=== PATIENT | female | born 2005 | race Caucasian/White ===

== ENCOUNTER 2025-06-06 02:26 | Inpatient (IN) | payer OTHER, SELFPAY ==
[2025-06-06] VITALS (25 sets, daily range): BP systolic 93–159; BP diastolic 64–100; PULSE 96–156; RESP 12–22; TEMP 36.4–37.4; O2SAT 97–100; BMI 22.0
--- NOTE | ~2025-06-06 | CT_ITS ---
EXAMINATION: CT abdomen pelvis w con DATE: 06/06/2025 03:25 INDICATION: Right abdominal pain TECHNIQUE: Computed tomography (CT) of the abdomen and pelvis was performed with 100 cc intravenous contrast. The dose-length product was 217.07 mGy-cm. Automated exposure control and iterative reconstruction technique were employed. COMPARISON: None. FINDINGS: Lung bases unremarkable. Heart size normal. No significant pleural or pericardial effusion. There is thickening of the appendix measuring 1 cm. There are small ileocecal lymph nodes, likely reactive. Small amount of free fluid is present. Appendix demonstrates thickening and mural enhancement, consistent with acute appendicitis. There are multiple enlarged lymph nodes in the right upper abdomen mesentery. There is thickening of the cecum. There is dilated distal small bowel extending to the ileocecal junction, consistent with at least partial obstruction. IUD present. Small amount of free fluid in the pelvis. The liver, spleen, pancreas, adrenal glands and right kidney are unremarkable. Severely atrophic left kidney. Gallbladder is present. No acute osseous abnormality. IMPRESSION: 1. Acute appendicitis. 2: Thickening of the cecum, likely reactive which possibly contributes to partial small bowel obstruction at the ileocecal valve. The small bowel proximal to this is thickened and dilated. No evidence for bowel perforation. No abscess identified. 3: Severe atrophic left kidney. Reviewed, dictated and finalized at location O. IMPRESSION: 1. Acute appendicitis. 2: Thickening of the cecum, likely reactive which possibly contributes to parti al small bowel obstruction at the ileocecal valve. The small bowel proximal to this is thickened and dilated. No evidence for bowel perforation. No abscess id entified. 3: Severe atrophic left kidney.
[2025-06-06 02:44] LABS: BEDSIDEPREGUCG Negative (Negative)
--- NOTE | 2025-06-06 02:44 | ED_ITS ---
HPI - Abdominal Pain General Chief Complaint: Abdominal Pain Stated Complaint: abd pain / n/ v/ d Time Seen by Provider: 06/06/25 02:31 History of Present Illness HPI narrative: 19-year-old otherwise healthy female presenting with intermittent right lower quadrant and right upper quadrant pain for a week. Reports nausea vomiting and diarrhea that started yesterday night but symptoms going on for a week for pain. Intermittent in nature. Tried Pepcid home with some intermittent relief. Is scheduled for an outpatient ultrasound of her gallbladder on Tuesday but pain worsening so she came to the ER. No abdominal surgical history. Has an IUD for control. Endorses feeling of fever. No chills, dysuria, vaginal discharge. No recent international travel or new dietary changes or anyone else with similar symptoms at home. No trauma. Related Data Home Medications ?Medication ?Instructions ?Recorded ?Confirmed ?Last Taken ?Type famotidine 20 mg tablet 20 mg PO Q12H PRN indigestio n 06/06/25 06/06/25 Unknown History Allergies Allergy/AdvReac Type Severity Reaction Status Date / Time cefdinir (From [employer] Allergy Intermediate Hives Verified 06/06/25 05:47 Review of Systems 2 Review of Systems: As reviewed above in HPI Exam 2 Narrative: GENERAL: [Well-appearing, well-nourished, and in no acute distress.] HEAD: [Normocephalic, atraumatic.] EYES: [PERRLA and EOMI.] ENT: Nares clear, no rhinorrhea or epistaxis. Mucous membranes moist. NECK: Supple. CHEST: [Clear to auscultation. No respiratory distress.] HEART: Tachycardic rate, regular rhythm. No murmur heard. [Normal peripheral pulses.] ABDOMEN: [Soft, nondistended], tender to palpation the right lower quadrant, minimal tenderness in the epigastrium/right upper quadrant, [No rigidity or guarding] EXTREMITIES: Normal range of motion. [No edema.] SKIN: Warm, dry, no rash. NEURO: [No focal deficits]. Alert and oriented [x3.] PSYCH: [Normal mood and affect.] Course Vital Signs Vital signs: Vital Signs Temperature 36.5 C 06/06/25 02:37 Pulse Rate 156 H 06/06/25 02:37 Respiratory Rate 18 06/06/25 02:37 Blood Pressure 159/100 H 10/23/25 02:37 Pulse Oximetry 100 06/06/25 02:37 Oxygen Delivery Room Air 06/06/25 02:37 Temperature 36.5 C 06/06/25 02:37 Pulse Rate 102 H 06/06/25 04:46 Respiratory Rate 14 06/06/25 04:46 Blood Pressure 124/81 06/06/25 04:45 Pulse Oximetry 98 06/06/25 04:46 Oxygen Delivery Room Air 06/06/25 02:37 MDM - Abdominal Pain MDM Narrative Medical decision making narrative: 19-year-old otherwise healthy female presenting with intermittent right lower quadrant and right upper quadrant pain for a week. Reports nausea vomiting and diarrhea that started yesterday night but symptoms going on for a week for pain. Intermittent in nature. Tried Pepcid home with some intermittent relief. Is scheduled for an outpatient ultrasound of her gallbladder on Tuesday but pain worsening so she came to the ER. No abdominal surgical history. Has an IUD for control. Endorses feeling of fever. No chills, dysuria, vaginal discharge. No recent international travel or new dietary changes or anyone else with similar symptoms at home. No trauma. Patient is very tachycardic and afebrile. Does have reproducible pain in the right lower quadrant. States she has some anxiety about being in the emergency department for the 1st time as well. Overall well-appearing not any acute distress. Given the volume loss with vomiting and diarrhea as well as pain likely driving her tachycardia but will after rule out infectious pathology as well with suspicion for possible appendicitis, cholecystitis, pancreatitis. Less likely urinary tract infection, facilities flight check pilot is, pyelonephritis, OB in nature. Broad workup underway. test ordered. She was treated with LR, Zofran, Pepcid, Toradol. CT scan with contrast obtained. Patient placed on staff trainer and re-evaluated frequently. CT scan independently reviewed and does show right lower quadrant inflammation consistent with appendicitis. Radiology confirms appendicitis as well as a local ileus versus small-bowel obstruction localized around the area. Patient's tachycardia resolved with pain control and fluids. Started on Zosyn given her allergies cefdinir. Spoke to Dr. Canseco from General surgery regarding plan of care. Will switch her to opiate level of pain control and admitted to the hospital for further management. Informed the patient of the findings and plan of care and patient was admitted to surgery at this time. Medical Records Attestation: I reviewed the patient's medical records. Lab Data Attestation: I reviewed the patient's lab results. 06/06/25 02:41 06/06/25 02:41 Labs: Lab Results 06/06/25 06/06/25 06/06/25 Range/Units 02:41 02:42 03:53 WBC 13.5 H (4.5-10.0) K/mm3 RBC 5.39 (4.2-5.4) M/mm3 Hgb 11.8 L (12.0-15.0) g/dL Hct 39.2 (37.0-47.0) % MCV 72.7 L (80-100) fl MCH 21.9 L (26-34) pg MCHC 30.1 L (32-36) g/dl RDW 15.7 H (11.5-14.5) % Plt Count 502 H (150-375) k/mm3 MPV 8.6 (7.4-10.4) fl Immature Gran % (Auto) 0.4 (0-0.5) % Neut % (Auto) 79.6 H (45.5-73.1) % Lymph % (Auto) 14.1 L (18.3-44.2) % [place] % (Auto) 5.3 (2.6-8.5) % Eos % (Auto) 0.4 (0-4.4) % Baso % (Auto) 0.2 (0.2-1.2) % Lymph # (Auto) 1.90 (0.9-3.2) K/mm3 [place] # (Auto) 0.7 H (0.1-0.6) K/mm3 Eos # (Auto) 0.1 (0-0.3) K/mm3 Baso # (Auto) 0.0 (0.0-0.1) K/mm3 Abs Immat Gran (auto) 0.06 H (0.00-0.031) K/mm3 Absolute Neuts (auto) 10.7 H (1.3-6.7) K/mm3 Absolute Nucleated RBC 0.000 (0.0-0.012) K/mm3 Nucleated RBC % 0.0 (0.0-0.2) % Sodium 137 (137-145) mmol/L Potassium 3.7 (3.4-5.0) mmol/L Chloride 102 (98-107) mmol/L Carbon Dioxide 24 (22-30) mmol/L Anion Gap 11 (4-12) mmol/L BUN 12 (7-17) mg/dL Creatinine 0.91 (0.7-1.0) mg/dL Estim Creat Clear Calc 65 ml/min Estimated GFR > 60 (59 - ) Glucose 118 H (65-110) mg/dL Lactic Acid 0.9 (0.7-2.0) mmol/L Calcium 9.6 (8.4-10.2) mg/dL Total Bilirubin 0.6 (0.2-1.3) mg/dL AST 19 (14-36) U/L ALT 11 (6-35) U/L Alkaline Phosphatase 84 (38-126) U/L Total Protein 8.5 H (6.3-8.2) g/dL Albumin 4.3 (3.5-5.1) g/dL Lipase 48 (23-300) U/L Urine Color Yellow (Yellow) Urine Appearance Turbid H (Clear) Urine pH 6.5 (5.0-9.0) Ur Specific [place] 1.026 (1.001-1.035) Urine Protein 1+ H (Negative) mg/dL Urine Glucose (UA) Negative (Negative) mg/dL Urine Ketones 2+ H (Negative) mg/dL Ur Blood (Man) Trace (Negative) Urine Nitrate Negative (Negative) Urine Bilirubin Negative (Negative) Urine Urobilinogen 1.0 (<2.0) mg/dL Add Ur Microanalysis Reviewed Leukocyte Esterase Rfl 1+ H (Negative) APARNA/UL Urine RBC 6-10 H (0-2) /hpf Urine WBC 21-50 H (0-3) /hpf Ur Squamous Epith Cells Many H (Few) /hpf Urine Bacteria 4+ H /hpf Urine Casts 3-5 POC Urine HCG, Qual Negative (Negative) Imaging Data Attestation: I personally reviewed and interpreted this imaging study as follows: My impression: Appendicitis Discharge Plan Discharge Clinical Impression: Acute appendicitis Patient Disposition: Still a Patient Condition: Stable Time of Disposition: 05:48
[2025-06-06] MEDS: LACTATED RINGERS 1,000 ML 999 ML IV CONT (02:47)
[2025-06-06] MEDS: FAMOTIDINE 20 MG/2 ML VIAL IV PUSH (02:47)
[2025-06-06] MEDS: ONDANSETRON INJ 4 MG/2 ML VIAL IV PUSH (02:47)
[2025-06-06] MEDS: KETOROLAC 15 MG/ML VIAL (*BKC) IV PUSH ×3 (02:48→22:57)
[2025-06-06 02:51] LABS: Hematocrit 39.2 % (37.0-47.0); Hemoglobin 11.8 g/dL (12.0-15.0); Immature Granulocyte Percent A 0.4 % (0-0.5); Lymphocytes Absolute Auto 1.90 K/mm3 (0.9-3.2); Mean Corpuscular HGB Conc 30.1 g/dl (32-36); Mean Corpuscular Hemoglobin 21.9 pg (26-34); Mean Corpuscular Volume 72.7 fl (80-100); Nucleated Red Blood Cells Absolute Auto 0.000 K/mm3 (0.0-0.012); Nucleated Red Blood Cells Perc 0.0 % (0.0-0.2); Platelet Count Result 502 k/mm3 (150-375); Red Blood Count 5.39 M/mm3 (4.2-5.4); White Blood Count 13.5 K/mm3 (4.5-10.0)
[2025-06-06 02:59] LABS: Add Urine Microscopic? YES; Appearance Urine Turbid (Clear); Glucose Urine UA Negative (Negative); Leukocyte Esterase Ur 1+ LEU/UL (Negative); Need Manual Microscopic Reviewed; Nitrate Urine Negative (Negative); Specific Grav Ur 1.026 (1.001-1.035)
[2025-06-06 03:03] LABS: Alanine Aminotransferase 11 U/L (6-35); Albumin Level 4.3 g/dL (3.5-5.1); Alkaline Phosphatase 84 U/L (38-126); Anion Gap 11 mmol/L (4-12); Aspartate Amino Transferase 19 U/L (14-36); Bilirubin,Total 0.6 mg/dL (0.2-1.3); Blood Urea Nitrogen 12 mg/dL (7-17); Calcium 9.6 mg/dL (8.4-10.2); Carbon Dioxide 24 mmol/L (22-30); Chloride 102 mmol/L (98-107); Estimated CRCL calculation 65 ml/min; Estimated Glomerular Filt Rate > 60; Glucose 118 mg/dL (65-110); Lipase 48 U/L (23-300); Potassium 3.7 mmol/L (3.4-5.0); Sodium 137 mmol/L (137-145); Total Protein 8.5 g/dL (6.3-8.2)
--- OUTSIDE RECORDS SUMMARY | 2025-06-06 03:33 | XMS_ITS | Clinical Summary ---
Author Organization [address] Address [address] [place] [address] Care Team Providers Care Tobacco Acreage Measurer Name Role Phone Francy Juarez MD Primary Care Provider [phone] Allergies Active Allergy Reactions Criticality Noted Date Comments Cefdinir Hives High 04/06/2007 Hives 24 hours after completing course? Allergy Medications levonorgestreL (MIRENA) IUD 1 each by intrauterine route 02/28/20 25 041 Active famotidine (PEPCID) 20 mg tabletIndications :Heartburn Take 1 tablet (20 mg total) by mouth 2 (two) times a day 60 tablet 11 05/29/20 25 026 Active lidocaine (GLYDO) 2 % jelly in applicator Apply topically as needed 02/28/20 25 025 Discontinu ed(Patient Reported) ondansetron (ZOFRAN) 4 mg tablet Take 1 tablet (4 mg total) by mouth every 8 (eight) hours as needed for nausea or vomiting for up to 3 days 9 tablet 05/09/20 25 025 Discontinu ed(Alterna te therapy) ondansetron ODT (ZOFRAN-ODT) 4 mg disintegrating tabletIndications :Nausea vomiting and diarrhea Take 1 tablet (4 mg total) by mouth every 8 (eight) hours as needed for nausea or vomiting 10 tablet 05/09/20 25 025 Discontinu ed(Patient Reported) fluconazole (DIFLUCAN) 150 mg tablet Take 1 tablet (150 mg total) by mouth once for 1 dose 1 tablet 10/04/20 25 10/04/2 025 Active Problems Problem Noted Date Diagnosed Date IUD (intrauterine device) in place 03/20/2025 Acute otitis externa 06/27/2013 Overview (05/09/2025): OV-06/27/13; OV-03/21/14; Cerumen impaction 06/27/2013 Overview (05/09/2025): OV-06/27/13 - Right; Encounters Date Type Department Care Team Description 05/29/2025 3:00 PM CDT Office Visit [facility] at [address] [address] Francy Juarez MD Abdominal pain of multiple sites (Primary Dx); Indigestion 05/28/2025 3:45 PM CDT Office Visit [facility] at [address] [phone] Dee Arnett NP Chronic RLQ pain (Primary Dx) 05/20/2025 Telephone [facility] [address] [address] Yvette Khoury LPN 05/18/2025 8:10 PM CDT - 05/18/2025 11:59 PM CDT Hospital Encounter [address] [address] Discharge Disposition: Discharge to home or self care 05/18/2025 4:15 PM CDT Office Visit [facility] at [address] [address] Shama Hawk NP Vaginal discharge (Primary Dx) 05/09/2025 8:30 AM CDT Office Visit [facility] at [address] [address] Az Becerra NP Nausea vomiting and diarrhea (Primary Dx); Tachycardia from Last 3 Months Immunizations Immunization Administration Dates Next Due DTaP 02/16/2006,05/18/2005 DTaP / HiB / IPV 03/12/2005 DTaP / IPV 03/25/2010 HPV9 02/21/2019,03/15/2016 Hep A, Pediatric 03/15/2016,03/21/2014 Hep B Vaccine 05/18/2005,2004 Hep B, Adolescent or Pediatric 03/12/2005 Hib (PRP-T) 11/24/2005,05/18/2005,01/07/2005 IPV 05/18/2005 Influenza, Quadrivalent, Spl it, Preservative Free, Intramuscular 06/07/2018,06/27/2013 Influenza, Trivalent, IM (MDV) 05/03/2012,2009,06/28/2007 Influenza, Trivalent, Preser vative Free, Intramuscular 07/02/2011,06/19/2010,06/20/2009 MMR 11/24/2005 MMRV 03/25/2010 Meningococcal Conjugate (Menveo) 03/30/2022,08/0 08/2015 Pneumococcal, Unspecified 11/24/2005,11/2004,03/12/2005,01/07 Tdap 03/15/2016 Varicella 02/16/2006 Surgical History Surgery Date Site/Laterality Comments TONSILLECTOMY Family History Relation Name Status Comments Father Alive Mother Alive Social History Tobacco Use Types Packs/Day Years Used Date Smoking Tobacco: Never Smokeless Tobacco: Never Tobacco Cessation:Counseling Given: Not Answered Alcohol Use Standard Drinks/Week Comments Never 0 (1 standard drink = 0.6 oz pur e alcohol) PHQ-2 Answer Date Recorded PHQ-2 Total Score (If total score is 3 or more points, staff should administer the PHQ-9) 0 05/29/2025 AUDIT-C Answer Date Recorded Q1: How often do you have a drink containing alcohol? Never 05/29/2025 Q2: How many drinks containi ng alcohol do you have on a typical day when you are drinking? Patient does not drink Q3: How often do you have si x or more drinks on one occasion? Never 05/29/2025 Comments Unknown Sex and Gender Information Value Date Recorded Sex Assigned at Not on file Legal Sex Female 8:14 AM CDT Gender Identity Not on file Sexual Orientation Not on file Obstetrics History Last Filed Vital Signs Vital Sign Reading Time Taken Comments Blood Pressure 122/78 05/29/2025 3:12 PM CDT Pulse 92 05/29/2025 3:12 PM CDT Temperature 36.6 C (97.9 F) 05/29/2025 3:12 PM CDT Respiratory Rate 16 05/29/2025 3:12 PM CDT Oxygen Saturation 99% 05/29/2025 3:12 PM CDT Inhaled Oxygen Concentration - - Weight 51.9 kg (114 lb 6.4 oz) 05/29/2025 3:12 P M CDT Height 154.9 cm (5' 1) 05/29/2025 3:12 PM CDT Body Mass Index 21.62 05/29/2025 3:12 PM CDT Plan of Treatment Health Maintenance Due Date Last Done Comments Regular Well Visit/Exam 18-64 2022 Influenza Vaccine (#1) 2026 8, 06/27/2013, 05/03/2012, Additional history exists Postponed from 04/15/2025 (Patient declined, but will receive in the future) DTaP/Tdap/Td Vaccine (6 - Td or Tdap) 03/15/2026 03/15/2016, 03/25/2010, 02/16/2006, Additional history exists Depression Screening 05/29/2026 05/29/2025 Hepatitis C Screening 05/29/2026 Postpo patricio from 2004 (Patient declined, but will receive in the future) Hepatitis B Screening Completed 05/18/2005 , 03/12/2005, 2004 Pneumococcal vaccine <65 Aged Out 006, 05/18/2005, 03/12/2005, Additional history exists No longer eligible based on patient's age to complete this topic Varicella Vaccines Completed 03/25/2010, 02/16/2006 HPV Vaccines Completed 02/21/2019, 03/15/2016 Meningococcal Vaccine Completed 03/30/2022, 016 Meningococcal B Vaccine Discontinued Procedures Procedure Name Priority Date/Time Associated Diagnosis Comments VAGINITIS PANEL Routine 05/18/2025 4:29 PM CDT from Last 3 Months Results * Vaginitis panel Vaginal (05/18/2025 4:29 PM CDT) Bacterial Vaginosis Not Detected Not Detected Comment:A negative result do es not preclude a possible infection. Results should be considered in conjunction with clinical presentation to determine the disease status. Iram group Not Detected Not Detected [facility] Iram glabrata/ krusei Not Detected Not Detected [facility] Trichomonas DNA Not Detected Not Detected [facility] Vaginal 05/18/2025 4:29 PM CDT 05/18/2025 8:19 PM CDT Narrative [facility] - 05/18/2025 9:19 PM CDT The [employer] Xpert Xpress MVP test detects DNA targets from anaerobic bacteria associated with bacterial vaginosis, Iram species associated with vulvovaginal candidiasis, and Trichomonas vaginalis by nucleic acid amplification testing (NAAT). Results should be interpreted in conjunction with other clinical data. This test cannot be used to assess therapeutic success or failure because target nucleic acids may persist following antimicrobial therapy. This test has been cleared by the [place] Food and Drug Administration to aid in the diagnosis of vaginal infections in symptomatic women ages 14 and older. The performance characteristics of this test have been verified by the Laboratory. Shama Hawk NP LAB MICROBIOLOGY - GENERAL ORDERABLES Final Result [facility] [address] Department [place] [address] from Last 3 Months Insurance [facility] Care Teams Tobacco Acreage Measurer Relationship Specialty Start Date End Date Francy Juarez MD [address] [address] PCP - General Family Medicine 05/29/25
--- OUTSIDE RECORDS SUMMARY | 2025-06-06 03:33 | XMS_ITS | Clinical Summary ---
Author Organization [facility] Address [address] [place] [address] Care Team Providers Care Transition Coach Name Role Phone Patient, None Per Primary Care Provider Unavaila ble Source Comments This disclosure is being made pursuant to the [employer] program and maynot contain all information available regarding this patient.[facility] Allergies Active Allergy Reactions Criticality Noted Date Comments Cefdinir Hives High 04/06/2007 Hives 24 hours after completing course? Allergy Medications No known medications Immunizations Immunization Administration Dates Next Due Influenza, Inactivated, Triv alent, 3 years and older, single dose syringe 06/13/2014 Social History Tobacco Use Types Packs/Day Years Used Date Smoking Tobacco: Never Smokeless Tobacco: Never Alcohol Use Standard Drinks/Week Comments No 0 (1 standard drink = 0.6 oz pur e alcohol) Comments No Sex and Gender Information Value Date Recorded Sex Assigned at Not on file Legal Sex Female 7:57 PM PLATEMAKER Gender Identity Not on file Sexual Orientation Not on file Last Filed Vital Signs Vital Sign Reading Time Taken Comments Blood Pressure 110/70 04/29/2018 9:21 AM CDT Pulse 102 04/29/2018 9:21 AM CDT Temperature 36.2 C (97.2 F) 04/29/2018 9:21 AM CDT Respiratory Rate 18 06/13/2015 5:46 PM CDT Oxygen Saturation 99% 04/29/2018 9:21 AM CDT Inhaled Oxygen Concentration - - Weight 52.4 kg (115 lb 9.6 oz) 04/29/2018 9:21 A M CDT Height 153.7 cm (5' 0.5) 04/29/2018 9:21 AM CDT Body Mass Index 22.2 04/29/2018 9:21 AM CDT Plan of Treatment Health Maintenance Due Date Last Done Comments Lab-Cholesterol Screening 2004 Lab-Hepatitis C Screening 2004 HPV Vaccine (9-26yo & Shared Decision 27-45yo) (1 - 3-dose series) 11/11/2019 Chlamydia Screening 2020 Meningococcal B Vaccine (1 o f 2 - Standard) 2020 Annual Wellness Visit 2022 Hepatitis B Vaccine (1 of 3 - 19+ 3-dose series) 11/11/2023 Tetanus/Pertussis Vaccine Teen/Adult (1 - Tdap) 11/11/2023 COVID-19 Vaccine (3 - 2024-2 6 season) 2025 01/09/2021, 12/19/2020 Influenza Vaccine (#1) 2025 4, 06/28/2007 Zoster (Shingles) Vaccine 50 + (1 of 2) 2054 RSV Adult (1 - 1-dose 75+ series) 11/11/2079 HIB Vaccine Aged Out No longer eligi ble based on patient's age to complete this topic Hepatitis A Vaccine Aged Out No longe r eligible based on patient's age to complete this topic IPV Vaccine Aged Out No longer eligi ble based on patient's age to complete this topic Meningococcal Conjugate Vaccine Aged Out No longer eligible b ased on patient's age to complete this topic Pneumococcal Vaccines 0-49 yo Aged Out No longer eligible based on patient's age to complete this topic RSV < 20 Months Aged Out No longer el igible based on patient's age to complete this topic Insurance Care Teams Transition Coach Relationship Specialty Start Date End Date Patient, None Per PCP - General 06/13/15
--- OUTSIDE RECORDS SUMMARY | 2025-06-06 03:33 | XMS_ITS | Clinical Summary ---
Author Organization [facility] Address [address] [place] [address] Phone Care Team Providers Care Fell Cutter Name Role Phone Identified, No Provider Primary Care Provider Un available Allergies Active Allergy Reactions Criticality Noted Date Comments Cefdinir Hives High 04/06/2007 Hives 24 hours after completing course? Allergy Medications Hospital, Clinic, or Other Facility Administered Medication Ordered Dose Route Frequency Start Date End Date Status levonorgestreL (Mirena) 21 mcg/24 hr intrauterine device (IUD) 1 eachIndications:Encount er for IUD insertion 1 each IU Every 8 Years 02/27/2025 02/23/2041 A ctive lidocaine (Glydo) 2 % mucosal gel [id number]:Enco unter for IUD insertion TP NEEDED 02/27/2025 A ctive Active Problems Problem Noted Date Diagnosed Date IUD (intrauterine device) in place 03/20/2025 Encounters Date Type Department Care Team Description 03/20/2025 9:15 AM CDT Office Visit [facility] APPLICATION SUPPORT INTERN [facility] [address] [address] Judy Lowry, MANAN IUD check up (Primary Dx); IUD (intrauterine device) in place from Last 3 Months Social History Tobacco Use Types Packs/Day Years Used Date Smoking Tobacco: Never Smokeless Tobacco: Never Tobacco Cessation:Counseling Given: Not Answered Alcohol Use Standard Drinks/Week Comments Never 0 (1 standard drink = 0.6 oz pur e alcohol) Comments No Sex and Gender Information Value Date Recorded Sex Assigned at Not on file Legal Sex Female 5:17 PM CDT Gender Identity Not on file Sexual Orientation Not on file Last Filed Vital Signs Vital Sign Reading Time Taken Comments Blood Pressure 117/75 03/20/2025 9:08 AM CDT Pulse 99 03/20/2025 9:08 AM CDT Temperature - - Respiratory Rate 18 03/20/2025 9:08 AM CDT Oxygen Saturation 100% 03/20/2025 9:08 AM CDT Inhaled Oxygen Concentration - - Weight 52.6 kg (116 lb) 03/20/2025 9:08 AM CDT Height 152.4 cm (5') 03/20/2025 9:08 AM CDT Body Mass Index 22.65 03/20/2025 9:08 AM CDT Plan of Treatment Upcoming Encounters Date Type Department Care Team (Late st Contact Info) Description 03/20/2026 9:30 AM CDT Physical [facility] APPLICATION SUPPORT INTERN [facility] [address] [place] [address] Judy Lowry, CNM [address] [facility] [address] [address] [address] [place], [place] [id number] Health Maintenance Due Date Last Done Comments Chlamydia Screening 11/11/2019 Meningococcal B Vaccine (1 of 2 - Standard) 2020 COVID-19 Vaccine (3 - season) 2025 01/09/2021, 12/19/2020 Influenza Vaccine (#1) 2025 8, 06/13/2014, 06/27/2013, Additional history exists DTaP/Tdap/Td Vaccines (7 - Td or Tdap) 03/15/2026 03/15/2016, 03/25/2010, 02/16/2006, Additional history exists Depression Screening 03/20/2026 03/20/2025, 02/28/20 25 Hepatitis B Vaccines Completed 05/18/2005, 05/18/2005, 03/12/2005, Additional history exists HIB Vaccines Completed 11/24/2005, 11/13, 05/18/2005, Additional history exists Pneumococcal Vaccines Aged Out 11/24/2005 , 11/24/2005, 05/18/2005, Additional history exists No longer eligible based on patient's age to complete this topic IPV Vaccines Completed 03/25/2010, 11/2004, 05/18/2005, Additional history exists MMR Vaccines Completed 03/25/2010, 11/24/2005 Varicella Vaccines Completed 03/25/2010, 02/16/2006 Hepatitis A Vaccines Completed 03/15/2016, 03/21/20 14 HPV Vaccines Completed 02/21/2019, 03/15/2016 Meningococcal Vaccine (ACWY) Completed 03/30/2022, 03/15/2016 Rotavirus Vaccines Aged Out No longer eligible based on patient's age to complete this topic Insurance Care Teams Fell Cutter Relationship Specialty Start Date End Date Identified, No Provider PCP - General 01/29/25
--- OUTSIDE RECORDS SUMMARY | 2025-06-06 03:33 | XMS_ITS | Clinical Summary ---
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 Allergy Medications fluconazole (DIFLUCAN) 150 MG TabletIndicatio ns:Vaginal candidiasis Take 1 tab PO x1 dose and repeat dose in 72 hours. 2 Tablet 5 Active Additional Information Patient not taking.Reported on 05/12/2025 levonorgestrel (MIRENA) 20 MCG/DAY IUD 1 Each by Intrauterine route. 5 02/24/20 41 Active Active Problems Problem Noted Date Diagnosed Date Acute otitis externa 06/27/2013 Overview (03/21/2014): OV-06/27/13; OV-03/21/14; Cerumen impaction 06/27/2013 Overview (06/27/2013): OV-06/27/13 - Right; Resolved Problems Problem Noted Date Diagnosed Date Resolved Date Mild intermittent asthma 11/08/2011 Enlargement - tonsil/adenoid 11/18/2009 03/25/2010 Otitis media 08/10/2009 03/25/2010 Overview (08/10/2009): Ov-08/07/09; Chronic serous otitis media 07/09/2009 03/25/2010 Constipation 11/03/2008 03/25/2010 Overview (11/03/2008): Dr. Rooney 03/22 Asthma 06/12/2008 11/08/2011 Overview (11/03/2008): Dr. Montoya; asthma pulmicort, singulair; home neb Premature 2004 06/12/2008 Overview (04/12/2008): 26 5/7 Speech delay 03/25/2010 Overview (04/12/2008): EI Developmental delay 03/25/20 10 Motor skill disorder 010 Overview (04/12/2008): Motor Delay- EI Encounters Date Type Department Care Team Description 05/12/2025 12:05 PM CDT Urgent Care Visit [facility] [address] [place] [address] Gregory Lopez MD Vaginal discharge (Primary Dx) Discharge Disposition: Discharged to home or Selfcare 05/12/2025 Results Follow-Up [facility] Rafita Hernandez [address] [place] [address] Gregory Lopez MD VAGINITIS SCREEN, MOLECULAR 05/12/2025 Travel 03/28/2025 12:45 PM CDT Office Visit [facility] [address] [place] [address] Carmen Sharpe, FEMI, WIND TUNNEL TECHNICIAN Encounter for PPD skin test reading (Primary Dx) Discharge Disposition: Discharged to home or Selfcare 03/27/2025 9:00 AM CDT [facility] [address] [place] [address] Brittney Gan, REPRODUCTION PRODUCTION MANAGER, WIND TUNNEL TECHNICIAN Pre-school health examination (Primary Dx) Discharge Disposition: Discharged to home or Selfcare 03/26/2025 11:30 AM CDT [facility] [address] [place] [address] Geena Buitrago, REPRODUCTION PRODUCTION MANAGER, WIND TUNNEL TECHNICIAN Encounter for PPD test (Primary Dx) Discharge Disposition: Discharged to home or Selfcare 03/26/2025 Travel from Last 3 Months Immunizations Immunization Administration Dates Next Due DTAP VACCINE 02/16/2006,05/18/2005 DTAP/HIB/IPV COMBINED VACCINE 03/12/2005 HIB Vaccine (PRP-T) 11/24/2005,05/18/2005,2004 Hepatitis B Vaccine 05/18/2005,2004 Hepatitis B Vaccine, Pediatric/adolescent 03/12/2005 Human Papillomavirus (HPV) 9 -valent Vaccine 02/21/2019 Inactivated Polio Vaccine 05/18/2005 Influenza Vaccine greater than 3 yrs 06/28/2007 Influenza Vaccine, Quadrivalent, PF 06/07/2018 MMR Vaccine 11/24/2005 Meningococcal MCV4O 03/30/2022 Pneumococcal Vaccine Peds 11/24/2005,11/2004,03/12/2005,01/07 VFC DTAP IPV COMBINED 03/25/2010 VFC FLU 3+ YEARS IM 05/03/2012,07/30/2010 VFC FLU 3+ YRS PRES FREE 07/02/2011,06/19/2010,1 08/20/2008 VFC FLU 3+ YRS PRES FREE QUAD IM 06/27/2013 VFC Human Papillomavirus 9-v alent Vaccine 03/15/2016 VFC MENINGOCOCCAL MCV4O 03/15/2016 VFC MMR/VARICELLA 03/25/2010 VFC TDAP 7+ YRS IM 03/15/2016 VFC VAQTA (Hep A) 03/15/2016,03/21/2014 Varicella Vaccine Live 02/16/2006 Social History Tobacco Use Types Packs/Day Years Used Date Smoking Tobacco: Former Smokeless Tobacco: Never Tobacco Cessation:Counseling Given: Yes Comments:smoke outside the home Alcohol Use Standard Drinks/Week Comments Not Asked 0 (1 standard drink = 0.6 oz pur e alcohol) PHQ-2 Answer Date Recorded Total Score - Questions 1-9 0 11/14 Comments No Sex and Gender Information Value Date Recorded Sex Assigned at Not on file 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 Gender Identity Not on file Sexual Orientation Not on file Last Filed Vital Signs Vital Sign Reading Time Taken Comments Blood Pressure 136/97 05/12/2025 12:13 PM CDT Pulse 92 05/12/2025 12:13 PM CDT Temperature 36.6 C (97.8 F) 05/12/2025 12:13 PM CDT Respiratory Rate 16 05/12/2025 12:13 PM CDT Oxygen Saturation 100% 05/12/2025 12:13 PM CDT Inhaled Oxygen Concentration - - Weight 51.7 kg (114 lb) 05/12/2025 12:13 PM CDT Height 154.9 cm (5' 1) 03/27/2025 9:11 AM CDT Body Mass Index 21.54 03/27/2025 9:11 AM CDT Plan of Treatment Health Maintenance Due Date Last Done Comments Hepatitis C Virus (HCV) Screening 2004 Meningococcal B Immunization (1 of 2 - Standard) 2020 Influenza Immunization (#1) 04/15/202505/16, 06/27/2013, 05/03/2012, Additional history exists SARS-COV-2 Immunization (3 - season) 2025 01/09/2021, 12/19/2020 DTaP/Tdap/Td Immunization (7 - Td or Tdap) 03/15/2026 03/15/2016, 03/25/2010, 02/16/2006, Additional history exists Respiratory Syncytial Virus (RSV) Immunization (Adult) (1 - 1-dose 75+ series) 11/11/2079 Hepatitis B Immunization Completed 005, 05/18/2005, 03/12/2005, Additional history exists Pneumococcal Immunization Combined Aged Out 11/24/2005, 05/18/2005, 03/12/2005, Additional history exists No longer eligible based on patient's age to complete this topic Measles Mumps Rubella (MMR) Immunization Discontinued 03/25/2010, 11/24/2005 Polio (IPV) Immunization Discontinued 010, 05/18/2005, 05/18/2005, Additional history exists Varicella Immunization Discontinued 03/25/2010, 2005 Hepatitis A Immunization Discontinued 03/15/2016, 02/2014 Human Papillomavirus (HPV) Immunization Completed 02/21/2019, 03/15/2016 Meningococcal Immunization (ACWY) Completed 03/30/2022, 03/15/2016 Rotavirus Immunization Aged Out No lo nger eligible based on patient's age to complete this topic Procedures Procedure Name Priority Date/Time Associated Diagnosis Comments VAGINITIS SCREEN, MOLECULAR Today 05/12/2025 12:37 PM CDT Vaginal discharge POCT URINE HCG () Routine 05/12/2025 12:26 PM CDT Vaginal discharge POCT [facility] TB TEST Routine 03/28/2025 1:14 PM CDT Encounter for PPD skin test reading INFECTIOUS DISEASE PROCEDURE 03/26/2025 12:00 AM CDT INFECTIOUS DISEASE PROCEDURE 03/26/2025 12:00 AM CDT from Last 3 Months Results * VAGINITIS SCREEN, MOLECULAR (05/12/2025 12:37 PM CDT) TRICHOMONAS NOT DETECTED NOT DETECTED 05/12/2025 7:47 PM CDT [facility] BACTERIAL VAGINOSIS NOT DETECTED NOT DETECTED 05/12/2025 7:47 PM CDT [facility] IRAM NOT DETECTED NOT DETECTED 05/12/2025 7:47 PM CDT [facility] Comment: Iram group Not detected with the following possible Iram species: Iram albicans and/or Iram tropicalis and/or Iram parapsilosis and/or Iram dubliniensis IRAM GLABRATA NOT DETECTED NOT DETECTED 05/12/2025 7:47 PM CDT [facility] IRAM KRUSEI NOT DETECTED NOT DETECTED 05/12/2025 7:47 PM CDT [facility] Other VAGINAL STRUCTURE / Unknown Non-Phlebotomy Collection / Unknown 05/12/2025 12:37 PM CDT 05/12/2025 12:37 PM CDT us Gregory Lopez MD MICROBIOLOGY - GENERAL ORDERABL ES Final Result [facility] [address] [place] [address], * POCT URINE HCG () (05/12/2025 12:26 PM CDT) POC URINE Negative POC URINE CONTROL Operations Support Representative Pass Urine 05/12/2025 12:2 6 PM CDT Gregory Lopez MD POINT OF CARE TESTING (MANUAL) Final Result * POCT [facility] TB TEST (03/28/2025 1:14 PM CDT) TB SKIN TEST 0mm Comment:Negative 03/28/2025 1:14 PM CDT Geena Buitrago APRN, CNP POINT OF CARE TESTING (MANUAL) Final Result * INFECTIOUS DISEASE PROCEDURE (03/26/2025 12:00 AM CDT) 03/26/2025 Provider Scan GEN ORDERS Final Result SCAN * INFECTIOUS DISEASE PROCEDURE (03/26/2025 12:00 AM CDT) 03/26/2025 Provider Scan GEN ORDERS Final Result SCAN from Last 3 Months Insurance MEDICAID [place] [employer] Care Teams Diesel Mechanic Relationship Specialty Start Date End Date Provider, Unknown UNKNOWN PCP - General 10/05/24
--- NOTE | 2025-06-06 03:54 | PC.NURSE ---
1st set of blood cultures by bowen rn - right forearm with chg wipe and kurin device. 2nd set of blood cultures by sundeep jamil - left ac with chg and kurin device.
[2025-06-06] MEDS: PIPERACILLIN/TAZOBACTAM SOD 4.5 GM in SODIUM CHLORIDE 0.9% IV 100 ML 200 ML IVPB ×2 (03:55→12:16)
--- NOTE | 2025-06-06 05:33 | PC.NURSE ---
Pt unhooked from monitors to use restroom. Ambulatory with a steady gait.
--- NOTE | 2025-06-06 09:22 | P.HP_ITS ---
H&P: HPI History of Present Illness Date/Time: 06/06/25 09:22 <Chinmayyuri Dill, DO - Last Filed: 06/06/25 09:34> Chief Complaint: Abdominal pain, nausea, vomiting <Chinmayyuri Dill, DO - Last Filed: 06/06/25 09:34> Narrative: Patient is a 19 yo f with no reported PMH who presented to the ED complaining of RLQ abdominal pain for the past week. She reports a 2 weeks history of vague epigastric discomfort that she describes as a sharp pain that would last a few minutes. Her PCP started her on pepcid for this. She reports for approximately 1 week she began having 1 week of RLQ abdominal pain. She has never had anything like this. She reports associated nausea and vomiting. She continues to have normal BMs. On exam, her abdomen is TTP in RLQ. Her tachycardia is improving, now regular rate, HDS. She is afebrile. She had a CT scan that showed a dilated appendix with periappendiceal fat stranding, fluid in the pelvis, and some dilated loops of small bowel also in the pelvis consitent with acute appendicitis. The appendix does not appear to be perforated and there is no evidence of abscess on CT. She has a leukocytosis with a WBC of 13.5. She has never had intraabdominal surgery. <Chinmay Dill, DO - Last Filed: 06/06/25 09:34> Review of Systems Review of Systems: 12 point ROS negative except HPI <Chinmayyuri Dill DO - Last Filed: 06/06/25 09:34> [facility] Family History Family History: Family History (Updated 06/06/25 @ 05:57 by Edison Liz RN) Grandparent Cancer Hypertension <Chinmay Dill DO - Last Filed: 06/06/25 09:34> Social History Social History: Social History Smoking status: Never smoker Alcohol intake: never Substance use: never Lack of Transportation: No Lack of Food: Never True Current Housing: I Have Housing Concerned About Future Housing: No Difficulty Paying Gas/Electric Bills: No Difficulty Paying for Meds: No Currently Unemployed: No Education: High School Diploma/GED Difficulty w/ Childcare or Family Care: No Spiritual care concerns: No <Chinmay Dill, DO - Last Filed: 06/06/25 09:34> Meds Home Medications and Allergies Home medications: Home Medications ?Medication ?Instructions ?Recorded ?Confirmed ?Type famotidine 20 mg tablet 20 mg PO Q12H PRN indigestio n 06/06/25 06/06/25 History <Chinmay Dill, DO - Last Filed: 06/06/25 09:34> Allergies/Adverse reactions: Allergies Allergy/AdvReac Type Severity Reaction Status Date / Time cefdinir (From [employer]) Allergy Intermediate Hives Verified 06/06/25 05:51 <Chinmay Dill, DO - Last Filed: 06/06/25 09:34> Vital Signs Vital Signs - 24 hr 06/06/25 02:37 06/06/25 02:55 06/06/25 03:00 Temperature 97.7 F Pulse Rate 156 H 103 H Respiratory Rate 18 12 Blood Pressure 159/100 H 125/86 Pulse Oximetry 100 100 100 Oxygen Delivery Room Air 06/06/25 03:01 06/06/25 03:30 06/06/25 03:31 Temperature Pulse Rate 110 H 105 H 111 H Respiratory Rate 14 13 Blood Pressure 126/90 Pulse Oximetry 100 100 100 Oxygen Delivery 06/06/25 03:45 06/06/25 04:20 06/06/25 04:29 Temperature Pulse Rate 122 H 100 100 Respiratory Rate 20 16 18 Blood Pressure 126/89 Pulse Oximetry 99 98 97 Oxygen Delivery 06/06/25 04:30 06/06/25 04:31 06/06/25 04:45 Temperature Pulse Rate 103 H 101 H 96 Respiratory Rate 16 16 12 Blood Pressure 121/85 124/81 Pulse Oximetry 97 97 99 Oxygen Delivery 06/06/25 04:46 06/06/25 05:55 06/06/25 06:00 Temperature 97.9 F 97.5 F L Pulse Rate 102 H 98 110 H Respiratory Rate 14 16 16 Blood Pressure 102/76 122/84 Pulse Oximetry 98 98 97 Oxygen Delivery <Chinmay Dill, DO - Last Filed: 06/06/25 09:34> Exam Narrative: General: Awake, alert, NAD HEENT: NCAT, mucous membranes pink and moist Neck: No masses or swelling, no JVD Heart: intermittent tachycardia, otherwise HDS Lungs: Symmetric expansion, no IWOB, on RA Abdomen: Soft, TTP in RLQ, ND, nonperitoneal Extremities: Moves all, normal inspection Psych: Normal affect, normal mood, normal judgment <Chinmay Dill DO - Last Filed: 06/06/25 09:34> H&P: Results Labs Labs: Short CBC 06/06/25 Range/Units 02:41 WBC 13.5 H (4.5-10.0) K/mm3 Hgb 11.8 L (12.0-15.0) g/dL Hct 39.2 (37.0-47.0) % Plt Count 502 H (150-375) k/mm3 BMP 06/06/25 02:41 Sodium 137 Potassium 3.7 Chloride 102 Carbon Dioxide 24 BUN 12 Creatinine 0.91 Glucose 118 H Calcium 9.6 Liver Function 06/06/25 Range/Units 02:41 Total Bilirubin 0.6 (0.2-1.3) mg/dL AST 19 (14-36) U/L ALT 11 (6-35) U/L Alkaline Phosphatase 84 (38-126) U/L Albumin 4.3 (3.5-5.1) g/dL Urine 06/06/25 Range/Units 02:41 Urine Color Yellow (Yellow) Urine Appearance Turbid H (Clear) Urine pH 6.5 (5.0-9.0) Ur Specific [place] 1.026 (1.001-1.035) Urine Protein 1+ H (Negative) mg/dL Urine Glucose (UA) Negative (Negative) mg/dL <Chinmay Dill DO - Last Filed: 06/06/25 09:34> Assessment and Plan Assessment and plan (1) Acute appendicitis: Code(s): K35.80 - Unspecified acute appendicitis <Chinmay Dill DO - Last Filed: 06/06/25 09:34> Status: Acute <Chinmay Dill DO - Last Filed: 06/06/25 09:34> Assessment and Plan: See below <Isaiah Canseco MD - Last Filed: 06/06/25 11:11> Assessment and Plan: 19 yo F with acute appendicitis - CTAP showing acute appendicitis with a dilated appendix, periappendiceal fat stranding, small amount of fluid in the pelvis and dilated loops of small bowel within the pelvis, likely secondary to inflammation and reactive fluid in the pelvis. - I discussed the risks, benefits, and alternatives of proceeding with laparoscopic appendectomy. The patient expressed understanding and wishes to proceed with the procedure. All questions were answered. Plan - Observation - As needed pain and antinausea meds - NPO - IVF - IV abx - OR today for laparoscopic appendectomy - Likely discharge home postoperatively Dispo: lap appy today, likely DC postoperatively A&P discussed with Dr. Canseco <Chinmay Dill DO - Last Filed: 06/06/25 09:34> 19 yo F with acute appendicitis - CTAP showing acute appendicitis with a dilated appendix, periappendiceal fat stranding, small amount of fluid in the pelvis and dilated loops of small bowel within the pelvis, likely secondary to inflammation and reactive fluid in the pelvis. - I discussed the risks, benefits, and alternatives of proceeding with laparoscopic appendectomy. The patient expressed understanding and wishes to proceed with the procedure. All questions were answered. Plan - Observation - As needed pain and antinausea meds - NPO - IVF - IV abx - OR today for laparoscopic appendectomy - Likely discharge home postoperatively Dispo: lap appy today, likely DC postoperatively A&P discussed with Dr. Canseco Patient seen and evaluated with surgical supply assistant. Patient has leukocytosis and exam consistent with acute appendicitis. I personally reviewed the CT scan and confirmation with CT scan showing a dilated and inflamed appendix also confirmatory with a clinical diagnosis. Agree with proceeding with laparoscopic appendectomy possible conversion open later today. Continue IV antibiotics and NPO status for now. <Isaiah Canseco MD - Last Filed: 06/06/25 11:11>
--- NOTE | 2025-06-06 11:12 | WPDHPUPDATE1 ---
History and Physical Update Update Date/Time: 06/06/25 11:12 History and Physical has been reviewed, including an updated exam of the patient. There are NO changes in the patient's condition. Risks, benefits, and alternatives have been discussed and questions answered. Patient agrees to proceed with procedure.
--- NOTE | 2025-06-06 13:05 | PC.NURSE ---
Patient to surgery dept at 1305.
[2025-06-06] MEDS: LACTATED RINGERS 1,000 ML 30 ML IV CONT ×2 (13:10→15:08)
--- NOTE | 2025-06-06 13:23 | WPDANESEPPF ---
Anes - Initial Pre Proc Eval Procedure: Operation Date: 06/06/25 14:00 Proposed Procedures p Laparoscopic Appendectomy - Isaiah Canseco MD Date/Time: 06/06/25 13:23 Surgeon: Isaiah Canseco MD Pre Op Diagnosis: Acute appendicitis Patient Data Age: 19 Gender: F Height: 1.55 m Weight: 52.9 kg Last Vital Signs Temp 97.5 F L 06/06/25 06:00 Pulse 110 H 06/06/25 06:00 Resp 16 06/06/25 06:00 BP 122/84 06/06/25 06:00 Pulse Ox 97 06/06/25 06:00 O2 Del Method Room Air 06/06/25 08:21 Allergies Allergy/AdvReac Type Severity Reaction Status Date / Time cefdinir (From Omnicef) Allergy Intermediate Hives Verified 06/06/25 05:51 Home Medications ?Medication ?Instructions ?Recorded ?Confirmed ?Type famotidine 20 mg tablet 20 mg PO Q12H PRN indigestion 06/06/25 06/06/25 History Laboratory Tests 06/06/25 06/06/25 06/06/25 02:41 02:42 03:53 WBC 13.5 H K/mm3 (4.5-10.0) RBC 5.39 M/mm3 (4.2-5.4) Hgb 11.8 L g/dL (12.0-15.0) Hct 39.2 % (37.0-47.0) MCV 72.7 L fl (80-100) MCH 21.9 L pg (26-34) MCHC 30.1 L g/dl (32-36) RDW 15.7 H % (11.5-14.5) Plt Count 502 H k/mm3 (150-375) MPV 8.6 fl (7.4-10.4) Immature Gran % (Auto) 0.4 % (0-0.5) Neut % (Auto) 79.6 H % (45.5-73.1) Lymph % (Auto) 14.1 L % (18.3-44.2) [place] % (Auto) 5.3 % (2.6-8.5) Eos % (Auto) 0.4 % (0-4.4) Baso % (Auto) 0.2 % (0.2-1.2) Lymph # (Auto) 1.90 K/mm3 (0.9-3.2) [place] # (Auto) 0.7 H K/mm3 (0.1-0.6) Eos # (Auto) 0.1 K/mm3 (0-0.3) Baso # (Auto) 0.0 K/mm3 (0.0-0.1) Abs Immat Gran (auto) 0.06 H K/mm3 (0.00-0.031) Absolute Neuts (auto) 10.7 H K/mm3 (1.3-6.7) Absolute Nucleated RBC 0.000 K/mm3 (0.0-0.012) Nucleated RBC % 0.0 % (0.0-0.2) Sodium 137 mmol/L (137-145) Potassium 3.7 mmol/L (3.4-5.0) Chloride 102 mmol/L (98-107) Carbon Dioxide 24 mmol/L (22-30) Anion Gap 11 mmol/L (4-12) BUN 12 mg/dL (7-17) Creatinine 0.91 mg/dL (0.7-1.0) Estim Creat Clear Calc 65 ml/min Estimated GFR > 60 (59 - ) Glucose 118 H mg/dL (65-110) Lactic Acid 0.9 mmol/L (0.7-2.0) Calcium 9.6 mg/dL (8.4-10.2) Total Bilirubin 0.6 mg/dL (0.2-1.3) AST 19 U/L (14-36) ALT 11 U/L (6-35) Alkaline Phosphatase 84 U/L (38-126) Total Protein 8.5 H g/dL (6.3-8.2) Albumin 4.3 g/dL (3.5-5.1) Lipase 48 U/L (23-300) Urine Color Yellow (Yellow) Urine Appearance Turbid H (Clear) Urine pH 6.5 (5.0-9.0) Ur Specific [place] 1.026 (1.001-1.035) Urine Protein 1+ H mg/dL (Negative) Urine Glucose (UA) Negative mg/dL (Negative) Urine Ketones 2+ H mg/dL (Negative) Ur Blood (Man) Trace (Negative) Urine Nitrate Negative (Negative) Urine Bilirubin Negative (Negative) Urine Urobilinogen 1.0 mg/dL (<2.0) Add Ur Microanalysis Reviewed Leukocyte Esterase Rfl 1+ H APARNA/UL (Negative) Urine RBC 6-10 H /hpf (0-2) Urine WBC 21-50 H /hpf (0-3) Ur Squamous Epith Cells Many H /hpf (Few) Urine Bacteria 4+ H /hpf Urine Casts 3-5 POC Urine HCG, Qual Negative (Negative) Patient hx anesthesia problems: none Family hx anesthesia problems: none Results Review: All pre-operative results and documents have been reviewed as part of the pre-operative evaluation. [facility] Family History Family History Grandparent Cancer Hypertension Social History Social History Smoking status: Never smoker Alcohol intake: never Substance use: never Lack of Transportation: No Lack of Food: Never True Current Housing: I Have Housing Concerned About Future Housing: No Difficulty Paying Gas/Electric Bills: No Difficulty Paying for Meds: No Currently Unemployed: No Education: High School Diploma/GED Difficulty w/ Childcare or Family Care: No Spiritual care concerns: No Anes - Eval Final PreProcedure Day of Procedure 06/06/25 13:23 Patient weight: normal and thin Lungs: normal air movement Airway: Mallampati scale class II Neurological: alert and oriented Last oral intake: >/= 8 hours ASA classification: I Emergent: no Anesthetic plan: proceed Anesthesia type and monitoring: general ETT and standard monitoring Results Review: All pre-operative results and documents have been reviewed as part of the pre-operative evaluation. Healthy, acute appendicitis. Informed Consent: The patient's anesthetic plan and its attendant risks and benefits were discussed with the patient/family/POA. Questions were solicited and answers provided to the satisfaction of the patient/family/POA.
[2025-06-06] MEDS: LIDO 1%/EPINEPHRINE 1:100,000 50 ML VIAL (14:13)
--- NOTE | 2025-06-06 14:54 | S_PTH ---
PATIENT: Francy Clifford LOC: [id number] U#:[id number] AGE/SX: 19/F ROOM: 309 RE06/06/[address]: Isaiah Canseco MD : 2005 BED: 01 DIS: 06/07/2025 SPEC #: [id number] RECD: 06/07/25 08:01 STATUS: MARCO REQ #: [id number] SARA: 06/06/25 14:[address]: Isaiah Canseco DEPT: [facility] Surgical RECD BY: Evelyn Sevilla ENTERED: 06/07/25 08:01 SP TYPE: Surgical OTHR DR: Jer Parra MD Tissues: A - Appendix Procedures: Hematoxylin and Eosin Stain Gross and Microscopic Level 3
--- NOTE | 2025-06-06 15:17 | W.PM.PROC2 ---
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 Upon workup she had elevated white blood count of 13,000. CT scan abdomen pelvis showed a dilated and inflamed appendix up to 1.2cm in diameter with some ascites fluid in the pelvis but no evidence of perforation or periappendiceal abscess. There was thickening of the cecum to suggest active inflammation of the cecum as well. Findings The patient had a retrocecal acute appendicitis. The appendix was inflamed all the way to the base but the base was viable. There is no perforation. There was reactive induration and inflammation of the cecum around the base of the appendix. There was nonpurulent ascites fluid in the pelvis but no abscess. Description of Procedure After informed consent was obtained patient brought to the operating room she was placed supine position and general endotracheal anesthesia was administered. A Hyatt catheter was placed to decompress the bladder the abdomen was then prepped and draped usual sterile fashion. A time-out was then performed correctly identifying the patient as well as procedure to be performed. She was given Zosyn for perioperative IV antibiotics. I then proceeded to enter the abdomen in the left upper quadrant utilizing a 5mm Optiview port. Once inside the abdomen insufflated to adequate pneumoperitoneum of 15mmHg of CO2. I was then able to place a 5mm suprapubic trocar port as well as a 12mm periumbilical trocar port and a 5mm right lower quadrant trocar port all under direct visualization. There was reactive ascites fluid in the pelvis without any purulence. There is a mild phlegmon in the right lower quadrant with inflammation of the terminal ileum as well as the cecum but initially I could not see the appendix as it appeared to be retrocecal. The cecum was adherent to the right lateral abdominal sidewall by some thickened peritoneum. Working laparoscopic instruments I was able to try to rotate the cecum medially and divided lateral peritoneal attachment with energized hook. Once that peritoneal adhesion to the right lateral sidewall was divided I was able to fully rotate the cecum medially and identified the retrocecal appendix. The appendix appeared to be inflamed throughout its whole course all the way up to the base of the appendix at the cecum there is no obvious evidence of perforation or gangrene of the appendix grossly. I was then able to elevate the appendix and make a defect through the mesoappendix about a cm away from the base of the appendix. This is done with a laparoscopic dissected. I then used a vascular load to the 45mm Endo-NIMO stapler to divide the mesoappendix. I was then able to hold up the appendix to try to identify the base better. There was still a portion of the mesoappendix which was very indurated and within this portion was the appendiceal artery. I continued dissection of the mesentery up to the base. The appendiceal artery was cauterized and was partially thrombosed so did not bleed very much at all. Once I had the base of the appendix at the cecum identified I then proceeded to divide the appendix flush with the cecum with a blue load to the Endo-NIMO stapler. The appendix was free and then placed into an Endo-Catch bag and brought out through periumbilical trocar port site. It was sent to pathology for examination. I then examined the staple lines on the mesoappendix and the appendiceal stump. Both were hemostatic. Both staple lines appeared to be intact. I then irrigated out the right lower quadrant the abdomen and the cul-de-sac of the pelvis with sterile saline solution. The fluid was aspirated and there was no evidence of bleeding. I then proceeded to remove the trocar ports under direct visualization all the port sites appeared hemostatic. The abdomen was allowed to decompress. The 12mm periumbilical trocar port fascial defect was then closed utilizing 0 Vicryl suture at the fascial level. The skin edges in all the port sites were then approximated utilizing a running subcuticular 4-0 Monocryl suture. The incisions were then cleaned and then skin glue was applied. At the end the case the Hyatt catheter was removed. The patient tolerated the procedure well no complications. All sponges, needles, and instrument counts were correct at the end procedure. EBL was _20__cc. The patient was awakened and taken to recovery in stable and satisfactory condition. Implants None Estimated Blood Loss 20 Drains No Packing No Pathology Yes (Appendix to pathology) Complications No immediate complications Condition Stable Disposition PACU [facility] Billing Surgery - Charge Forward: Surgery Billing
[2025-06-06] MEDS: LACTATED RINGERS 1,000 ML 100 ML IV CONT (17:37)
[2025-06-06] MEDS: PIPERACILLIN/TAZOBACTAM SOD 3.375 GM in SODIUM CHLORIDE 0.9% IV 50 ML 100 ML IVPB (19:33)
[2025-06-06] MEDS: HYDROcodone/acetaminophen (*CRX) 5-325 MG TABLET 1 TAB PO (19:33)
[2025-06-06] MEDS: FAMOTIDINE 20 MG TABLET PO (22:57)
[2025-06-07 03:28] VITALS: BP 108/75; PULSE 75; RESP 18; TEMP 36.6; O2SAT 99
[2025-06-07] MEDS: PIPERACILLIN/TAZOBACTAM SOD 3.375 GM in SODIUM CHLORIDE 0.9% IV 50 ML 100 ML IVPB (03:48)
[2025-06-07] MEDS: HYDROcodone/acetaminophen (*CRX) 5-325 MG TABLET 1 TAB PO ×2 (03:57→08:38)
[2025-06-07] MEDS: LACTATED RINGERS 1,000 ML 100 ML IV CONT (03:59)
[2025-06-07 06:41] LABS: Hematocrit 26.6 % (37.0-47.0); Hemoglobin 7.9 g/dL (12.0-15.0); Immature Granulocyte Percent A 0.4 % (0-0.5); Lymphocytes Absolute Auto 1.33 K/mm3 (0.9-3.2); Mean Corpuscular HGB Conc 29.7 g/dl (32-36); Mean Corpuscular Hemoglobin 22.1 pg (26-34); Mean Corpuscular Volume 74.3 fl (80-100); Nucleated Red Blood Cells Absolute Auto 0.000 K/mm3 (0.0-0.012); Nucleated Red Blood Cells Perc 0.0 % (0.0-0.2); Platelet Count Result 336 k/mm3 (150-375); Red Blood Count 3.58 M/mm3 (4.2-5.4); White Blood Count 12.4 K/mm3 (4.5-10.0)
[2025-06-07 07:27] LABS: Anisocytosis 1+; Hypochromasia 2+; Schistocytes None Seen
--- NOTE | 2025-06-07 08:41 | PM.PNGS ---
Progress Note: A&P Assessment and Plan (1) Acute appendicitis: Code(s): K35.80 - Unspecified acute appendicitis <Chinmay Dill DO - Last Filed: 06/07/25 09:01> Status: Acute <Chinmay Dill DO - Last Filed: 06/07/25 09:01> Assessment and Plan: See below <Isaiah Canseco MD - Last Filed: 06/07/25 09:18> Assessment and Plan: 19 yo f with acute appendicitis - POD#1 s/p laparoscopic appendectomy Plan - As needed pain and antinausea meds - General diet - DC IVF - Doing well postoperatively - DC home today Plan d/w Dr. Canseco <Chinmay Dill DO - Last Filed: 06/07/25 09:01> 19 yo f with acute appendicitis - POD#1 s/p laparoscopic appendectomy Plan - As needed pain and antinausea meds - General diet - DC IVF - Doing well postoperatively - DC home today Plan d/w Dr. Canseco Patient seen this morning at bedside. She is doing well. Her right lower quadrant pain has resolved. To some minor soreness around the port sites. White blood cell count down to 12,000. She was on Zosyn overnight but is now off any IV antibiotics. She will need some oral [place] for pain medication overnight. Up walking around urinating fine. Tolerating solid diet. No fever incisions were healing well on examination. Okay to discharge home today. Follow up in the office in 2 weeks. <Isaiah Canseco MD - Last Filed: 06/07/25 09:18> Subjective Subjective Date/Time Seen: 06/07/25 08:41 <Chinmay Dill DO - Last Filed: 06/07/25 09:01> Interval history: NAEON. POD #1 s/p laparoscopic appendectomy. Tolerating diet without n/v. Ambulating. Urinating. VSS. Incisions CDI. Abdomen aTTP. Labs as expected postop. Feels ready to DC home. <Chinmay Dill DO - Last Filed: 06/07/25 09:01> Review of Systems Review of Systems: 12 point ROS negative except HPI <Chinmay Dill DO - Last Filed: 06/07/25 09:01> Exam Narrative: General: Awake, alert, NAD HEENT: NCAT, mucous membranes pink and moist Neck: No masses or swelling, no JVD Heart: intermittent tachycardia, otherwise HDS Lungs: Symmetric expansion, no IWOB, on RA Abdomen: Soft, aTTP, incisions CDI, ND, nonperitoneal Extremities: Moves all, normal inspection Psych: Normal affect, normal mood, normal judgment <Chinmay Dill DO - Last Filed: 06/07/25 09:01> Objective Data Vital Signs Vital Signs: Vital Signs - 24 hr 06/06/25 13:10 06/06/25 15:08 06/06/25 15:20 Temperature 99.3 F 98.2 F Pulse Rate 132 H 118 H 118 H Respiratory Rate 16 22 H 20 Blood Pressure 124/89 126/78 93/75 L Pulse Oximetry 100 100 100 Oxygen Delivery Room Air Simple Face Mask Room Air Oxygen Flow Rate 8 06/06/25 15:35 06/06/25 15:50 06/06/25 16:00 Temperature Pulse Rate 113 H 109 H 110 H Respiratory Rate 18 18 18 Blood Pressure 131/85 124/80 122/87 Pulse Oximetry 99 98 98 Oxygen Delivery Room Air Room Air Room Air Oxygen Flow Rate 06/06/25 16:15 06/06/25 16:30 06/06/25 19:33 Temperature 98.8 F 98.8 F 98.4 F Pulse Rate 122 H 119 H 111 H Respiratory Rate 16 16 18 Blood Pressure 127/64 117/81 119/89 Pulse Oximetry 98 98 98 Oxygen Delivery Oxygen Flow Rate 06/06/25 20:00 06/07/25 03:28 Temperature 97.9 F Pulse Rate 111 H 75 Respiratory Rate 18 18 Blood Pressure 108/75 Pulse Oximetry 98 99 Oxygen Delivery Room Air Oxygen Flow Rate <Chinmay Dill DO - Last Filed: 06/07/25 09:01> Intake/Output Intake/Output: Intake & Output 06/04/25 06/05/25 06/06/25 06/07/25 23:59 23:59 23:59 23:59 Intake Total 1376 1290 Balance 1376 1290 <Chinmay Dill DO - Last Filed: 06/07/25 09:01> Meds/Results Medications: Active Medications Generic Name Dose Route Start Last Admin Trade Name Freq PRN Reason Stop Dose Admin Acetaminophen 650 mg 06/06/25 03:57 Acetaminophen 325 Mg Tablet PO Q4H PRN Mild Pain (1-3) or Fever Hydrocodone Bitart/Acetaminophen 1 tab 06/06/25 03:57 06/07/25 08:38 Hydrocodone/Acetaminophen (*Crx) 5-325 Mg Tablet PO 1 tab Q4H PRN Administration Pain Rated 4-6 Famotidine 20 mg 06/06/25 16:03 06/06/25 22:57 Famotidine 20 Mg Tablet PO 20 mg Q12H PRN Administration Indigestion Lactated Ringer's 1,000 mls @ 100 mls/hr 06/06/25 12:55 06/07/25 03:59 Lr - Lactated Ringers Iv IV CONT 100 mls/hr .Q10H JAZMYN Administration Piperacillin Sod/Tazobactam 50 mls @ 100 mls/hr 06/06/25 20:00 06/07/25 04:18 Sod 3.375 gm/ Sodium Chloride IVPB Infused Q8H JAZMYN Infusion Ketorolac Tromethamine 15 mg 06/06/25 16:03 06/06/25 22:57 Ketorolac 15 Mg/Ml Vial (*Bkc) IV PUSH 15 mg Q6H PRN Administration Pain Rated 4-6 Ondansetron HCl 4 mg 06/06/25 03:57 Ondansetron Inj 4 Mg/2 Ml Vial IV PUSH Q4H PRN Nausea <Chinmay Dill DO - Last Filed: 06/07/25 09:01> Radiology Results: ITS Impressions Abdomen/Pelvis CT 06/06/25 07:35 IMPRESSION: 1. Acute appendicitis. 2: Thickening of the cecum, likely reactive which possibly contributes to partial small bowel obstruction at the ileocecal valve. The small bowel proximal to this is thickened and dilated. No evidence for bowel perforation. No abscess identified. 3: Severe atrophic left kidney. <Chinmay Dill DO - Last Filed: 06/07/25 09:01> Labs Labs: Laboratory Results - last 24 hr 06/07/25 06:00 WBC 12.4 H RBC 3.58 L Hgb 7.9 L D Hct 26.6 L MCV 74.3 L MCH 22.1 L MCHC 29.7 L RDW 15.8 H Plt Count 336 MPV 9.4 Immature Gran % (Auto) 0.4 Neut % (Auto) 82.1 H Lymph % (Auto) 10.7 L [place] % (Auto) 6.6 Eos % (Auto) 0.0 Baso % (Auto) 0.2 Lymph # (Auto) 1.33 [place] # (Auto) 0.8 H Eos # (Auto) 0.0 Baso # (Auto) 0.0 Abs Immat Gran (auto) 0.05 H Absolute Neuts (auto) 10.2 H Absolute Nucleated RBC 0.000 Band Neutrophils % Not Reportable Nucleated RBC % 0.0 Platelet Estimate Adequate Hypochromasia 2+ Anisocytosis 1+ Schistocytes None seen <Chinmay Dill, DO - Last Filed: 06/07/25 09:01>
--- NOTE | 2025-06-07 12:44 | P.DS_ITS ---
DS: Admitting Diagnosis Discharge Date 06/07/25 Admitting Diagnosis Acute appendicitis DS: Discharge Diagnosis Discharge Diagnosis Plan 19 yo F with acute appendicitis -s/p laparoscopic appendectomy 06/06 -Regular diet -As needed pain meds prescribed -No lifting more than 10 lbs for 2 weeks -Okay to shower, do not submerge incisions for at least 2 weeks DS: Summary Hospital Course Reason for hospitalization: Acute appendicitis Hospital Course: Patient was admitted on 06/06 for acute appendicitis. She underwent a laparoscopic appendectomy on 06/06. She did well postoperatively. She ambulated, tolerated a regular diet, and urinated. Pain well controlled on PO pain medications. The remainder of her hospitalization was unremarkable and she was discharged home in stable condition on 06/07. Status at Discharge Cognitive/behavioral status at discharge: Stable Exam Narrative: General: Awake, alert, NAD HEENT: NCAT, mucous membranes pink and moist Neck: No masses or swelling, no JVD Heart: intermittent tachycardia, otherwise HDS Lungs: Symmetric expansion, no IWOB, on RA Abdomen: Soft, aTTP, incisions CDI, ND, nonperitoneal Extremities: Moves all, normal inspection Psych: Normal affect, normal mood, normal judgment DS: Data Data Completed and Pending Pending studies at discharge: Pending at discharge 06/06/25 14:54 Surgical [PTH] Routine Labs on day of discharge: Labs from last 24 hours 06/07/25 06:00 WBC 12.4 H RBC 3.58 L Hgb 7.9 L D Hct 26.6 L MCV 74.3 L MCH 22.1 L MCHC 29.7 L RDW 15.8 H Plt Count 336 MPV 9.4 Immature Gran % (Auto) 0.4 Neut % (Auto) 82.1 H Lymph % (Auto) 10.7 L [place] % (Auto) 6.6 Eos % (Auto) 0.0 Baso % (Auto) 0.2 Lymph # (Auto) 1.33 [place] # (Auto) 0.8 H Eos # (Auto) 0.0 Baso # (Auto) 0.0 Abs Immat Gran (auto) 0.05 H Absolute Neuts (auto) 10.2 H Absolute Nucleated RBC 0.000 Band Neutrophils % Not Reportable Nucleated RBC % 0.0 Platelet Estimate Adequate Hypochromasia 2+ Anisocytosis 1+ Schistocytes None seen Procedures/Treatments: Laparoscopic Appendectomy 06/06 Discharge Plan Discharge Attending physician on discharge: Isaiah Canseco Consulting providers: Jer Parra; German Licea; Juan Sanchez Discharging Clinician: Isaiah Canseco Patient Disposition: Home Activity: other - see discharge instructions Diet: regular Wound Care Instructions: other - see discharge instructions Discharge Instructions: May discharge home when stable. Follow up with Dr. Canseco in the office in 2 weeks. Patient to call [phone] for an appointment. May shower in 24hours but do not soak incisions under water for 2 weeks. No lifting more than 10 to 15 lb for 2 weeks. May advance diet as tolerated. No driving for at least 3 days or until no longer taking any narcotic pain medication. Resume all home medications. Prescription for narcotic pain medicines will be sent to the patient's pharmacy if needed. May use Tylenol and/or ibuprofen in addition to or in place of narcotic pain medications for postoperative pain. Patient Instructions: Antibiotic Form Patient Language: Senegalese Stand Alone Forms: General Discharge Information Follow-up/Referrals: Isaiah Canseco MD [Physician, General Surgery] Referral Note: Follow-up with Dr. Canseco in the office in 2 weeks. Discharge Medications: New hydrocodone-acetaminophen 5-325 mg tablet 1 tablet PO Q4H PRN (Reason: pain) Qty: 12 0RF Continued famotidine 20 mg tablet 20 mg PO Q12H PRN (Reason: indigestion) Date of admission: 06/06/25 03:58 Primary Care Provider: Ann,Francy Admitting Provider: Isaiah Canseco Attending physician on admission: Isaiah Canseco Condition: Stable
== END 2025-06-07 11:00 | disposition home or self-care (01) | DRG 234 ==
LOC: ANHED 03:31 → ANH3MEDSUR 04:38
PROVIDERS: Admitting Provider Surgery; Emergency Provider Student in an Organized Health Care Education/Training Program; Visit Provider Surgery
PROC: 0DTJ4ZZ Resection of Appendix, Percutaneous Endoscopic Approach (ICD-10-PCS; CPT 44970; principal; 2025-06-06 14:00)
DX: K35.80 Unspecified acute appendicitis (principal)
CPT/HCPCS: 36415; 74177; 80053; 81001; 81025; 83605; 83690; 85025; 87040; 88304; 96361; 96374; 96375; 99285; A9270; J1100; J1885; J2003; J2004; J2250; J2405; J2543; J2704; J3010; J7120; Q9967

== ENCOUNTER 2025-06-12 13:06 | Inpatient (IN) | payer OTHER, SELFPAY ==
[2025-06-12] VITALS (10 sets, daily range): BP systolic 112–156; BP diastolic 78–98; PULSE 87–149; RESP 14–20; TEMP 36.4–36.6; O2SAT 99–100; BMI 21.9
--- NOTE | ~2025-06-12 | CT_ITS ---
EXAMINATION: CT abdomen pelvis w con DATE: 06/12/2025 15:15 INDICATION: Postoperative abdominal pain TECHNIQUE: Computed tomography (CT) of the abdomen and pelvis was performed with 100 mL Omnipaque-350 intravenous contrast. Automated exposure control and iterative reconstruction technique were employed. The dose-length product was 209.16 mGy-cm. COMPARISON: None FINDINGS: Lung bases are clear. Heart size is normal. No pericardial or pleural effusion. Small sliding-type hiatal hernia. Small region of focal hepatic steatosis at the ligamentum teres. Gallbladder, spleen, pancreas, bilateral adrenal glands and right kidney are normal. Severe left renal atrophy but with normal parenchymal enhancement. Postoperative change of prior appendectomy with suture line at the tip of the cecum. There is wall thickening at the cecum and at the ileocecal valve. There is wall thickening of the more proximal ileum which is dilated beginning at the ileocecal valve or the ileum measures up to 4.8 cm maximal diameter which could be due to bowel obstruction or small bowel ileus. Thoracic area with fluid in the proximal colon. Small amount ascites scattered throughout the abdomen and pelvis likely related to reported recent surgery. No abscess or free intraperitoneal gas. Bladder is normal. T-shaped IUD in expected position within the anteverted uterus. Bilateral adnexa are unremarkable. Several mildly enlarged lymph nodes along the ileocolic chain, the largest measuring up to 1.3 similar in maximal short axis diameter which are most likely reactive. Bones are unremarkable. IMPRESSION: 1. Persistent dilation of the ileum extending to the ileocecal valve where there is wall thickening both of the terminal ileum as well as of the ileocecal valve and cecum which likely represents residual inflammation and secondary ileus related to earlier acute appendicitis and subsequent appendectomy. 2. Small amount of likely reactive or residual postoperative ascites in the abdomen and pelvis without abscess or free intraperitoneal gas. 3. Severe left renal atrophy. Reviewed, dictated and finalized at location A. IMPRESSION: 1. Persistent dilation of the ileum extending to the ileocecal valve where ther e is wall thickening both of the terminal ileum as well as of the ileocecal tal ve and cecum which likely represents residual inflammation and secondary ileus related to earlier acute appendicitis and subsequent appendectomy. 2. Small amount of likely reactive or residual postoperative ascites in the abd omen and pelvis without abscess or free intraperitoneal gas. 3. Severe left renal atrophy.
--- NOTE | ~2025-06-12 | XR_ITS ---
PROCEDURE(S): Acute abdominal series INDICATION(S): Follow-up COMPARISON(S): June 12 TECHNIQUE: 3 radiographic images was/were obtained. FINDINGS: Bowel gas: There is one dilated loop of small bowel in the right mid to central abdomen. The maximum dimension is approximately 4 cm. There are scattered bowel gas elsewhere and nonlabored dilated loops. There are air-fluid levels. Soft tissues: NG tube now has its tip in the gastric antrum. There is an IUD. Bones: Normal scoliosis. Spina bifida occulta is suspected at S1. Lung bases are clear. IMPRESSION: 1 dilated loop of small bowel as described. Reviewed, dictated and finalized at location A.
--- NOTE | ~2025-06-12 | XR_ITS ---
XR abdomen gastric tube insert INDICATION: confirm NG placement REFERENCE: NONE FINDINGS: A supine view of the abdomen is submitted.Enteric tube terminates in the stomach. No free air is identified. Osseous structures are intact. IMPRESSION: Enteric tube is in appropriate position. Reviewed, dictated and finalized at location S.
[2025-06-12 14:01] LABS: Hematocrit 36.7 % (37.0-47.0); Hemoglobin 11.5 g/dL (12.0-15.0); Mean Corpuscular HGB Conc 31.3 g/dl (32-36); Mean Corpuscular Hemoglobin 22.7 pg (26-34); Mean Corpuscular Volume 72.5 fl (80-100); Platelet Count Result 497 k/mm3 (150-375); Red Blood Count 5.06 M/mm3 (4.2-5.4); White Blood Count 20.9 K/mm3 (4.5-10.0)
[2025-06-12] MEDS: SODIUM CHLORIDE 0.9% IV 1,000 ML 999 ML IV CONT (14:08)
[2025-06-12 14:18] LABS: Alanine Aminotransferase 15 U/L (6-35); Albumin Level 4.0 g/dL (3.5-5.1); Alkaline Phosphatase 76 U/L (38-126); Anion Gap 12 mmol/L (4-12); Aspartate Amino Transferase 19 U/L (14-36); Bilirubin,Total 0.5 mg/dL (0.2-1.3); Blood Urea Nitrogen 11 mg/dL (7-17); Calcium 9.0 mg/dL (8.4-10.2); Carbon Dioxide 20 mmol/L (22-30); Chloride 105 mmol/L (98-107); Estimated CRCL calculation 83 ml/min; Estimated Glomerular Filt Rate > 60; Glucose 127 mg/dL (65-110); Lipase 34 U/L (23-300); Potassium 3.8 mmol/L (3.4-5.0); Sodium 137 mmol/L (137-145); Total Protein 7.6 g/dL (6.3-8.2)
--- OUTSIDE RECORDS SUMMARY | 2025-06-12 14:26 | XMS_ITS | Clinical Summary ---
Author Organization [address] Address [facility] [place] [address] Care Team Providers Care Dental Equipment Repairer Name Role Phone Francy Juarez MD Primary Care Provider [phone] Allergies Active Allergy Reactions Criticality Noted Date [...] 02/28/20 25 025 Discontinu ed(Patient Reported) ondansetron ODT (ZOFRAN-ODT) 4 mg disintegrating tabletIndications :Nausea vomiting and diarrhea Take 1 tablet (4 mg total) by mouth every 8 (eight) hours as needed for nausea or vomiting 10 tablet 05/09/20 25 025 Discontinu ed(Patient Reported) fluconazole (DIFLUCAN) 150 mg tablet Take 1 tablet (150 mg total) by mouth once for 1 dose 1 tablet 05/18/20 25 025 Active Problems Problem Noted Date Diagnosed Date IUD (intrauterine device) in place 03/20/2025 Acute otitis externa 06/27/2013 Overview (05/09/2025): OV-06/27/13; OV-03/21/14; Cerumen impaction 06/27/2013 Overview (05/09/2025): OV-06/27/13 - Right; Encounters Date Type Department Care Team Description 05/29/2025 3:00 PM CDT Office Visit [facility] at [address] [phone] Francy Juarez MD Abdominal pain of multiple sites (Primary Dx); Indigestion 05/28/2025 3:45 PM CDT Office Visit [facility] at [address] [phone] Dee Arnett NP Chronic RLQ pain (Primary Dx) 05/20/2025 Telephone [facility] at [address] [phone] Yvette Khoury LPN 05/18/2025 8:10 PM CDT - 05/18/2025 11:59 PM CDT Hospital Encounter [place] [phone] Discharge Disposition: Discharge to home or self care 05/18/2025 4:15 PM CDT Office Visit [facility] at [address] [phone] Shama Hawk NP Vaginal discharge (Primary Dx) 05/09/2025 8:30 AM CDT Office Visit [facility] at [address] [phone] Az Becerra NP Nausea vomiting [...] MMR 11/24/2005 MMRV 03/25/2010 Meningococcal Conjugate (Menveo) 03/30/2022,0808/2015 Pneumococcal, Unspecified 11/24/2005,11/2004,03/12/2005,01/07 Tdap 03/15/2016 Varicella 02/16/2006 [...] CDT) Bacterial Vaginosis Not Detected Not Detected [facility] Comment:A negative result do es not preclude a possible infection. Results should be considered in conjunction with clinical presentation to determine the disease status. Iram group Not Detected Not Detected [facility] Iram glabrata/ krusei Not Detected Not Detected [facility] Trichomonas DNA Not Detected Not Detected [facility] Vaginal 05/18/2025 4:29 PM CDT 05/18/2025 8:19 PM CDT Narrative [facility] - 05/18/2025 9:19 PM CDT The CepSMATOOSid Xpert Xpress MVP test detects DNA targets [...] this test have been verified by the [facility]. Shama Hawk NP LAB MICROBIOLOGY - GENERAL ORDERABLES Final Result [facility] [id number] [address] Department [place] [address] from Last 3 Months Insurance [facility] Care Teams Dental Equipment Repairer Relationship Specialty Start Date End Date Francy Juarez MD [address] [address] PCP - General Family Medicine 05/29/25
--- OUTSIDE RECORDS SUMMARY | 2025-06-12 14:26 | XMS_ITS | Encounter Summary ---
Author Organization [facility] Address [address] [place] [address] Phone Care Team Providers Care Insurance Business Analyst Name Role Phone Provider, Unknown Primary Care Provider Unavaila ble Encounter Details Date Type Department Care Team (Late st Contact Info) Description 05/12/2025 Results Follow-Up [facility] - [address] [place] [address] Gregory Lopez MD [address] [place] [address] VAGINITIS SCREEN, MOLECULAR Social History Tobacco Use Types Packs/Day Years Used Date Smoking Tobacco: Former Smokeless Tobacco: Never Comments:smoke outside the h ome Alcohol Use Standard Drinks/Week Comments Not Asked 0 (1 standard drink = 0.6 oz pur e alcohol) PHQ-2 Answer Date Recorded Total Score - Questions 1-9 0 11/14 Comments No Sex and Gender Information Value Date Recorded Sex Assigned at Not on file 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
--- OUTSIDE RECORDS SUMMARY | 2025-06-12 14:26 | XMS_ITS | Clinical Summary ---
Author Organization [facility] Address [address] [place] [address] Phone Care Team Providers Care Valve Steamer Name Role Phone Identified, No Provider Primary [...] Description 03/20/2025 9:15 AM CDT Office Visit [facility] ENERGY DERIVATIVES TRADER [place] [employer] [facility] [address] [address] Jduy Lowry, MANAN IUD check up (Primary Dx); [...] Info) Description 03/20/2026 9:30 AM CDT Physical [facility] ENERGY DERIVATIVES TR[employer] [facility] [address] [place] [address] Judy Lowry, CNM [address] [place], [place] [id number] Health Maintenance Due Date Last Done Comments [...] to complete this topic Insurance Care Teams Valve Steamer Relationship Specialty Start Date End Date Identified, No Provider PCP - General 01/29/25
--- OUTSIDE RECORDS SUMMARY | 2025-06-12 14:26 | XMS_ITS | Clinical Summary ---
Author Organization [facility] Address [address] [place] [address] Phone Care Team Providers Care Tellers Supervisor Name Role Phone Provider, Unknown Primary Care [...] 05/12/2025 12:05 PM CDT Urgent Care [facility] Hernandez [address] [place] [place] [address] Gregory Lopez MD Vaginal discharge (Primary Dx) Discharge Disposition: Discharged to home or Selfcare 05/12/2025 Results Follow-Up [facility] Rafita Hernandez [address] [place] [address] Gregory Lopze MD VAGINITIS SCREEN, MOLECULAR 05/12/2025 Travel 03/28/2025 12:45 PM CDT Office Visit [facility] [address] [facility] [place] [address] Carmen Sharpe, FEMI, CLINIC DIRECTOR Encounter for PPD skin test reading (Primary Dx) Discharge Disposition: Discharged to home or Selfcare 03/27/2025 9:00 AM CDT [facility] [address] 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 Gender Identity Not on file Sexual Orientation [...] 05/12/2025 12:26 PM CDT Vaginal discharge POCT [facility] TB TEST Routine 03/28/2025 1:14 PM CDT Encounter for PPD skin test reading INFECTIOUS DISEASE PROCEDURE 03/26/2025 12:00 AM CDT INFECTIOUS DISEASE PROCEDURE 03/26/2025 12:00 AM CDT from Last 3 Months Results * VAGINITIS SCREEN, MOLECULAR (05/12/2025 12:37 PM CDT) TRICHOMONAS NOT DETECTED NOT DETECTED 05/12/2025 7:47 PM CDT [facility] BACTERIAL VAGINOSIS NOT DETECTED NOT DETECTED 05/12/2025 7:47 PM CDT [facility] IRAM NOT DETECTED NOT DETECTED 05/12/2025 7:47 PM CDT [facility] Comment: Iram group Not detected with the following possible Iram species: Iram albicans and/or Iram tropicalis and/or Iram parapsilosis and/or Iram dubliniensis IRAM GLABRATA NOT DETECTED NOT DETECTED 05/12/2025 7:47 PM CDT [facility] IRAM KRUSEI NOT DETECTED NOT DETECTED 05/12/2025 7:47 PM CDT [facility] Other VAGINAL STRUCTURE / Unknown Non-Phlebotomy Collection / Unknown 05/12/2025 12:37 PM CDT 05/12/2025 12:37 PM CDT us Gregory Lopez MD MICROBIOLOGY - GENERAL ORDERABL ES Final Result [facility] [address] [place] [address], * POCT URINE HCG () (05/12/2025 12:26 PM CDT) POC URINE Negative POC URINE CONTROL Call Center Agent Pass Urine 05/12/2025 12:2 6 PM CDT Gregory Lopez MD POINT OF CARE TESTING (MANUAL) Final Result * POCT [facility] TB TEST (03/28/2025 1:14 PM CDT) [...] SCAN from Last 3 Months Insurance [place]ICAID [place] Care Teams Tellers Supervisor Relationship Specialty Start Date End Date Provider, Unknown UNKNOWN PCP - General 10/05/24
[2025-06-12 14:36] LABS: BEDSIDEPREGUCG Negative (Negative)
[2025-06-12] MEDS: KETOROLAC 30 MG/ML VIAL (*BKC) IV PUSH (14:37)
[2025-06-12 14:43] LABS: Band Neutrophils Percent 2 % (0-6); Lymphocytes Absolute Manual 0.41 K/mm3 (1.1-4.5); Lymphocytes Percent Manual 2.0 % (18-44); Monocytes Absolute Manual 0.62 K/mm3 (0.1-0.90); Monocytes Percent Manual 3 % (3-9); Neutrophils Absolute Manual 19.85 K/mm3 (1.3-6.7); Neutrophils Percent Manual 93 % (46-73); Total Cells Counted 100
[2025-06-12 14:44] LABS: Microcytosis 1+ (NORMAL); Schistocytes None Seen
[2025-06-12 14:45] LABS: Anisocytosis 2+
[2025-06-12 14:48] LABS: Add Urine Microscopic? YES; Appearance Urine Cloudy (Clear); Glucose Urine UA Negative (Negative); Leukocyte Esterase Ur 1+ LEU/UL (Negative); Nitrate Urine Negative (Negative); Non Pathogenic Casts 0-2; Specific Grav Ur 1.022 (1.001-1.035)
--- NOTE | 2025-06-12 16:14 | P.HP_ITS ---
H&P: HPI History of Present Illness Date/Time: 06/12/25 16:14 Chief Complaint: Abdominal pain, nausea/vomiting Narrative: Patient is 19-year-old female with history of laparoscopic appendectomy on 06/06/2025 he returned to the ED today with complaints of abdominal pain and nausea/vomiting. Patient was discharged last Tuesday, postop day 1 after her surgery. She states that she took narcotic pain medication for 2 days after, but did not feel she needed it after this. She was doing well over the weekend and into this week aside from some diarrhea, but noted that she was started having mid abdominal pain that she describes as ?burning? last night. When she awoke this morning, she started having nausea and vomiting. She is not able to recall how many episodes. States that she tried to eat a few grapes and some crackers this morning and was unable to keep them down. She ultimately decided to present to the ED. Upon arrival, patient appears to be tachycardic, unchanged from her previous admission last week. Slightly hypertensive, but no other abnormalities. Afebrile. Labs were drawn and demonstrated a white blood cell count of 20.9. A CT was obtained and demonstrated persistent dilation of the ileum extending into the ileocecal valve. Wall thickening of both the terminal ileum and the ileocecal valve and cecum, likely representing residual inflammation and secondary ileus. Small amount of residual postoperative ascites in the abdomen and pelvis, likely reactive. No abscess or free air. Of note, severe atrophic left kidney noted. This was also present on CT scan from last week. Upon interview with patient, she endorses abdominal pain, but no more vomiting. States last bowel movement was this morning and was loose. Last ate a full meal last night. [facility] Family History Family History Grandparent Cancer Hypertension Social History Social History Smoking status: Never smoker Alcohol intake: never Substance use: never Lack of Transportation: No Lack of Food: Never True Current Housing: I Have Housing Concerned About Future Housing: No Difficulty Paying Gas/Electric Bills: No Difficulty Paying for Meds: No Currently Unemployed: No Education: High School Diploma/GED Difficulty w/ Childcare or Family Care: No Spiritual care concerns: No Meds Home Medications and Allergies Home Medications ?Medication ?Instructions ?Recorded ?Confirmed ?Type famotidine 20 mg tablet 20 mg PO Q12H PRN indigestio n 06/06/25 06/06/25 History hydrocodone 5 mg-acetaminophen 325 1 tablet PO Q4H PRN pain #12 tabs 06/07/25 Rx mg tablet Allergies Allergy/AdvReac Type Severity Reaction Status Date / Time cefdinir (From [employer]) Allergy Intermediate Hives Verified 06/12/25 13:09 Vital Signs Vital Signs - 24 hr 06/12/25 13:09 06/12/25 13:23 Temperature 97.7 F 97.6 F Pulse Rate 149 H 127 H Respiratory Rate 18 15 Blood Pressure 129/97 H 137/98 H Pulse Oximetry 100 99 Oxygen Delivery Room Air Exam Const: General: comfortable and no acute distress Eyes: General: appearance normal, both eyes and all related structures Resp: Effort & Inspection: normal respiratory effort Cardio: Rate: tachycardic GI: Inspection: non-distended GI Palp: Yes Soft to palpation, Yes Tenderness to palpation present (GI) (Periumbilical) and No Guarding due to palpation present (GI) Auscultation: normal bowel sounds Other: Incisions are clean and dry with no signs of infection. No drainage. No surrounding redness. Skin: General skin exam: normal color and no rashes or lesions noted Neuro: Speech: normal speech Extrem: General: normal to inspection Psych: Mental Status: mental status grossly normal H&P: Results Labs Labs: Short CBC 06/12/25 Range/Units 13:56 WBC 20.9 H (4.5-10.0) K/mm3 Hgb 11.5 L D (12.0-15.0) g/dL Hct 36.7 L (37.0-47.0) % Plt Count 497 H (150-375) k/mm3 BMP 06/12/25 13:56 Sodium 137 Potassium 3.8 Chloride 105 Carbon Dioxide 20 L BUN 11 Creatinine 0.70 Glucose 127 H Calcium 9.0 Liver Function 06/12/25 Range/Units 13:56 Total Bilirubin 0.5 (0.2-1.3) mg/dL AST 19 (14-36) U/L ALT 15 (6-35) U/L Alkaline Phosphatase 76 (38-126) U/L Albumin 4.0 (3.5-5.1) g/dL Urine 06/12/25 Range/Units 14:34 Urine Color Yellow (Yellow) Urine Appearance Cloudy H (Clear) Urine pH 6.5 (5.0-9.0) Ur Specific [place] 1.022 (1.001-1.035) Urine Protein 1+ H (Negative) mg/dL Urine Glucose (UA) Negative (Negative) mg/dL Assessment and Plan Assessment and plan (1) Ileus: Code(s): K56.7 - Ileus, unspecified Status: Acute Assessment and Plan: Patient presented to the ED today with complaints of mid-abdominal pain since last night and nausea and vomiting since this morning. She is 6 days s/p laparoscopic appendectomy. Tolerated the procedure well, although appendix was found to be moderately indurated and inflamed. No issues upon discharge from the hospital until pain started last night. Labs reveal WBC of 20,000. CT demonstrating dilation of the ileum with wall thickening of the terminal ileum, ileocecal valve, and cecum likely representing residual inflammation and secondary ileus. Physical exam revealed all incision sites to be clean and dry with no signs of infection. Tenderness to periumbilical region. * Will place NG tube and set to low intermittent suction. Patient should remain NPO. * Start IV Zosyn and continuous IV fluids. * SCDs for DVT ppx and Pepcid for GI ppx. (2) History of appendectomy: Code(s): Z90.49 - Acquired absence of other specified parts of digestive tract Status: Acute Assessment and Plan: See above. Plan Discussed patient's case and plan of care with Dr. Canseco.
--- OUTSIDE RECORDS SUMMARY | 2025-06-12 16:14 | XMS_ITS | Clinical Summary ---
Author Organization [facility] Address [address] [place] [address] Phone Care Team Providers Care Telecommunications Network Planner Name Role Phone Identified, No Provider Primary [...] Description 03/20/2025 9:15 AM CDT Office Visit [facility] MANAGER EXCHANGE [place] [facility] [address] [address] Judy Lowry, MANAN IUD check up (Primary [...] Info) Description 03/20/2026 9:30 AM CDT Physical [facility] MANAGER EXCH[employer] [place] [facility] [address] [place] [address] Judy Lowry, CNM [address] [place], [place] [id number] Health Maintenance Due Date Last Done Comments [...] to complete this topic Insurance Care Teams Telecommunications Network Planner Relationship Specialty Start Date End Date Identified, No Provider PCP - General 01/29/25
--- OUTSIDE RECORDS SUMMARY | 2025-06-12 16:14 | XMS_ITS | Clinical Summary ---
Author Organization [facility] Address [address] [place] [address] Phone Care Team Providers Care Window Trimmer Apprentice Name Role Phone Provider, Unknown Primary Care [...] 05/12/2025 12:05 PM CDT Urgent [facility] Rafita Hernandez [address] [place] [address] Gregory Lopez MD Vaginal discharge (Primary Dx) Discharge Disposition: Discharged to home or Selfcare 05/12/2025 Results Follow-Up [facility] Rafita Hernandez [address] [place] [address] Gregory Lopez MD VAGINITIS SCREEN, MOLECULAR 05/12/2025 Travel 03/28/2025 12:45 PM CDT Office Visit [facility] [address] [facility] [place] [address] Carmen Sharpe, FEMI, GUTTER MOUTH CUTTER Encounter for PPD skin test reading (Primary Dx) Discharge Disposition: Discharged to home or Selfcare 03/27/2025 9:00 AM CDT [facility] [address] [place] [address] Brittney Gan, SECURITY SYSTEM ENGINEER, GUTTER MOUTH CUTTER Pre-school health examination (Primary Dx) Discharge Disposition: Discharged to home or Selfcare 03/26/2025 11:30 AM CDT [facility] [address] [place] [address] Geena Buitrago, SECURITY SYSTEM ENGINEER, GUTTER MOUTH CUTTER Encounter for PPD test (Primary Dx) Discharge [...] on file 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 Gender Identity Not on file Sexual Orientation [...] 05/12/2025 12:26 PM CDT Vaginal discharge POCT [facility] TB TEST Routine 03/28/2025 1:14 PM CDT Encounter for PPD skin test reading INFECTIOUS DISEASE PROCEDURE 03/26/2025 12:00 AM CDT INFECTIOUS DISEASE PROCEDURE 03/26/2025 12:00 AM CDT from Last 3 Months Results * VAGINITIS SCREEN, MOLECULAR (05/12/2025 12:37 PM CDT) TRICHOMONAS NOT DETECTED NOT DETECTED 05/12/2025 7:47 PM CDT [facility] BACTERIAL VAGINOSIS NOT DETECTED NOT DETECTED 05/12/2025 7:47 PM CDT [facility] IRAM NOT DETECTED NOT DETECTED 05/12/2025 7:47 PM CDT [facility] Comment: Iram group Not detected with the following possible Iram species: Iram albicans and/or Iram tropicalis and/or Iram parapsilosis and/or Iram dubliniensis IRAM GLABRATA NOT DETECTED NOT DETECTED 05/12/2025 7:47 PM CDT [facility] IRAM KRUSEI NOT DETECTED NOT DETECTED 05/12/2025 7:47 PM CDT [facility] Other VAGINAL STRUCTURE / Unknown Non-Phlebotomy Collection / Unknown 05/12/2025 12:37 PM CDT 05/12/2025 12:37 PM CDT us Gregory Lopez MD MICROBIOLOGY - GENERAL ORDERABL ES Final Result [facility] [address] [place] [address], * POCT URINE HCG () (05/12/2025 12:26 PM CDT) POC URINE Negative POC URINE CONTROL Data Analysis Intern Pass Urine 05/12/2025 12:2 6 PM CDT Gregory Lopez MD POINT OF CARE TESTING (MANUAL) Final Result * POCT [facility] TB TEST (03/28/2025 1:14 PM CDT) [...] SCAN from Last 3 Months Insurance MEDICAID [place] Care Teams Window Trimmer Apprentice Relationship Specialty Start Date End Date Provider, Unknown UNKNOWN PCP - General 10/05/24
--- OUTSIDE RECORDS SUMMARY | 2025-06-12 16:14 | XMS_ITS | Encounter Summary ---
Author Organization [facility] Address [address] 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
--- OUTSIDE RECORDS SUMMARY | 2025-06-12 16:14 | XMS_ITS | Clinical Summary ---
Author Organization [address] Address [facility] [place] [address] Care Team Providers Care Debeaker Name Role Phone Francy Juarez MD Primary Care Provider [phone] Allergies Active Allergy Reactions Criticality Noted Date [...] Description 05/29/2025 3:00 PM CDT Office Visit [facility] at [address] [id number] Francy Juarez MD Abdominal pain of multiple sites (Primary Dx); Indigestion 05/28/2025 3:45 PM CDT Office Visit [facility] at [address] [address] Dee Arnett NP Chronic RLQ pain (Primary Dx) 05/20/2025 Telephone [facility] [address] [address] Yvette Khoury LPN 05/18/2025 8:10 PM CDT - 05/18/2025 11:59 PM CDT Hospital Encounter [place] [id number] Discharge Disposition: Discharge to home or self care 05/18/2025 4:15 PM CDT Office Visit [facility] at [address] [address] Shama Hawk NP Vaginal discharge (Primary Dx) 05/09/2025 8:30 AM CDT Office Visit [facility] at [address] [address] Az Becerra NP Nausea vomiting [...] clinical presentation to determine the disease status. Iarm group Not Detected Not Detected [facility] Iram glabrata/ krusei Not Detected Not Detected [facility] Trichomonas DNA Not Detected Not Detected [facility] Vaginal 05/18/2025 4:29 PM CDT 05/18/2025 8:19 PM CDT Narrative [facility] - 05/18/2025 9:19 PM CDT The CepKnokid Xpert Xpress MVP test detects DNA targets [...] this test have been verified by the [facility]. Shama Hawk NP LAB MICROBIOLOGY - GENERAL ORDERABLES Final Result [facility] [address] [place] [address] from Last 3 Months Insurance [facility] Care Teams Debeaker Relationship Specialty Start Date End Date Francy Juarez MD [address] [address] PCP - General Family Medicine 05/29/25
--- NOTE | 2025-06-12 16:26 | ED_ITS ---
HPI - Abdominal Pain General Chief Complaint: Abdominal Pain Stated Complaint: post op pain, appy last Time Seen by Provider: 06/12/25 13:33 Source: patient Mode of arrival: ambulatory Limitations: no limitations History of Present Illness HPI narrative: 19-year-old status post appendectomy a week ago presents to the ER with a complains of a diffuse abdominal pain associated with mild nausea and vomiting. She has keep any fluids down. Denies any fever. Had diarrhea. MD elicited complaint: abdominal pain Pertinent past history: other (Status post appendectomy) Onset (ago): day(s) (2) Pain Consistency: constant Location: diffuse Severity: moderate Quality: cramping and burning Migration to: no migration Related Data Home Medications ?Medication ?Instructions ?Recorded ?Confirmed ?Last Taken ?Type famotidine 20 mg tablet 20 mg PO Q12H PRN indigestio n 06/06/25 06/06/25 Unknown History Allergies Allergy/AdvReac Type Severity Reaction Status Date / Time cefdinir (From O[employer]) Allergy Intermediate Hives Verified 06/12/25 13:09 Review of Systems 2 Review of Systems: All systems reviewed & are unremarkable except as noted in HPI and below Constitutional: Constitutional: Reports no additional constitutional complaints Eyes: Eyes: Reports no additional eye complaints ENT: Reports system reviewed and no additional complaints, except as documented Cardiovascular: Cardiovascular: Reports no additional cardiovascular complaints Respiratory: Respiratory: Reports no additional respiratory complaints Gastrointestinal: Gastrointestinal: Reports as per HPI Musculoskeletal: Musculoskeletal: Reports no additional musculoskeletal complaints PMFSH Family History Family History Grandparent Cancer Hypertension Social History Social History Smoking status: Never smoker Alcohol intake: never Substance use: never Lack of Transportation: No Lack of Food: Never True Current Housing: I Have Housing Concerned About Future Housing: No Difficulty Paying Gas/Electric Bills: No Difficulty Paying for Meds: No Currently Unemployed: No Education: High School Diploma/GED Difficulty w/ Childcare or Family Care: No Spiritual care concerns: No Exam 2 Narrative: GENERAL: Well-appearing, well-nourished, and in no acute distress. HEAD: Normocephalic, atraumatic. EYES: PERRLA and EOMI. ENT: Nares clear, no rhinorrhea or epistaxis. Mucous membranes moist. NECK: Supple. CHEST: Clear to auscultation. No respiratory distress. HEART: Regular rate and rhythm. No murmur heard. Normal peripheral pulses. ABDOMEN: Soft, mild tenderness , nondistended, normal active bowel sounds. EXTREMITIES: Normal range of motion. No edema. SKIN: Warm, dry, no rash. NEURO: No focal deficits. Alert and oriented x3. PSYCH: Normal mood and affect. Course Course Emergency Course: Pain has much improved after IV pain medication informed her about the lab work, CT findings. Agreeable with admission. Vital Signs Vital signs: Vital Signs Temperature 36.5 C 06/12/25 13:09 Pulse Rate 149 H 06/12/25 13:09 Respiratory Rate 18 06/12/25 13:09 Blood Pressure 129/97 H 06/12/25 13:09 Pulse Oximetry 100 06/12/25 13:09 Temperature 36.4 C 06/12/25 13:23 Pulse Rate 127 H 06/12/25 13:23 Respiratory Rate 15 06/12/25 13:23 Blood Pressure 137/98 H 06/12/25 13:23 Pulse Oximetry 99 06/12/25 13:23 Oxygen Delivery Room Air 06/12/25 13:23 MDM - Abdominal Pain Differential Diagnosis Differential diagnosis: Likely abdominal pain and other (Postop pain, colitis , post op infection) Medical Records Attestation: I reviewed the patient's medical records. Lab Data Attestation: I reviewed the patient's lab results. 06/12/25 13:56 06/12/25 13:56 Labs: Lab Results 06/12/25 06/12/25 06/12/25 Range/Units 13:56 14:34 14:35 WBC 20.9 H (4.5-10.0) K/mm3 RBC 5.06 (4.2-5.4) M/mm3 Hgb 11.5 L D (12.0-15.0) g/dL Hct 36.7 L (37.0-47.0) % MCV 72.5 L (80-100) fl MCH 22.7 L (26-34) pg MCHC 31.3 L (32-36) g/dl RDW 16.6 H (11.5-14.5) % Plt Count 497 H (150-375) k/mm3 MPV 8.8 (7.4-10.4) fl Immature Gran % (Auto) Not Reportable Neut % (Auto) Not Reportable Lymph % (Auto) Not Reportable [place] % (Auto) Not Reportable Eos % (Auto) Not Reportable Baso % (Auto) Not Reportable Lymph # (Auto) Not Reportable [place] # (Auto) Not Reportable Eos # (Auto) Not Reportable Baso # (Auto) Not Reportable Abs Immat Gran (auto) Not Reportable Absolute Neuts (auto) Not Reportable Absolute Nucleated RBC Not Reportable Total Counted 100 Neutrophils % (Manual) 93 H (46-73) % Band Neutrophils % 2 (0-6) % Lymphocytes % (Manual) 2.0 L (18-44) % Monocytes % (Manual) 3 (3-9) % Nucleated RBC % Not Reportable Abs Neuts (Manual) 19.85 H (1.3-6.7) K/mm3 Abs Lymphs (Manual) 0.41 L (1.1-4.5) K/mm3 Abs Monocytes (Manual) 0.62 (0.1-0.90) K/mm3 Platelet Estimate Increased (Adequate) Anisocytosis 2+ Microcytosis 1+ (NORMAL) Schistocytes None seen Sodium 137 (137-145) mmol/L Potassium 3.8 (3.4-5.0) mmol/L Chloride 105 (98-107) mmol/L Carbon Dioxide 20 L (22-30) mmol/L Anion Gap 12 (4-12) mmol/L BUN 11 (7-17) mg/dL Creatinine 0.70 (0.7-1.0) mg/dL Estim Creat Clear Calc 83 ml/min Estimated GFR > 60 (59 - ) Glucose 127 H (65-110) mg/dL Lactic Acid 1.2 (0.7-2.0) mmol/L Calcium 9.0 (8.4-10.2) mg/dL Total Bilirubin 0.5 (0.2-1.3) mg/dL AST 19 (14-36) U/L ALT 15 (6-35) U/L Alkaline Phosphatase 76 (38-126) U/L Total Protein 7.6 (6.3-8.2) g/dL Albumin 4.0 (3.5-5.1) g/dL Lipase 34 (23-300) U/L Urine Color Yellow (Yellow) Urine Appearance Cloudy H (Clear) Urine pH 6.5 (5.0-9.0) Ur Specific [place] 1.022 (1.001-1.035) Urine Protein 1+ H (Negative) mg/dL Urine Glucose (UA) Negative (Negative) mg/dL Urine Ketones 4+ H (Negative) mg/dL Ur Blood (Man) Trace (Negative) Urine Nitrate Negative (Negative) Urine Bilirubin Negative (Negative) Urine Urobilinogen 1.0 (<2.0) mg/dL Leukocyte Esterase Rfl 1+ H (Negative) APARNA/UL Urine RBC 3-5 H (0-2) /hpf Urine WBC 6-10 H (0-3) /hpf Ur Squamous Epith Cells Many H (Few) /hpf Urine Bacteria 4+ H /hpf Urine Casts 0-2 POC Urine HCG, Qual Negative (Negative) Imaging Data Radiologist's impression: ITS Impressions Abdomen/Pelvis CT 06/12/25 15:26 IMPRESSION: 1. Persistent dilation of the ileum extending to the ileocecal valve where there is wall thickening both of the terminal ileum as well as of the ileocecal valve and cecum which likely represents residual inflammation and secondary ileus related to earlier acute appendicitis and subsequent appendectomy. 2. Small amount of likely reactive or residual postoperative ascites in the abdomen and pelvis without abscess or free intraperitoneal gas. 3. Severe left renal atrophy. Discharge Plan Discharge Clinical Impression: Abdominal pain Qualifiers: Abdominal location: multiple sites Qualified Code(s): R10.85 - Abdominal pain of multiple sites Patient Disposition: Still a Patient Condition: Stable Instructions: Antibiotic Form Patient Language: Mongolian Prescriptions: No Action famotidine 20 mg tablet 20 mg PO Q12H PRN (Reason: indigestion) hydrocodone-acetaminophen 5-325 mg tablet 1 tablet PO Q4H PRN (Reason: pain) Qty: 12 0RF Follow-up/Referrals: UNKNOWN,DOCTOR [Primary Care Provider] Time of Disposition: 16:29
[2025-06-12] MEDS: FAMOTIDINE 20 MG/2 ML VIAL IV PUSH (17:13)
[2025-06-12] MEDS: MAG HYDROX/AL HYDROX/SIMETH 30 ML UDC FEED TUBE ×2 (17:13→23:37)
[2025-06-12] MEDS: PIPERACILLIN/TAZOBACTAM SOD 3.375 GM in SODIUM CHLORIDE 0.9% IV 50 ML 100 ML IVPB ×2 (17:13→23:37)
[2025-06-12] MEDS: ONDANSETRON INJ 4 MG/2 ML VIAL IV PUSH (18:44)
[2025-06-12] MEDS: LACTATED RINGERS 1,000 ML 100 ML IV CONT (18:48)
--- NOTE | 2025-06-12 18:55 | ADMGEN ---
This patient, Francy Clifford, was admitted to [facility] Surg Room 301-01. Patient/family oriented to hospital policies and general routines including ID bracelet, bed and alarms, visiting hours, pain management, procedures, bathroom and other care routines, personal items, smoking policy, room service/diet, and visiting hours. Report from Saranya in the ED. Information on how to activate the Rapid Response Team has been discussed. Patient/Family are encouraged to report perceived risks to care and to ask questions if they do not understand what they are told or what they should do.
[2025-06-12] MEDS: MORPHINE SULFATE (*CRX) 4 MG/ML INJ 2 MG IV PUSH (23:44)
[2025-06-13] MEDS: PIPERACILLIN/TAZOBACTAM SOD 3.375 GM in SODIUM CHLORIDE 0.9% IV 50 ML 100 ML IVPB ×4 (05:48→23:46)
[2025-06-13] MEDS: LACTATED RINGERS 1,000 ML 100 ML IV CONT ×2 (05:48→18:30)
[2025-06-13 05:49] LABS: Hematocrit 28.1 % (37.0-47.0); Hemoglobin 8.6 g/dL (12.0-15.0); Immature Granulocyte Percent A 0.5 % (0-0.5); Lymphocytes Absolute Auto 1.33 K/mm3 (0.9-3.2); Mean Corpuscular HGB Conc 30.6 g/dl (32-36); Mean Corpuscular Hemoglobin 22.8 pg (26-34); Mean Corpuscular Volume 74.3 fl (80-100); Nucleated Red Blood Cells Absolute Auto 0.000 K/mm3 (0.0-0.012); Nucleated Red Blood Cells Perc 0.0 % (0.0-0.2); Platelet Count Result 392 k/mm3 (150-375); Red Blood Count 3.78 M/mm3 (4.2-5.4); White Blood Count 11.3 K/mm3 (4.5-10.0)
[2025-06-13 06:00] VITALS: BP 118/72; PULSE 110; RESP 16; TEMP 36.8; O2SAT 100
[2025-06-13 06:20] LABS: Giant Platelets Present; Hypochromasia 1+; Microcytosis 1+ (NORMAL); Ovalocytes 1+
[2025-06-13 06:21] LABS: Schistocytes None Seen
[2025-06-13 06:24] LABS: Blood Urea Nitrogen 12 mg/dL (7-17); Calcium 8.4 mg/dL (8.4-10.2); Carbon Dioxide 21 mmol/L (22-30); Chloride 109 mmol/L (98-107); Estimated CRCL calculation 77 ml/min; Estimated Glomerular Filt Rate > 60; Glucose 72 mg/dL (65-110); Potassium 3.5 mmol/L (3.4-5.0)
[2025-06-13 06:43] LABS: Anion Gap 7 mmol/L (4-12); Sodium 137 mmol/L (137-145)
[2025-06-13] MEDS: PANTOPRAZOLE SODIUM IV 40 MG VIAL IV PUSH (08:21)
[2025-06-13] MEDS: ENOXAPARIN 40 MG/0.4 ML SYRINGE SUB-Q (08:21)
[2025-06-13] MEDS: MAG HYDROX/AL HYDROX/SIMETH 30 ML UDC FEED TUBE ×2 (08:21→23:45)
--- NOTE | 2025-06-13 09:09 | P.PN_ITS ---
Progress Note: A&P Assessment and Plan (1) History of appendectomy: Code(s): Z90.49 - Acquired absence of other specified parts of digestive tract Status: Acute Assessment and Plan: Patient is 1 week status post laparoscopic appendectomy. Her incisions appear to be healing well. CT scan from the ER yesterday showed no evidence of residual abdominal or pelvic abscess. Some normal postsurgical changes were noted and some residual thickening of the cecum is also noted without further appearance of generalized colitis. The patient actually did well at home for a few days after his appendectomy and then over the past 48hours started having worsening abdominal pain and nausea and emesis and abdominal distension. Difficult to really tell whether her symptoms are a recurrent ileus from her initial appendectomy or a new problem such as gastroenteritis or other source such as UTI. Her urinalysis shows 4+ bacteria but many squamous cell so is not a great specimen. She is on Zosyn and if does have UTI it should cover it. (2) Ileus: Code(s): K56.7 - Ileus, unspecified Status: Acute Assessment and Plan: Small-bowel ileus is clinically improving. NG tube in place decompressing the GI tract. Output is decreasing and she is passing small amount of liquid bowel movement today. We will get a stool sample for C diff if she has more diarrhea. Continue NG tube to suction this morning. This afternoon we may clamp the NG tube and see how she does and hopefully if she can progress remove the NG tube tomorrow and start her on diet. Will start her on some Reglan and continue Protonix for GI prophylaxis. Encouraged her to get up and walk in the hallways with the NG tube clamp to walk in the hallways. Up out of bed and sit in chair as much as possible as well. (3) Abdominal pain: Qualifiers: Abdominal location: multiple sites Qualified Code(s): R10.85 - Abdominal pain of multiple sites Code(s): R10.9 - Unspecified abdominal pain Status: Acute Assessment and Plan: Improved nasogastric tube decompression and supportive care. No acute surgical abdomen. Subjective Date/time seen: 06/13/25 09:09 Interval history: Patient feels better today. No nausea today. Biggest complaint is sore throat from the NG tube. No flatus but passed small with bowel movement today. Nonbloody. NG output is not particularly bilious. White blood count is decreased to 11,000. Electrolytes are good. No fever tachycardia. Exam GI: Other: Abdomen is soft and minimally distended. Minimal diffuse tenderness. Laparoscopic appendectomy incisions are all healing well without the redness or drainage. Objective Data Vital Signs Vital Signs: Vital Signs - 24 hr 06/12/25 13:09 06/12/25 13:23 06/12/25 14:15 Temperature 36.5 C 36.4 C Pulse Rate 149 H 127 H 112 H Respiratory Rate 18 15 14 Blood Pressure 129/97 H 137/98 H 112/79 Pulse Oximetry 100 99 100 Oxygen Delivery Room Air 06/12/25 15:21 06/12/25 15:30 06/12/25 16:15 Temperature Pulse Rate 110 H 100 102 H Respiratory Rate 17 20 14 Blood Pressure 130/78 124/81 Pulse Oximetry 100 100 100 Oxygen Delivery 06/12/25 17:30 06/12/25 18:11 06/12/25 20:00 Temperature Pulse Rate 103 H 87 98 Respiratory Rate 18 19 16 Blood Pressure 113/85 156/97 H Pulse Oximetry 100 100 99 Oxygen Delivery Room Air 06/12/25 22:00 06/13/25 06:00 Temperature 36.6 C 36.8 C Pulse Rate 98 110 H Respiratory Rate 16 16 Blood Pressure 129/80 118/72 Pulse Oximetry 99 100 Oxygen Delivery Intake/Output Intake/Output: Intake & Output 06/10/25 06/11/25 06/12/25 06/13/25 23:59 23:59 23:59 23:59 Intake Total 1050 1050 Balance 1050 1050 Meds/Results Medications: Active Medications Generic Name Dose Route Start Last Admin Trade Name Freq PRN Reason Stop Dose Admin Al Hydrox/Mg Hydrox/Simethicone 30 ml 06/12/25 16:30 06/13/25 08:21 Mag Hydrox/Al Hydrox/Simeth 30 Ml Udc FEED TUBE 30 ml Q8H JAZMYN Administration Enoxaparin Sodium 40 mg 06/13/25 09:00 06/13/25 08:21 Enoxaparin 40 Mg/0.4 Ml Syringe SUB-Q 40 mg DAILY JAZMYN Administration Lactated Ringer's 1,000 mls @ 100 mls/hr 06/12/25 16:30 06/13/25 05:48 Lr - Lactated Ringers Iv IV CONT 100 mls/hr .Q10H JAZMYN Administration Piperacillin Sod/Tazobactam 50 mls @ 100 mls/hr 06/12/25 17:00 06/13/25 05:48 Sod 3.375 gm/ Sodium Chloride IVPB 100 mls/hr Q6HR JAZMYN Administration Morphine Sulfate 2 mg 06/12/25 16:27 06/12/25 23:44 Morphine Sulfate (*Crx) 4 Mg/Ml Inj IV PUSH 2 mg Q4H PRN Administration Pain Rated 7-10 Ondansetron HCl 4 mg 06/12/25 16:27 06/12/25 18:44 Ondansetron Inj 4 Mg/2 Ml Vial IV PUSH 4 mg Q6H PRN Administration Nausea And Vomiting Pantoprazole Sodium 40 mg 06/13/25 09:00 06/13/25 08:21 Pantoprazole Sodium Iv 40 Mg Vial IV PUSH 40 mg QAM JAZMYN Administration Radiology Results: ITS Impressions Abdomen/Pelvis CT 06/12/25 15:26 IMPRESSION: 1. Persistent dilation of the ileum extending to the ileocecal valve where there is wall thickening both of the terminal ileum as well as of the ileocecal valve and cecum which likely represents residual inflammation and secondary ileus related to earlier acute appendicitis and subsequent appendectomy. 2. Small amount of likely reactive or residual postoperative ascites in the abdomen and pelvis without abscess or free intraperitoneal gas. 3. Severe left renal atrophy. Abdomen X-Ray 06/12/25 19:17 IMPRESSION: Enteric tube is in appropriate position. Labs Labs: Laboratory Results - last 24 hr 06/12/25 06/12/25 06/12/25 13:56 14:34 14:35 WBC 20.9 H RBC 5.06 Hgb 11.5 L D Hct 36.7 L MCV 72.5 L MCH 22.7 L MCHC 31.3 L RDW 16.6 H Plt Count 497 H MPV 8.8 Immature Gran % (Auto) Not Reportable Neut % (Auto) Not Reportable Lymph % (Auto) Not Reportable [place] % (Auto) Not Reportable Eos % (Auto) Not Reportable Baso % (Auto) Not Reportable Lymph # (Auto) Not Reportable [place] # (Auto) Not Reportable Eos # (Auto) Not Reportable Baso # (Auto) Not Reportable Abs Immat Gran (auto) Not Reportable Absolute Neuts (auto) Not Reportable Absolute Nucleated RBC Not Reportable Total Counted 100 Neutrophils % (Manual) 93 H Band Neutrophils % 2 Lymphocytes % (Manual) 2.0 L Monocytes % (Manual) 3 Nucleated RBC % Not Reportable Abs Neuts (Manual) 19.85 H Abs Lymphs (Manual) 0.41 L Abs Monocytes (Manual) 0.62 Platelet Estimate Increased Large Platelets Giant Platelets Hypochromasia Anisocytosis 2+ Microcytosis 1+ Ovalocytes Schistocytes None seen Sodium 137 Potassium 3.8 Chloride 105 Carbon Dioxide 20 L Anion Gap 12 BUN 11 Creatinine 0.70 Estim Creat Clear Calc 83 Estimated GFR > 60 Glucose 127 H Lactic Acid 1.2 Calcium 9.0 Total Bilirubin 0.5 AST 19 ALT 15 Alkaline Phosphatase 76 Total Protein 7.6 Albumin 4.0 Lipase 34 Urine Color Yellow Urine Appearance Cloudy H Urine pH 6.5 Ur Specific [place] 1.022 Urine Protein 1+ H Urine Glucose (UA) Negative Urine Ketones 4+ H Ur Blood (Man) Trace Urine Nitrate Negative Urine Bilirubin Negative Urine Urobilinogen 1.0 Leukocyte Esterase Rfl 1+ H Urine RBC 3-5 H Urine WBC 6-10 H Ur Squamous Epith Cells Many H Urine Bacteria 4+ H Urine Casts 0-2 POC Urine HCG, Qual Negative 06/13/25 05:09 WBC 11.3 H RBC 3.78 L Hgb 8.6 L Hct 28.1 L MCV 74.3 L MCH 22.8 L MCHC 30.6 L RDW 16.7 H Plt Count 392 H MPV 9.4 Immature Gran % (Auto) 0.5 Neut % (Auto) 78.1 H Lymph % (Auto) 11.8 L [place] % (Auto) 9.0 H Eos % (Auto) 0.2 Baso % (Auto) 0.4 Lymph # (Auto) 1.33 [place] # (Auto) 1.0 H Eos # (Auto) 0.0 Baso # (Auto) 0.0 Abs Immat Gran (auto) 0.06 H Absolute Neuts (auto) 8.8 H Absolute Nucleated RBC 0.000 Total Counted Neutrophils % (Manual) Band Neutrophils % Not Reportable Lymphocytes % (Manual) Monocytes % (Manual) Nucleated RBC % 0.0 Abs Neuts (Manual) Abs Lymphs (Manual) Abs Monocytes (Manual) Platelet Estimate Increased Large Platelets Present Giant Platelets Present Hypochromasia 1+ Anisocytosis Microcytosis 1+ Ovalocytes 1+ Schistocytes None seen Sodium 137 Potassium 3.5 Chloride 109 H Carbon Dioxide 21 L Anion Gap 7 BUN 12 Creatinine 0.76 Estim Creat Clear Calc 77 Estimated GFR > 60 Glucose 72 Lactic Acid Calcium 8.4 Total Bilirubin AST ALT Alkaline Phosphatase Total Protein Albumin Lipase Urine Color Urine Appearance Urine pH Ur Specific [place] Urine Protein Urine Glucose (UA) Urine Ketones Ur Blood (Man) Urine Nitrate Urine Bilirubin Urine Urobilinogen Leukocyte Esterase Rfl Urine RBC Urine WBC Ur Squamous Epith Cells Urine Bacteria Urine Casts POC Urine HCG, Qual
--- NOTE | 2025-06-13 09:31 | ECG_ITS ---
Test Date: 2025-06-13 10:03:21 Measurements Intervals [place] Rate: 106 P: 48 [place]: 145 QRS: 41 QRSD: 85 T: -16 QT: 313 QTc: 416 Interpretive Statements SINUS TACHYCARDIA CONSIDER INFERIOR INFARCT, AGE INDETERMINATE MODERATE T-WAVE ABNORMALITY, CONSIDER ANTERIOR ISCHEMIA ABNORMAL ECG No previous ECG available for comparison Electronically Signed On 06-13-2025 10:20:35 CDT by Kyle Thomas D.O.
[2025-06-13] MEDS: FLUCONAZOLE 200 MG/NACL 100 ML 200 MG/100 ML BAG 100 MG IVPB (10:43)
[2025-06-13] MEDS: METOCLOPRAMIDE HCL INJ 10 MG/2 ML VIAL IV PUSH ×3 (11:45→23:46)
[2025-06-13 14:00] VITALS: BP 126/82; PULSE 100; RESP 16; TEMP 36.7; O2SAT 100
[2025-06-13 19:28] VITALS: BP 120/72; PULSE 110; RESP 18; TEMP 37.7; O2SAT 99
[2025-06-13 20:00] VITALS: PULSE 110; RESP 18; O2SAT 99
[2025-06-14] VITALS: TEMP 37.4
[2025-06-14] MEDS: MORPHINE SULFATE (*CRX) 4 MG/ML INJ 2 MG IV PUSH (00:04)
[2025-06-14 03:57] VITALS: BP 112/68; PULSE 92; RESP 18; TEMP 36.4; O2SAT 98
[2025-06-14] MEDS: LACTATED RINGERS 1,000 ML 100 ML IV CONT (05:17)
[2025-06-14] MEDS: PIPERACILLIN/TAZOBACTAM SOD 3.375 GM in SODIUM CHLORIDE 0.9% IV 50 ML 100 ML IVPB ×2 (05:18→12:02)
[2025-06-14] MEDS: METOCLOPRAMIDE HCL INJ 10 MG/2 ML VIAL IV PUSH ×2 (05:18→12:03)
[2025-06-14 06:19] LABS: Hematocrit 26.3 % (37.0-47.0); Hemoglobin 7.8 g/dL (12.0-15.0); Mean Corpuscular HGB Conc 29.7 g/dl (32-36); Mean Corpuscular Hemoglobin 22.2 pg (26-34); Mean Corpuscular Volume 74.9 fl (80-100); Platelet Count Result 346 k/mm3 (150-375); Red Blood Count 3.51 M/mm3 (4.2-5.4); White Blood Count 8.1 K/mm3 (4.5-10.0)
[2025-06-14 07:43] LABS: Alanine Aminotransferase 9 U/L (6-35); Albumin Level 2.9 g/dL (3.5-5.1); Alkaline Phosphatase 58 U/L (38-126); Anion Gap 6 mmol/L (4-12); Aspartate Amino Transferase 12 U/L (14-36); Bilirubin,Total 0.5 mg/dL (0.2-1.3); Blood Urea Nitrogen 4 mg/dL (7-17); Calcium 8.5 mg/dL (8.4-10.2); Carbon Dioxide 27 mmol/L (22-30); Chloride 104 mmol/L (98-107); Estimated CRCL calculation 81 ml/min; Estimated Glomerular Filt Rate > 60; Glucose 78 mg/dL (65-110); Potassium 4.0 mmol/L (3.4-5.0); Sodium 137 mmol/L (137-145); Total Protein 5.7 g/dL (6.3-8.2)
[2025-06-14] MEDS: PANTOPRAZOLE SODIUM IV 40 MG VIAL IV PUSH (08:27)
[2025-06-14] MEDS: ENOXAPARIN 40 MG/0.4 ML SYRINGE SUB-Q (08:27)
[2025-06-14] MEDS: MAG HYDROX/AL HYDROX/SIMETH 30 ML UDC PO (08:27)
[2025-06-14] MEDS: FLUCONAZOLE 150 MG TABLET PO (09:07)
[2025-06-14 12:00] LABS: Toxigenic C. Diff NEGATIVE (NEGATIVE)
--- NOTE | 2025-06-14 12:47 | P.DS_ITS ---
DS: Admitting Diagnosis Discharge Date 06/14/2025 Admitting Diagnosis abdominal pain, nausea/vomiting DS: Discharge Diagnosis Discharge Diagnosis (1) Ileus: Code(s): K56.7 - Ileus, unspecified Status: Acute (2) Abdominal pain: Qualifiers: Abdominal location: multiple sites Qualified Code(s): R10.85 - Abdominal pain of multiple sites Code(s): R10.9 - Unspecified abdominal pain Status: Acute (3) History of appendectomy: Code(s): Z90.49 - Acquired absence of other specified parts of digestive tract Status: Acute Assessment and Plan: Patient had a laparoscopic appendectomy on 06/06/2025. Inflammation and reactive induration of the cecum and base of the appendix was encountered, but no perforation. Patient tolerated the procedure well and was discharged the following day. (4) Atrophic kidney: Code(s): N26.1 - Atrophy of kidney (terminal) Status: Acute Assessment and Plan: Incidental finding of severe left renal atrophy was identified via CT. Patient denies any history of this. Kidney function normal. Instructed patient to follow up with PCP. (5) Abnormal EKG: Code(s): R94.31 - Abnormal electrocardiogram [ECG] [EKG] Status: Acute Assessment and Plan: A baseline EKG was done on 06/13/2025 to rule out any QT interval lengthening as patient was on both fluconazole and ondansetron. This showed evidence of sinus tachycardia, consider inferior infarct, age indeterminate. Moderate T-wave abnormality, consider anterior ischemia. I spoke with press tender smoke signal, Dr. Thomas, on 06/13/2025 who noted that this was a borderline reading. Unlikely a true cardiac event, due to patient's age and lack of risk factors. She only noted some epigastric pain, but no true chest pain. Instructed patient to follow-up with PCP. (6) Anemia: Code(s): D64.9 - Anemia, unspecified Status: Acute Assessment and Plan: On 06/14/2025 patient's hemoglobin dropped to 7.8. Asymptomatic. Unknown etiology of anemia. She did also have a low reading of 7.9 on 06/07/2025. Instructed patient to take multivitamin containing iron and follow up with her PCP. DS: Summary Hospital Course Reason for hospitalization: Patient presented to the ED on 06/12/2025 with complaints of abdominal pain nausea/vomiting x1 day. She had a laparoscopic appendectomy performed on 06/06/25. Upon arrival to the ED, she was tachycardic but afebrile. Labs demonstrated a white blood cell count of 20.9. A CT demonstrated persistent dilation of the ileum extending into the ileocecal valve. Wall thickening of both the terminal ileum and the ileocecal valve in the cecum, likely representing residual inflammation secondary ileus. Patient was admitted for further workup. Hospital Course: Patient was admitted to the hospital and started on IV Zosyn and continuous IV fluids. SCDs for DVT prophylaxis and Pepcid for GI prophylaxis were started. An NG tube was placed and set to low intermittent suction. Patient was given IV morphine for pain. The following day, patient had a small liquid bowel movement. NG tube was clamped in the afternoon and patient did not experience any increased pain or nausea. She did mention some vaginal itching and burning. She was given a dose of fluconazole through her IV. EKG was obtained and showed some abnormalities. Discussed with press tender smoke signal. Patient noted some epigastric pain that she felt was due to NG tube. Patient tolerated clamping trial so NG tube was removed and she was started on clear liquids. WBC steadily decreased. Obstructive series abdominal x-ray was obtained on 06/13 and demonstrated 1 dilated loop of small bowel, but no mention of obstruction. Patient's hemoglobin was 11.5 upon presentation on 06/12, but dropped to 7.8 on 06/14. Denies any symptoms. Instructed to follow-up with her PCP. On 06/14, patient tolerating full liquid diet. Had multiple bowel movements. Ambulating on her own. She did note some persistent itching and burning with urination so a 2nd dose of oral fluconazole was ordered. Notes some right lower quadrant pain, but states epigastric pain was resolved. Surgically stable for discharge. Status at Discharge Functional status at discharge: independent ambulation Overall status at discharge: patient is back to baseline Time Spent with Patient Time attestation: Total time spent providing and/or coordinating discharge services: Time spent: Less than 30 minutes Exam Const: General: comfortable and no acute distress Eyes: General: appearance normal, both eyes and all related structures Neck: Neck: supple Resp: Effort & Inspection: normal respiratory effort Cardio: Rate: regular rate GI: Inspection: non-distended GI Palp: Yes Soft to palpation, Yes Tenderness to palpation present (GI) (Right lower quadrant) and Yes Guarding due to palpation present (GI) (Right lower quadrant) Auscultation: normal bowel sounds Skin: General skin exam: normal color and no rashes or lesions noted Extrem: General: normal to inspection Psych: Mental Status: mental status grossly normal DS: Data Data Completed and Pending Labs on day of discharge: Labs from last 24 hours 06/14/25 06/14/25 10:33 05:17 WBC 8.1 RBC 3.51 L Hgb 7.8 L Hct 26.3 L MCV 74.9 L MCH 22.2 L MCHC 29.7 L RDW 16.7 H Plt Count 346 MPV 9.1 Sodium 137 Potassium 4.0 Chloride 104 Carbon Dioxide 27 Anion Gap 6 BUN 4 L D Creatinine 0.72 Estim Creat Clear Calc 81 Estimated GFR > 60 Glucose 78 Calcium 8.5 Total Bilirubin 0.5 AST 12 L ALT 9 Alkaline Phosphatase 58 Total Protein 5.7 L Albumin 2.9 L C. difficile (PCR) Negative Imaging Radiologist's impression: ITS Impressions Abdomen/Pelvis CT 06/12/25 15:26 IMPRESSION: 1. Persistent dilation of the ileum extending to the ileocecal valve where there is wall thickening both of the terminal ileum as well as of the ileocecal valve and cecum which likely represents residual inflammation and secondary ileus related to earlier acute appendicitis and subsequent appendectomy. 2. Small amount of likely reactive or residual postoperative ascites in the abdomen and pelvis without abscess or free intraperitoneal gas. 3. Severe left renal atrophy. Abdomen X-Ray 06/12/25 19:17 IMPRESSION: Enteric tube is in appropriate position. Abdomen X-Ray 06/13/25 10:19 IMPRESSION: 1 dilated loop of small bowel as described. Discharge Plan Discharge Attending physician on discharge: Isaiah Canseco Consulting providers: Bentley Juarez*Erica Discharging Clinician: Kari Fu Anticipated Discharge Date/Time: 06/14/25 12:02 Patient Disposition: Home Activity: may shower Diet: regular Wound Care Instructions: follow printed instructions Discharge Instructions: Continue lifting restrictions - no more than 10-15 pounds for one more week. No soaking in a bath, pool or other body of water for another week. OK to shower. Start with eating a bland, low fiber diet before advancing to your regular diet. Take ibuprofen and Tylenol for pain. Keep scheduled follow up appointment on 06/27/[address] Canseco. Please follow up with your primary care provider as soon as you are able to inquire about the following topics: Anemia with low hemoglobin count of 7.8. CT demonstrated severe left renal atrophy. EKG obtained during your hospital stay revealed some abnormal findings. Begin taking a daily multivitamin that contains iron. Eat foods rich in probiotics such as yogurt or consider taking daily probiotic. Call the office or go to the Emergency Department for: - Bleeding or increased drainage from wounds - Severe sparks - Vomiting - Fever greater than 101 degrees Patient Instructions: Antibiotic Form Patient Language: Albanian Stand Alone Forms: General Discharge Information, Work/School Release IP Follow-up/Referrals: Ann,Francy [Other] Isaiah Canseco MD [Physician, General Surgery] - Keep Reg. Scheduled Appt. Discharge Medications: Continued famotidine 20 mg tablet 20 mg PO Q12H PRN (Reason: indigestion) hydrocodone-acetaminophen 5-325 mg tablet 1 tablet PO Q4H PRN (Reason: pain) Qty: 12 0RF Date of admission: 06/13/25 08:45 Primary Care Provider: AnnFrancy Admitting Provider: Isaiah Canseco Attending physician on admission: Isaiah Canseco Condition: Stable
== END 2025-06-14 13:35 | disposition home or self-care (01) | DRG 247 ==
LOC: ANHED 16:30 → ANH3MEDSUR 17:17
PROVIDERS: Nurse Practitioner Family; Admitting Provider Surgery; Emergency Provider Family Medicine
DX: K56.7 Ileus, unspecified (principal); Z90.49 Acquired absence of other specified parts of digestive tract; N26.1 Atrophy of kidney (terminal); R94.31 Abnormal electrocardiogram [ECG] [EKG]; D64.9 Anemia, unspecified
CPT/HCPCS: 36415; 74019; 74177; 80048; 80053; 81001; 81025; 83605; 83690; 85025; 85027; 87493; 93005; 96361; 96365; 96367; 96372; 96374; 96375; 99285; A9270; G0378; G0379; J1450; J1650; J1885; J2270; J2405; J2470; J2543; J2765; J7030; J7120; Q9967

== ENCOUNTER 2025-06-18 13:21 | Inpatient (IN) | payer OTHER, SELFPAY ==
--- NOTE | ~2025-06-18 | XR_ITS ---
PROCEDURE(S): X-ray acute abdominal series INDICATION(S): Vomiting. Follow-up ileus. COMPARISON(S): June 13 TECHNIQUE: 3 supine and upright radiographic images was/were obtained. FINDINGS: Bowel gas: The bowel gas pattern is non-specific. There are some short air- fluid levels on the upright view. There are couple of mildly dilated loops of small bowel, similar to the prior study. Gas is seen distally in nondilated colon to the level of the splenic flexure. Soft tissues: There is an IUD present. Bones: Osseous structures appear to be intact. Scoliosis convex to the left in the lumbar spine. No free intraperitoneal air is seen. The lung bases are clear. IMPRESSION: Findings are consistent with ileus, and have not significantly changed. Reviewed, dictated and finalized at location A. UELS PLANT SUPERINTENDENT IMPRESSION: Findings are consistent with ileus, and have not significantly kraus ged.
--- NOTE | ~2025-06-18 | CT_ITS ---
Exam: CT chest, abdomen and pelvis with contrast Clinical History: [Rule out PE. Tachycardia. Vomiting. Status post laparoscopic appendectomy ] Comparison: [ CT abdomen and pelvis 06/12/2025 Technique: Multiple axial CT images of the chest, abdomen and pelvis were obtained with IV contrast. Sagittal and coronal reformatted images were obtained. FINDINGS: Lungs and pleura: [ No central pulmonary embolism identified. Contrast bolus is suboptimal.] Tracheobronchial tree is patent. No pneumothorax. No pleural effusion. No pulmonary mass. Mediastinum and pulmonary tami: [ No mass or adenopathy.] Axillary/intramammary and supraclavicular: [ No mass or adenopathy.] Heart and great vessels: [ Normal heart size.[ [ No pericardial effusion.] [ No aneurysm.] Chest Wall: [ Unremarkable.] Liver: [ No mass.] [ No intrahepatic biliary duct dilatation.] Gallbladder: [ No wall thickening or stones.] Common bile duct: [ Normal caliber.] [ No stones.] Spleen: [ Within normal limits.] Pancreas: [ No mass. No pancreatic fluid collection.] Adrenals: [ No masses.] Kidneys: [ No masses. No hydronephrosis.][ Moderate to severe atrophy of the left kidney.]. Compensatory hypertrophy of the right kidney. Lymph nodes: [ No adenopathy in the abdomen or pelvis.] Stomach, small bowel and colon: Thickening of the kunz of the bowel in the right lower abdomen/right upper hemipelvis with surrounding fat stranding and a few small hyperdensities possibly postsurgical change. Other etiologies are possible. Dilated mid and distal small bowel loops. Peritoneum cavity: Moderate amount of nonspecific fluid in the pelvis. Bladder: [ Unremarkable.] Osseous structures: Bilateral pars defects at the L5 level causing minimal anterolisthesis of L5 on S1. Abdominal aorta: [ No aneurysm.] Additional findings: IUD present in the uterus. IMPRESSION: 1. Thickening of the kunz of the bowel in the right lower abdomen/right upper hemipelvis with surrounding fat stranding and a few small hyperdensities possibly postsurgical change. Other etiologies are possible. Correlate clinically. History of recent laparoscopic appendectomy. 2. Dilated mid and distal small bowel loops. Follow-up is recommended. 3. Moderate amount of nonspecific fluid in the pelvis. 4. No central pulmonary embolism identified. Contrast bolus is suboptimal to evaluate for a pulmonary embolism. If symptoms persist or worsen, consider a short-term follow-up study or additional imaging for further assessment. Reviewed, dictated and finalized at location Q. NAVIGATOR IMPRESSION: 1. Thickening of the kunz of the bowel in the right lower abdomen/right upper hemipelvis with surrounding fat stranding and a few small hyperdensities possib ly postsurgical change. Other etiologies are possible. Correlate clinically. Hi story of recent laparoscopic appendectomy. 2. Dilated mid and distal small bowel loops. Follow-up is recommended. 3. Moderate amount of nonspecific fluid in the pelvis. 4. No central pulmonary embolism identified. Contrast bolus is suboptimal to ev aluate for a pulmonary embolism. If symptoms persist or worsen, consider a short-term follow-up study or additio nal imaging for further assessment.
--- NOTE | ~2025-06-18 | XR_ITS ---
XR hip LT 2V w AP pelvis 06/18/2025 14:29 Indication: Left hip pain after fall Procedure: AP pelvis 2 views left hip Comparison: No prior studies for comparison. Findings: No fracture, subluxation or dislocation. No soft tissue abnormality. No foreign bodies. There is an IUD present in the pelvis. Impression: 1: No acute fracture. Reviewed, dictated and finalized at location O. LITY SUPERVISOR Impression: 1: No acute fracture.
--- NOTE | 2025-06-18 13:25 | ADMGEN ---
This patient, Francy Clifford, was admitted to Medical Room 258-01. Patient/family oriented to hospital policies and general routines including ID bracelet, bed and alarms, visiting hours, pain management, procedures, bathroom and other care routines, personal items, smoking policy, room service/diet, and visiting hours. Information on how to activate the Rapid Response Team has been discussed. Patient/Family are encouraged to report perceived risks to care and to ask questions if they do not understand what they are told or what they should do.
[2025-06-18 13:26] VITALS: BMI 20.5
--- NOTE | 2025-06-18 13:47 | P.HP_ITS ---
H&P: HPI History of Present Illness Date/Time: 06/18/25 13:47 Chief Complaint: Vomiting, Syncope, Epigastric pain Narrative: This is a 19-year-old who is well known to our service after a recent laparoscopic appendectomy performed on 06/06/[address] Canseco. She was admitted for a postoperative ileus from 06/12/25 - 06/14/25. She was also anemic with her hemoglobin as low as 7.8. She was instructed to take a multivitamin with iron and f/u with her PCP. 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 She also reports having loose stools since surgery. She has noticed more diarrhea about 2-3 times per day, never more than 5 stools/day. She has not had Cdiff checked. She reports yesterday noticing burning epigastric pain that she attributed to heartburn. She also noticed this the day she was discharged. This morning, she went to the bathroom and had an unwitnessed syncopal episode. She woke up on her bathroom floor. She does not recall any symptoms leading up to this. She does not believe that she hit her head and denies any head pain or swelling. She feels like she fell on her left hip. She has pain at the left hip near the iliac crest and is tender in this area. She reports one other syncopal episode 4 years ago after taking multiple medications on an empty stomach while sick with a URI. She also reports having more epigastric pain and vomiting this morning. She called and was seen in our office today by Dr. Canseco due to her syncopal episode. She is now being directly admitted for vomiting, dehydration, syncope, andd epigastric pain. She denies a history of PUD or previous upper endoscopy. Review of Systems Review of Systems: All systems reviewed & are unremarkable except as noted in HPI and below PMFSH Surgical History Surgical History History of laparoscopic appendectomy Laparoscopic appendectomy Dr. Canseco 06/06/2025 Family History Family History Grandparent Cancer Hypertension Social History Social History Smoking status: Never smoker Alcohol intake: never Substance use: never Lack of Transportation: No Lack of Food: Never True Current Housing: I Have Housing Concerned About Future Housing: No Difficulty Paying Gas/Electric Bills: No Difficulty Paying for Meds: No Currently Unemployed: No Education: High School Diploma/GED Difficulty w/ Childcare or Family Care: No Spiritual care concerns: No Meds Home Medications and Allergies Home Medications ?Medication ?Instructions ?Recorded ?Confirmed ?Type bisacodyl 5 mg tablet 5 mg PO DAILY 06/18/2506/18 History multivitamin (Daily Multi-Vitamin 1 tablet PO DAILY 06/18/25 History tablet) Allergies Allergy/AdvReac Type Severity Reaction Status Date / Time cefdinir (From Omnicef) Allergy Intermediate Hives Verified 06/18/25 13:31 Exam Const: General: uncomfortable Nutritional Appearance: thin Orientation/consciousness: patient oriented x3 HENMT: Head: normocephalic and atraumatic Ears: hearing grossly normal bilaterally Mouth: Yes moist mucous membranes Eyes: General: appearance normal, both eyes and all related structures Pupils: Equal, round and reactive pupils present Neck: Neck: normal visual inspection and full ROM Resp: Effort & Inspection: no respiratory distress Auscultation: clear to auscultation bilaterally Cardio: Rate: tachycardic Rhythm: regular rhythm Peripheral pulses: Peripheral pulses 2+ throughout GI: Inspection: non-distended and incision (port site incisions dry and glue intact, no erythema or drainage) GI Palp: Yes Soft to palpation, Yes Tenderness to palpation present (GI) (epigastric tenderness and mild TTP in RLQ), No Guarding due to palpation present (GI), No Hernia present and No Rebound tenderness present Percussion: Yes normal to percussion Auscultation: normal bowel sounds Rectal Exam: deferred Skin: General skin exam: other (pale) Neuro: General: moves all extremities and no focal motor deficits Speech: normal speech Motor exam (neuro): 5/5 motor strength present throughout Extrem: General: normal to inspection, no edema and other (Left hip without bruising or swelling, mild TTP near left iliac crest) Left lower extremity: full ROM, normal capillary refill, hip/thigh Details: no swelling and no ecchymosis and foot Details: normal capillary refill, warmth, no edema and vascular exam Details: dorsalis pedis pulse present Psych: Mental Status: mental status grossly normal Attitude: cooperative Insight: Good insight present (Psych) Judgement: Good judgement present (Psych) Assessment and Plan Assessment and plan (1) Nausea & vomiting: Code(s): R11.2 - Nausea with vomiting, unspecified Status: Acute Assessment and Plan: * Nausea and vomiting following a syncopal episode this morning. She was treated for postoperative ileus last week as well. Her abdomen does not appear distended and she is mostly tender in the epigastric area. Will start Protonix BID IV to cover for gastritis/PUD. Will start with an obstructive series and order baseline labs. I have also ordered Zofran PRN and started IV fluids. We will keep her NPO for now while getting further workup. (2) Anemia: Code(s): D64.9 - Anemia, unspecified Status: Acute Assessment and Plan: * Patient was found to be anemic on her recent hospitalization last week. Her Hgb was as low as 7.8 and she started taking a multivitamin with iron. * Will repeat CBC to evaluate need for possible transfusion and add a type and screen. (3) Syncope: Code(s): R55 - Syncope and collapse Status: Acute Assessment and Plan: * Unknown etiology. Vasovagal? Dehydration/hypovolemia? Cardiac? Will order telemetry and baseline labs. Start IV fluids. Could consider Hospitalist consult for further workup. * Complaining of left hip pain following her syncopal episode. Will order plain films of L hip/pelvis. (4) Diarrhea: Qualifiers: Diarrhea type: unspecified type Qualified Code(s): R19.7 - Diarrhea, unspecified Code(s): R19.7 - Diarrhea, unspecified Status: Acute Assessment and Plan: * Reports having diarrhea since surgery, recently worse. Will order C diff and stool studies. (5) Epigastric pain: Code(s): R10.13 - Epigastric pain Status: Acute Assessment and Plan: * Unclear etiology. Will start IV Protonix for now and get an obstructive series. Depending on plain films and initial workup, may consider CT scan. (6) History of appendectomy: Code(s): Z90.49 - Acquired absence of other specified parts of digestive tract Status: Acute Assessment and Plan: * 06/06/25 for uncomplicated acute appendicitis, pathology showed acute appendicitis Plan I have discussed the patient's case and plan of care with Dr. Canseco.
[2025-06-18 14:00] VITALS: BP 133/87; PULSE 133; RESP 18; TEMP 36.6; O2SAT 98
[2025-06-18 14:28] VITALS: BP 130/88; PULSE 146; TEMP 36.6; O2SAT 100
[2025-06-18 14:30] LABS: Hematocrit 36.7 % (37.0-47.0); Hemoglobin 11.2 g/dL (12.0-15.0); Immature Granulocyte Percent A 0.6 % (0-0.5); Lymphocytes Absolute Auto 1.31 K/mm3 (0.9-3.2); Mean Corpuscular HGB Conc 30.5 g/dl (32-36); Mean Corpuscular Hemoglobin 22.3 pg (26-34); Mean Corpuscular Volume 73.1 fl (80-100); Nucleated Red Blood Cells Absolute Auto 0.000 K/mm3 (0.0-0.012); Nucleated Red Blood Cells Perc 0.0 % (0.0-0.2); Platelet Count Result 563 k/mm3 (150-375); Red Blood Count 5.02 M/mm3 (4.2-5.4); White Blood Count 22.6 K/mm3 (4.5-10.0)
[2025-06-18] MEDS: KCL 20MEQ/0.9% SOD CHL 1,000 ML 100 ML IV CONT (14:44)
[2025-06-18] MEDS: ONDANSETRON INJ 4 MG/2 ML VIAL IV PUSH (14:46)
[2025-06-18 14:50] VITALS: PULSE 118; RESP 18; O2SAT 100
[2025-06-18 14:51] LABS: Microcytosis Occasional (NORMAL); Ovalocytes Occasional; Schistocytes None Seen
--- OUTSIDE RECORDS SUMMARY | 2025-06-18 14:55 | XMS_ITS | Encounter Summary ---
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
--- OUTSIDE RECORDS SUMMARY | 2025-06-18 14:56 | XMS_ITS | Clinical Summary ---
Author Organization [facility] Address [address] [place] [address] Phone Care Team Providers Care Analytics Leader Name Role Phone Provider, Unknown Primary Care [...] 05/12/2025 12:05 PM CDT [facility] Rafita Hernandez [address] [place] [place] [address] Gregory Lopez MD Vaginal discharge (Primary Dx) Discharge Disposition: Discharged to home or Selfcare 05/12/2025 Results Follow-Up [facility] Rafiat Hernanedz [address] [place] [address] Gregory Lopez MD VAGINITIS SCREEN, MOLECULAR 05/12/2025 Travel 03/28/2025 12:45 PM CDT Office Visit [facility] [address] [facility] [place] [address] Carmen Sharpe, FEMI, RUG CLEANING SUPERVISOR Encounter for PPD skin test reading (Primary Dx) Discharge Disposition: Discharged to home or Selfcare 03/27/2025 9:00 AM CDT [facility] [address] [facility] [place] [address] Brittney Gan, BRICK HANDLER, RUG CLEANING SUPERVISOR Pre-school health examination (Primary Dx) Discharge Disposition: Discharged to home or Selfcare 03/26/2025 11:30 AM CDT [facility] [address] [place] [address] Geena Buitrago, BRICK HANDLER, RUG CLEANING SUPERVISOR Encounter for PPD test (Primary Dx) Discharge [...] on file 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 Gender Identity Not on file Sexual Orientation [...] 05/12/2025 12:26 PM CDT Vaginal discharge POCT [facility] TB TEST Routine 03/28/2025 1:14 PM CDT Encounter for PPD skin test reading INFECTIOUS DISEASE PROCEDURE 03/26/2025 12:00 AM CDT INFECTIOUS DISEASE PROCEDURE 03/26/2025 12:00 AM CDT from Last 3 Months Results * VAGINITIS SCREEN, MOLECULAR (05/12/2025 12:37 PM CDT) TRICHOMONAS NOT DETECTED NOT DETECTED 05/12/2025 7:47 PM CDT [facility] BACTERIAL VAGINOSIS NOT DETECTED NOT DETECTED 05/12/2025 7:47 PM CDT [facility] IRAM NOT DETECTED NOT DETECTED 05/12/2025 7:47 PM CDT [facility] Comment: Iram group Not detected with the following possible Iram species: Iram albicans and/or Iram tropicalis and/or Iram parapsilosis and/or Iram dubliniensis IRAM GLABRATA NOT DETECTED NOT DETECTED 05/12/2025 7:47 PM CDT [facility] IRAM KRUSEI NOT DETECTED NOT DETECTED 05/12/2025 7:47 PM CDT [facility] Other VAGINAL STRUCTURE / Unknown Non-Phlebotomy Collection / Unknown 05/12/2025 12:37 PM CDT 05/12/2025 12:37 PM CDT us Gregory Lopez MD MICROBIOLOGY - GENERAL ORDERABL ES Final Result [facility] [address] [place] [address], * POCT URINE HCG () (05/12/2025 12:26 PM CDT) POC URINE Negative POC URINE CONTROL [employer] [employer] Pass Urine 05/12/2025 12:2 6 PM CDT Gregory Lopez MD POINT OF CARE TESTING (MANUAL) Final Result * POCT [facility] TB TEST (03/28/2025 1:14 PM CDT) TB [...] SCAN from Last 3 Months Insurance [place]ID [place] [employer] [place] Care Teams Analytics Leader Relationship Specialty Start Date End Date Provider, Unknown UNKNOWN PCP - General 10/05/24
--- OUTSIDE RECORDS SUMMARY | 2025-06-18 14:56 | XMS_ITS | Clinical Summary ---
Author Organization [facility] Address [address] [place] [address] Phone Care Team Providers Care Editor In Chief Newspaper Name Role Phone Identified, No Provider Primary [...] Description 03/20/2025 9:15 AM CDT Office Visit [facility] [place] [facility] [address] [address] Judy Lowry, MANAN IUD check up (Primary [...] Info) Description 03/20/2026 9:30 AM CDT Physical [facility] [place] [facility] [address] [place] [address] Judy Lowry, CNM [address] [place], [place] [id number] Health Maintenance Due Date Last Done Comments [...] to complete this topic Insurance Care Teams Editor In Chief Newspaper Relationship Specialty Start Date End Date Identified, No Provider PCP - General 01/29/25
--- OUTSIDE RECORDS SUMMARY | 2025-06-18 14:56 | XMS_ITS | Clinical Summary ---
Author Organization [address] Address [facility] [place] [address] Care Team Providers Care Assisted Living Associate Name Role Phone Francy Juarez MD Primary Care Provider [phone] Allergies Active Allergy Reactions Criticality Noted Date Comments Cefdinir Hives High 04/06/2007 Hives 24 hours after completing course? Allergy Medications levonorgestreL (MIRENA) IUD 1 each by intrauterine route 02/28/20 25 041 Active famotidine (PEPCID) 20 mg tabletIndications: Heartburn Take 1 tablet (20 mg total) by mouth 2 (two) times a day 60 tablet 11 05/29/20 25 026 Active lidocaine (GLYDO) 2 % jelly in applicator Apply topically as needed 02/28/20 025 Discontin ued(Patie nt Reported) ondansetron ODT (ZOFRAN-ODT) 4 mg disintegrating tabletIndications: Nausea vomiting and diarrhea Take 1 tablet (4 mg total) by mouth every 8 (eight) hours as needed for nausea or vomiting 10 tablet 05/09/20 25 025 Discontin ued(Patie nt Reported) Active Problems Problem Noted Date Diagnosed Date IUD (intrauterine device) in place 03/20/2025 Acute otitis externa 06/27/2013 Overview (05/09/2025): OV-06/27/13; OV-03/21/14; Cerumen impaction 06/27/2013 Overview (05/09/2025): OV-06/27/13 - Right; Encounters Date Type Department Care Team Description 05/29/2025 3:00 PM CDT Office Visit [facility] Primary Care at [address] [phone] Francy Juarez MD Abdominal pain of multiple sites (Primary Dx); Indigestion 05/28/2025 3:45 PM CDT Office Visit [facility] at [address] [phone] Dee Arnett NP Chronic RLQ pain (Primary Dx) 05/20/2025 Telephone [facility] at [address] [phone] Yvette Khoury LPN 05/18/2025 8:10 PM CDT - 05/18/2025 11:59 PM CDT Hospital Encounter [address] [address] Discharge Disposition: Discharge to home or self care 05/18/2025 4:15 PM CDT Office Visit [facility] at [address] [phone] Shama Hawk NP Vaginal discharge (Primary Dx) 05/09/2025 8:30 AM CDT Office Visit [facility] at [address] [phone] Az Becerra NP Nausea vomiting [...] Iram group Not Detected Not Detected CERNER Iram glabrata/ krusei Not Detected Not Detected CERNER Trichomonas DNA Not Detected Not Detected CERNER Vaginal 05/18/2025 4:29 PM CDT 05/18/2025 8:19 PM CDT Yasmin OLIVEROS CH - 05/18/2025 9:19 PM CDT [employer] Xpert Xpress MVP test detects DNA targets [...] this test have been verified by the [facility]. Shama Hawk NP LAB MICROBIOLOGY - GENERAL ORDERABLES Final Result [place] [address] [address] Department [place] [address] from Last 3 Months Insurance [facility] Care Teams Assisted Living Associate Relationship Specialty Start Date End Date Francy Juarez MD [address] [address] PCP - General Family Medicine 05/29/25
[2025-06-18 15:08] LABS: Alanine Aminotransferase 11 U/L (6-35); Albumin Level 4.4 g/dL (3.5-5.1); Alkaline Phosphatase 88 U/L (38-126); Anion Gap 12 mmol/L (4-12); Aspartate Amino Transferase 56 U/L (14-36); Bilirubin,Total 0.5 mg/dL (0.2-1.3); Blood Urea Nitrogen 11 mg/dL (7-17); Calcium 9.6 mg/dL (8.4-10.2); Carbon Dioxide 19 mmol/L (22-30); Chloride 104 mmol/L (98-107); Estimated CRCL calculation 80 ml/min; Estimated Glomerular Filt Rate > 60; Glucose 97 mg/dL (65-110); Magnesium 2.2 mg/dL (1.6-2.3); Potassium 4.2 mmol/L (3.4-5.0); Sodium 135 mmol/L (137-145); Total Protein 8.1 g/dL (6.3-8.2)
--- NOTE | 2025-06-18 15:14 | ECG_ITS ---
Test Date: 2025-06-18 15:25:07 Measurements Intervals [place] Rate: 106 P: 67 [place]: 129 QRS: 55 QRSD: 72 T: -14 QT: 312 QTc: 415 Interpretive Statements SINUS TACHYCARDIA NONSPECIFIC T-WAVE ABNORMALITY Compared to ECG 06/13/2025 10:03:21 Myocardial infarct finding no longer present Possible ischemia no longer present T-wave abnormality still present Electronically Signed On 06-18-2025 21:22:48 IRON WORKER by Babita Gayle M.D.
[2025-06-18] MEDS: LACTATED RINGERS 1,000 ML 999 ML IV CONT (15:39)
[2025-06-18 16:00] VITALS: PULSE 121
[2025-06-18] MEDS: ACETAMINOPHEN 500 MG TABLET 1000 MG PO (16:05)
[2025-06-18 16:16] LABS: Influenza A QL RT-PCR Negative (Negative); Influenza B QL RT-PCR Negative (Negative); RSV RNA, RT-PCR Negative (Negative); SARS-CoV-2 RNA PCR Negative (Negative)
[2025-06-18] MEDS: PIPERACILLIN/TAZOBACTAM SOD 3.375 GM in SODIUM CHLORIDE 0.9% IV 50 ML 100 ML IVPB ×2 (17:12→23:54)
[2025-06-18] MEDS: metroNIDAZOLE 500 MG/ISO 100ML 500 MG/100 ML BAG 100 MG IVPB (17:15)
[2025-06-18 20:00] VITALS: PULSE 80
[2025-06-18 20:35] VITALS: BP 112/68; PULSE 81; RESP 18; TEMP 36.3; O2SAT 100
[2025-06-18] MEDS: PANTOPRAZOLE SODIUM IV 40 MG VIAL IV PUSH (21:27)
[2025-06-19] VITALS (9 sets, daily range): BP systolic 101–118; BP diastolic 64–69; PULSE 64–97; RESP 14–18; TEMP 36.4–37; O2SAT 100
[2025-06-19] MEDS: KCL 20MEQ/0.9% SOD CHL 1,000 ML 130 ML IV CONT ×2 (00:28→10:53)
[2025-06-19] MEDS: metroNIDAZOLE 500 MG/ISO 100ML 500 MG/100 ML BAG 100 MG IVPB ×3 (00:28→16:57)
[2025-06-19 03:35] LABS: Add Urine Microscopic? YES; Appearance Urine Clear (Clear); Glucose Urine UA Negative (Negative); Leukocyte Esterase Ur Negative LEU/UL (Negative); Nitrate Urine Negative (Negative); Non Pathogenic Casts 0-2; Specific Grav Ur 1.044 (1.001-1.035)
[2025-06-19] MEDS: PIPERACILLIN/TAZOBACTAM SOD 3.375 GM in SODIUM CHLORIDE 0.9% IV 50 ML 100 ML IVPB ×3 (05:03→18:05)
[2025-06-19 05:27] LABS: Hematocrit 28.1 % (37.0-47.0); Hemoglobin 8.3 g/dL (12.0-15.0); Mean Corpuscular HGB Conc 29.5 g/dl (32-36); Mean Corpuscular Hemoglobin 22.4 pg (26-34); Mean Corpuscular Volume 75.7 fl (80-100); Platelet Count Result 366 k/mm3 (150-375); Red Blood Count 3.71 M/mm3 (4.2-5.4); White Blood Count 10.8 K/mm3 (4.5-10.0)
[2025-06-19 07:22] LABS: Anion Gap 6 mmol/L (4-12); Blood Urea Nitrogen 9 mg/dL (7-17); Calcium 8.3 mg/dL (8.4-10.2); Carbon Dioxide 19 mmol/L (22-30); Chloride 108 mmol/L (98-107); Estimated CRCL calculation 78 ml/min; Estimated Glomerular Filt Rate > 60; Glucose 73 mg/dL (65-110); Potassium 4.3 mmol/L (3.4-5.0); Sodium 133 mmol/L (137-145)
[2025-06-19] MEDS: PANTOPRAZOLE SODIUM IV 40 MG VIAL IV PUSH (08:11)
[2025-06-19 08:57] LABS: Toxigenic C. Diff NEGATIVE (NEGATIVE)
--- NOTE | 2025-06-19 10:13 | P.PNGS_ITS ---
Progress Note: A&P Assessment and Plan (1) Nausea & vomiting: Code(s): R11.2 - Nausea with vomiting, unspecified Status: Acute Assessment and Plan: * Patient admitted after having nausea and vomiting following a syncopal episode yesterday. Nausea improved and no vomiting since admission. * CTA chest/abdomen/pelvis showed still some dilated small bowel loops, but she continues to move her bowels and symptoms are improving. CT also showed thickening of the bowel in the right lower abdomen with surrounding fat stranding, which is more than we would anticipate this far out from her appendectomy. Differential would include Crohn's/IBD? Continue IV antibiotics for now. Will consult GI for their recommendations and to see if she would benefit from endoscopic evaluation. Continue PPI and PRN antiemetics. Will keep her on clear liquids for now while pending GI evaluation. (2) Anemia: Code(s): D64.9 - Anemia, unspecified Status: Acute Assessment and Plan: * Hgb 8.3 after receiving IV fluids for hydration. No need for transfusion at this time. Continue to monitor labs. GI consulted, see above. (3) Syncope: Code(s): R55 - Syncope and collapse Status: Acute Assessment and Plan: * Etiology not entirely clear. Telemetry without any arrhythmias. 12-lead EKG showed sinus tachycardia. Tachycardia has resolved with IV fluid hydration. Could be related to dehydration/volume depletion? Vasovagal? (4) Diarrhea: Qualifiers: Diarrhea type: unspecified type Qualified Code(s): R19.7 - Diarrhea, unspecified Code(s): R19.7 - Diarrhea, unspecified Status: Acute Assessment and Plan: * Stool studies sent. Cdiff negative. Influenza A/B, RSV, COVID all negative. Imodium PRN ordered. * GI consulted (5) Epigastric pain: Code(s): R10.13 - Epigastric pain Status: Acute Assessment and Plan: * Burning epigastric pain/heartburn, and epigastric tenderness on exam, which is improving. * Continue PPI. * CTA negative for central PE, findings of moderate nonspecific fluid in pelvis, dilated mid and distal small bowel loops, and thickening of the kunz of the bowel in the RLQ/right upper hemipelvis with surrounding fat stranding. We would not anticipate this amount of inflammation to still be residual from her surgery. Concern that there is another etiology causing her symptoms and inflammation. GI has been consulted. (6) History of appendectomy: Code(s): Z90.49 - Acquired absence of other specified parts of digestive tract Status: Acute Assessment and Plan: * 06/06/25 for uncomplicated acute appendicitis, pathology showed acute appendicitis Plan I have discussed the patient's case and plan of care with Dr. Canseco. Subjective Subjective Date/Time Seen: 06/19/25 10:13 Patient reports: no new complaints, feels better, tolerating liquids well, flatus and bowel movement (still having loose stools) Interval history: Patient reports feeling better this am. She still has some burning pain in the epigastric area and radiating down to her central abdomen. No nausea this am and no vomiting overnight. Last had Zofran around 2:30 pm yesterday. She has had a few loose stools and stools studies were sent. C.diff negative. WBC down to 10k. She is afebrile and her tachycardia has resolved with IV fluids. Exam Const: General: comfortable and no acute distress GI: Inspection: non-distended and incision (dry and healing well, glue intact, no erythema) GI Palp: Yes Soft to palpation, Yes Tenderness to palpation present (GI) (epigastric area and RLQ), No Guarding due to palpation present (GI) and No Rebound tenderness present Auscultation: normal bowel sounds Objective Data Vital Signs Vital Signs: Vital Signs - 24 hr 06/18/25 14:00 06/18/25 14:28 06/18/25 14:50 Temperature 97.8 F 97.8 F Pulse Rate 133 H 146 H 118 H Respiratory Rate 18 18 Blood Pressure 133/87 130/88 Pulse Oximetry 98 100 100 Oxygen Delivery Room Air 06/18/25 16:00 06/18/25 20:00 06/18/25 20:35 Temperature 97.4 F L Pulse Rate 121 H 80 81 Respiratory Rate 18 Blood Pressure 112/68 Pulse Oximetry 100 Oxygen Delivery 06/18/25 21:18 06/19/25 00:00 06/19/25 04:00 Temperature Pulse Rate 64 86 Respiratory Rate Blood Pressure Pulse Oximetry Oxygen Delivery Room Air 06/19/25 04:45 06/19/25 08:27 Temperature 97.6 F Pulse Rate 96 Respiratory Rate 18 Blood Pressure 109/69 Pulse Oximetry 100 Oxygen Delivery Room Air Intake/Output Intake/Output: Intake & Output 06/16/25 06/17/25 06/18/25 06/19/25 22:59 23:59 23:59 23:59 Intake Total 150 3273.3 Output Total 450 Balance 150 2823.3 Meds/Results Medications: Active Medications Generic Name Dose Route Start Last Admin Trade Name Freq PRN Reason Stop Dose Admin Acetaminophen 1,000 mg 06/18/25 15:20 06/18/25 16:05 Acetaminophen 500 Mg Tablet PO 1,000 mg Q6H PRN Administration Mild Pain (1-3) or Fever Potassium Chloride/Sodium Chloride 1,000 mls @ 130 mls/hr 06/18/25 13:55 06/19/25 08:10 Kcl 20 Meq/Ns IV CONT Infused .Q7H42M JAZMYN Infusion Piperacillin Sod/Tazobactam 50 mls @ 100 mls/hr 06/18/25 18:00 06/19/25 05:33 Sod 3.375 gm/ Sodium Chloride IVPB Infused Q6HR JAZMYN Infusion Metronidazole 500 mg in 100 mls @ 100 mls/hr 06/18/25 16:00 06/19/25 08:12 Flagyl 500 Mg/Iso Soln 100 Ml IVPB 100 mls/hr Q8H JAZMYN Administration Loperamide HCl 2 mg 06/18/25 18:24 Loperamide Hcl 2 Mg Capsule PO PRN PRN Diarrhea Ondansetron HCl 4 mg 06/18/25 13:52 06/18/25 14:46 Ondansetron Inj 4 Mg/2 Ml Vial IV PUSH 4 mg Q4H PRN Administration Nausea And Vomiting Pantoprazole Sodium 40 mg 06/18/25 21:00 06/19/25 08:11 Pantoprazole Sodium Iv 40 Mg Vial IV PUSH 40 mg Q12HR JAZMYN Administration Radiology Results: ITS Impressions Abdomen X-Ray 06/18/25 14:31 IMPRESSION: Findings are consistent with ileus, and have not significantly changed. Hip/Pelvis X-Ray 06/18/25 14:50 Impression: 1: No acute fracture. Chest/Abdomen/Pelvis CTA 06/18/25 16:08 IMPRESSION: 1. Thickening of the kunz of the bowel in the right lower abdomen/right upper hemipelvis with surrounding fat stranding and a few small hyperdensities possibly postsurgical change. Other etiologies are possible. Correlate clinically. History of recent laparoscopic appendectomy. 2. Dilated mid and distal small bowel loops. Follow-up is recommended. 3. Moderate amount of nonspecific fluid in the pelvis. 4. No central pulmonary embolism identified. Contrast bolus is suboptimal to evaluate for a pulmonary embolism. If symptoms persist or worsen, consider a short-term follow-up study or additional imaging for further assessment. Labs Labs: Laboratory Results - last 24 hr 06/18/25 06/18/25 06/19/25 14:02 15:35 03:19 WBC 22.6 H RBC 5.02 Hgb 11.2 L D Hct 36.7 L MCV 73.1 L MCH 22.3 L MCHC 30.5 L RDW 16.9 H Plt Count 563 H D MPV 9.0 Immature Gran % (Auto) 0.6 H Neut % (Auto) 90.0 H Lymph % (Auto) 5.8 L [place] % (Auto) 3.4 Eos % (Auto) 0.0 Baso % (Auto) 0.2 Lymph # (Auto) 1.31 [place] # (Auto) 0.8 H Eos # (Auto) 0.0 Baso # (Auto) 0.1 Abs Immat Gran (auto) 0.13 H Absolute Neuts (auto) 20.4 H Absolute Nucleated RBC 0.000 Band Neutrophils % Not Reportable Nucleated RBC % 0.0 Platelet Estimate Increased Microcytosis Occasional Ovalocytes Occasional Schistocytes None seen Sodium 135 L Potassium 4.2 Chloride 104 Carbon Dioxide 19 L Anion Gap 12 BUN 11 D Creatinine 0.73 Estim Creat Clear Calc 80 Estimated GFR > 60 Glucose 97 Calcium 9.6 Magnesium 2.2 Total Bilirubin 0.5 AST 56 H ALT 11 Alkaline Phosphatase 88 Total Protein 8.1 Albumin 4.4 Urine Color Yellow Urine Appearance Clear Urine pH 6.5 Ur Specific [place] 1.044 H Urine Protein Negative Urine Glucose (UA) Negative Urine Ketones 1+ H Ur Blood (Man) 2+ H Urine Nitrate Negative Urine Bilirubin Negative Urine Urobilinogen 0.2 Leukocyte Esterase Rfl Negative Urine RBC 21-50 H Urine WBC 0-5 Ur Squamous Epith Cells None seen Urine Bacteria None seen Urine Casts 0-2 C. difficile (PCR) Influenza A (RT-PCR) Negative Influenza B (RT-PCR) Negative RSV (RT-PCR) Negative SARS-CoV-2 RNA (RT-PCR) Negative Blood Type B Positive Antibody Screen Negative 06/19/25 06/19/25 05:03 08:02 WBC 10.8 H RBC 3.71 L Hgb 8.3 L Hct 28.1 L MCV 75.7 L MCH 22.4 L MCHC 29.5 L RDW 16.8 H Plt Count 366 MPV 9.4 Immature Gran % (Auto) Neut % (Auto) Lymph % (Auto) [place] % (Auto) Eos % (Auto) Baso % (Auto) Lymph # (Auto) [place] # (Auto) Eos # (Auto) Baso # (Auto) Abs Immat Gran (auto) Absolute Neuts (auto) Absolute Nucleated RBC Band Neutrophils % Nucleated RBC % Platelet Estimate Microcytosis Ovalocytes Schistocytes Sodium 133 L Potassium 4.3 Chloride 108 H Carbon Dioxide 19 L Anion Gap 6 BUN 9 Creatinine 0.75 Estim Creat Clear Calc 78 Estimated GFR > 60 Glucose 73 Calcium 8.3 L Magnesium Total Bilirubin AST ALT Alkaline Phosphatase Total Protein Albumin Urine Color Urine Appearance Urine pH Ur Specific [place] Urine Protein Urine Glucose (UA) Urine Ketones Ur Blood (Man) Urine Nitrate Urine Bilirubin Urine Urobilinogen Leukocyte Esterase Rfl Urine RBC Urine WBC Ur Squamous Epith Cells Urine Bacteria Urine Casts C. difficile (PCR) Negative Influenza A (RT-PCR) Influenza B (RT-PCR) RSV (RT-PCR) SARS-CoV-2 RNA (RT-PCR) Blood Type Antibody Screen
[2025-06-19] MEDS: ONDANSETRON INJ 4 MG/2 ML VIAL IV PUSH (11:53)
--- NOTE | 2025-06-19 17:56 | WPDGICN ---
Assessment and Plan Assessment and plan (1) Diarrhea: Qualifiers: Diarrhea type: unspecified type Qualified Code(s): R19.7 - Diarrhea, unspecified Code(s): R19.7 - Diarrhea, unspecified Status: Acute Assessment and Plan: CT scan report and images reviewed. There is abnormal thickening of the right colon, prompting consideration of inflammatory bowel disease in the differential diagnosis. Agreed with general management and will perform a colonoscopy tomorrow. Suggest discontinuing metronidazole since Zosyn will cover intra-abdominal anaerobes very appropriately. Plan - suggest d/c Metronidazole if Ok with surgical team - Colonoscopy tomorrow - Stool calprotectin, CRP GI Consult Note Consult date/time: 06/19/25 17:57 Reason for consult: Chronic diarrhea-abdominal pain HPI: Francy Clifford was initially admitted on 06/06/2025 for a laparoscopic appendectomy and was readmitted shortly thereafter for a resolved postoperative ileus. She was readmitted again on 06/18/2025 due to a syncopal episode and several hours of persistent bilious vomiting. Pertinent history includes chronic intermittent diarrhea for over one year (negative for blood, tenesmus, or weight loss). Initial labs showed significant hemoconcentration and leukocytosis (WBC 22.6, Hgb 11.2, Platelet 563). Post-volume repletion, WBC normalized to 10.8, but Hb dropped to 8.[address] revealed thickening and dilation of small bowel loops in the right lower and upper quadrants, in addition to post-op changes. The patient is showing signs of resolution, reporting passing gas and two diarrheal bowel movements this afternoon. Our service is consulted due to the unusual findings for a simple laparoscopic appendectomy, raising the suspicion for inflammatory bowel disease. A C difficile stool assay was negative this morning. Review of Systems Review of Systems: All systems reviewed & are unremarkable except as noted in HPI and below PMFSH Surgical History Surgical History History of laparoscopic appendectomy Laparoscopic appendectomy Dr. Canseco 06/06/2025 Family History Family History Grandparent Cancer Hypertension Social History Social History Smoking status: Never smoker Alcohol intake: never Substance use: never Lack of Transportation: No Lack of Food: Never True Current Housing: I Have Housing Concerned About Future Housing: No Difficulty Paying Gas/Electric Bills: No Difficulty Paying for Meds: No Currently Unemployed: No Education: High School Diploma/GED Difficulty w/ Childcare or Family Care: No Spiritual care concerns: No Meds Home Medications and Allergies Home Medications ?Medication ?Instructions ?Recorded ?Confirmed ?Type bisacodyl 5 mg tablet 5 mg PO DAILY 06/18/25 06/18/25 History multivitamin (Daily Multi-Vitamin 1 tablet PO DAILY 06/18/25 06/18/25 History tablet) Allergies Allergy/AdvReac Type Severity Reaction Status Date / Time cefdinir (From Omnicef) Allergy Intermediate Hives Verified 06/18/25 13:31 Vital Signs Vital Signs - 24 hr 06/18/25 20:00 06/18/25 20:35 06/18/25 21:18 Temperature 97.4 F L Pulse Rate 80 81 Respiratory Rate 18 Blood Pressure 112/68 Pulse Oximetry 100 Oxygen Delivery Room Air 06/19/25 00:00 06/19/25 04:00 06/19/25 04:45 Temperature 97.6 F Pulse Rate 64 86 96 Respiratory Rate 18 Blood Pressure 109/69 Pulse Oximetry 100 Oxygen Delivery 06/19/25 08:00 06/19/25 08:27 06/19/25 12:00 Temperature Pulse Rate 97 78 Respiratory Rate Blood Pressure Pulse Oximetry Oxygen Delivery Room Air 06/19/25 13:50 Temperature 97.8 F Pulse Rate 96 Respiratory Rate 14 Blood Pressure 101/64 Pulse Oximetry 100 Oxygen Delivery Exam Const: General: cooperative and healthy appearing Resp: Effort & Inspection: normal respiratory effort and able to speak in complete sentences Auscultation: clear to auscultation bilaterally Cardio: Rate: regular rate Rhythm: regular rhythm GI: Inspection: normal to inspection GI Palp: No No hepatosplenomegaly present Auscultation: normal bowel sounds Rectal Exam: deferred Skin: General skin exam: normal color Psych: Appearance: grossly normal Mental Status: mental status grossly normal Results Labs 06/19/25 05:03 06/19/25 05:03 Labs: Short CBC 06/19/25 Range/Units 05:03 WBC 10.8 H (4.5-10.0) K/mm3 Hgb 8.3 L (12.0-15.0) g/dL Hct 28.1 L (37.0-47.0) % Plt Count 366 (150-375) k/mm3 BMP 06/19/25 05:03 Sodium 133 L Potassium 4.3 Chloride 108 H Carbon Dioxide 19 L BUN 9 Creatinine 0.75 Glucose 73 Calcium 8.3 L Urine 06/19/25 Range/Units 03:19 Urine Color Yellow (Yellow) Urine Appearance Clear (Clear) Urine pH 6.5 (5.0-9.0) Ur Specific [place] 1.044 H (1.001-1.035) Urine Protein Negative (Negative) mg/dL Urine Glucose (UA) Negative (Negative) mg/dL
[2025-06-19 19:19] LABS: CRP 5.4 mg/dL (<1.0)
[2025-06-19] MEDS: ACETAMINOPHEN 500 MG TABLET 1000 MG PO (20:59)
[2025-06-19] MEDS: KCL 20MEQ/0.9% SOD CHL 1,000 ML 100 ML IV CONT (23:21)
[2025-06-20] VITALS (12 sets, daily range): BP systolic 102–128; BP diastolic 55–79; PULSE 69–90; RESP 16–21; TEMP 36.6–37.1; O2SAT 98–100
[2025-06-20] MEDS: PIPERACILLIN/TAZOBACTAM SOD 3.375 GM in SODIUM CHLORIDE 0.9% IV 50 ML 100 ML IVPB ×4 (00:22→17:26)
[2025-06-20] MEDS: ONDANSETRON INJ 4 MG/2 ML VIAL IV PUSH (01:39)
[2025-06-20 05:25] LABS: Hematocrit 27.8 % (37.0-47.0); Hemoglobin 8.2 g/dL (12.0-15.0); Immature Granulocyte Percent A 0.3 % (0-0.5); Lymphocytes Absolute Auto 1.51 K/mm3 (0.9-3.2); Mean Corpuscular HGB Conc 29.5 g/dl (32-36); Mean Corpuscular Hemoglobin 22.0 pg (26-34); Mean Corpuscular Volume 74.7 fl (80-100); Nucleated Red Blood Cells Absolute Auto 0.000 K/mm3 (0.0-0.012); Nucleated Red Blood Cells Perc 0.0 % (0.0-0.2); Platelet Count Result 389 k/mm3 (150-375); Red Blood Count 3.72 M/mm3 (4.2-5.4); White Blood Count 6.2 K/mm3 (4.5-10.0)
[2025-06-20 05:51] LABS: Anion Gap 7 mmol/L (4-12); Blood Urea Nitrogen 3 mg/dL (7-17); Calcium 8.4 mg/dL (8.4-10.2); Carbon Dioxide 21 mmol/L (22-30); Chloride 109 mmol/L (98-107); Estimated CRCL calculation 84 ml/min; Estimated Glomerular Filt Rate > 60; Glucose 85 mg/dL (65-110); Potassium 4.3 mmol/L (3.4-5.0); Sodium 137 mmol/L (137-145)
--- NOTE | 2025-06-20 10:05 | PC.NURSE ---
To GI lab via wheelchair.
[2025-06-20] MEDS: LACTATED RINGERS 1,000 ML 150 ML IV CONT (10:20)
--- NOTE | 2025-06-20 10:37 | WPDANESEPPF ---
Anes - Initial Pre Proc Eval Procedure: Operation Date: 06/20/25 11:30 Proposed Procedures p Diagnostic Colonoscopy - Abhijit Strickland MD Date/Time: 06/20/25 10:37 Surgeon: Isaiah Canseco MD Pre Op Diagnosis: n/v,dehydration,anemia Patient Data Age: 19 Gender: F Height: 1.55 m Weight: 49.3 kg Last Vital Signs Temp 36.8 C 06/20/25 10:17 Pulse 76 06/20/25 10:17 Resp 16 06/20/25 10:17 BP 122/77 06/20/25 10:17 Pulse Ox 100 06/20/25 10:17 O2 Del Method Room Air 06/20/25 10:17 Allergies Allergy/AdvReac Type Severity Reaction Status Date / Time cefdinir (From Omnicef) Allergy Intermediate Hives Verified 06/20/25 10:15 Home Medications ?Medication ?Instructions ?Recorded ?Confirmed ?Type bisacodyl 5 mg tablet 5 mg PO DAILY 06/18/25 06/20/25 History multivitamin (Daily Multi-Vitamin 1 tablet PO DAILY 06/18/25 06/18/25 History tablet) Laboratory Tests 06/19/25 06/20/25 18:05 05:07 WBC 6.2 K/mm3 (4.5-10.0) RBC 3.72 L M/mm3 (4.2-5.4) Hgb 8.2 L g/dL (12.0-15.0) Hct 27.8 L % (37.0-47.0) MCV 74.7 L fl (80-100) MCH 22.0 L pg (26-34) MCHC 29.5 L g/dl (32-36) RDW 16.9 H % (11.5-14.5) Plt Count 389 H k/mm3 (150-375) MPV 9.1 fl (7.4-10.4) Immature Gran % (Auto) 0.3 % (0-0.5) Neut % (Auto) 64.0 % (45.5-73.1) Lymph % (Auto) 24.4 % (18.3-44.2) [place] % (Auto) 9.5 H % (2.6-8.5) Eos % (Auto) 1.5 % (0-4.4) Baso % (Auto) 0.3 % (0.2-1.2) Lymph # (Auto) 1.51 K/mm3 (0.9-3.2) [place] # (Auto) 0.6 K/mm3 (0.1-0.6) Eos # (Auto) 0.1 K/mm3 (0-0.3) Baso # (Auto) 0.0 K/mm3 (0.0-0.1) Abs Immat Gran (auto) 0.02 K/mm3 (0.00-0.031) Absolute Neuts (auto) 4.0 K/mm3 (1.3-6.7) Absolute Nucleated RBC 0.000 K/mm3 (0.0-0.012) Nucleated RBC % 0.0 % (0.0-0.2) Sodium 137 mmol/L (137-145) Potassium 4.3 mmol/L (3.4-5.0) Chloride 109 H mmol/L (98-107) Carbon Dioxide 21 L mmol/L (22-30) Anion Gap 7 mmol/L (4-12) BUN 3 L D mg/dL (7-17) Creatinine 0.69 L mg/dL (0.7-1.0) Estim Creat Clear Calc 84 ml/min Estimated GFR > 60 (59 - ) Glucose 85 mg/dL (65-110) Calcium 8.4 mg/dL (8.4-10.2) C-Reactive Protein 5.4 H mg/dL (<1.0) Patient hx anesthesia problems: none Family hx anesthesia problems: none Results Review: All pre-operative results and documents have been reviewed as part of the pre-operative evaluation. [facility] Surgical History Surgical History History of laparoscopic appendectomy Laparoscopic appendectomy Dr. Canseco 06/06/2025 Family History Family History Grandparent Cancer Hypertension Social History Social History Smoking status: Never smoker Alcohol intake: never Substance use: never Lack of Transportation: No Lack of Food: Never True Current Housing: I Have Housing Concerned About Future Housing: No Difficulty Paying Gas/Electric Bills: No Difficulty Paying for Meds: No Currently Unemployed: No Education: High School Diploma/GED Difficulty w/ Childcare or Family Care: No Spiritual care concerns: No Anes - Eval Final PreProcedure Day of Procedure 06/20/25 10:37 Patient weight: normal Heart: regular rate and rhythm Lungs: clear to auscultation Airway: Mallampati scale class II Neurological: alert and oriented Last oral intake: >/= 8 hours ASA classification: II Emergent: no Anesthetic plan: proceed Anesthesia type and monitoring: general GIVS and standard monitoring Results Review: All pre-operative results and documents have been reviewed as part of the pre-operative evaluation. Informed Consent: The patient's anesthetic plan and its attendant risks and benefits were discussed with the patient/family/POA. Questions were solicited and answers provided to the satisfaction of the patient/family/POA.
[2025-06-20] MEDS: SIMETHICONE ORAL SUSPENSION 20 MG/0.3 ML 30 ML BOTTLE 0.6 ML PO (10:55)
--- NOTE | 2025-06-20 11:05 | S_PTH ---
PATIENT: Francy Clifford LOC: [id number] U#:[id number] AGE/SX: 19/F ROOM: 258 RE06/21/[address]: Kari Fu PA-C : 2005 BED: 01 DIS: 06/22/2025 SPEC #: [id number] RECD: 06/20/25 11:38 STATUS: MARCO REStefany #: [id number] SARA: 06/20/25 11:[address]: Abhijit Strickland DEPT: [facility] Surgical RECD BY: Evelyn Sevilla ENTERED: 06/20/25 11:38 SP TYPE: Surgical OTHR DR: Isaiah Canseco MD Tissues: A - Colon Biopsy Procedures: Hematoxylin and Eosin Stain Gross and Microscopic Level 4
--- NOTE | 2025-06-20 11:16 | P.PNGI_ITS ---
Progress Note: A&P Assessment and Plan (1) Crohn's disease: Code(s): K50.90 - Crohn's disease, unspecified, without complications Status: Acute Plan See colonoscopy report. Severe Crohn's disease involving the ascending colon, causing obstruction. This is the explanation for the chronic diarrhea and anemia. Surgical team to reevalulate patient and schedule ileo-colonic resection. We will send pertinent labs in anticipation to possible biologic treatment in the future. Subjective Date/time seen: 06/20/25 11:16 Objective Data Vital Signs Vital Signs: Vital Signs - 24 hr 06/19/25 12:00 06/19/25 13:50 06/19/25 16:00 Temperature 97.8 F Pulse Rate 78 96 77 Respiratory Rate 14 Blood Pressure 101/64 Pulse Oximetry 100 Oxygen Delivery 06/19/25 20:00 06/19/25 20:51 06/19/25 21:04 Temperature 98.6 F Pulse Rate 79 87 Respiratory Rate 18 Blood Pressure 118/67 Pulse Oximetry 100 Oxygen Delivery Room Air 06/20/25 00:00 06/20/25 04:00 06/20/25 05:14 Temperature 98 F Pulse Rate 74 78 87 Respiratory Rate 16 Blood Pressure 119/72 Pulse Oximetry 98 Oxygen Delivery 06/20/25 08:02 06/20/25 08:05 06/20/25 10:17 Temperature 98.2 F Pulse Rate 90 76 Respiratory Rate 16 16 Blood Pressure 122/77 Pulse Oximetry 98 100 Oxygen Delivery Room Air Room Air Intake/Output Intake/Output: Intake & Output 06/17/25 06/18/25 06/19/25 06/20/25 23:59 23:59 23:59 23:59 Intake Total 150 5243.3 2150 Output Total 450 Balance 150 4793.3 2150 Meds/Results Medications: Active Medications Generic Name Dose Route Start Last Admin Trade Name Freq PRN Reason Stop Dose Admin Acetaminophen 1,000 mg 06/18/25 15:20 06/19/25 20:59 Acetaminophen 500 Mg Tablet PO 1,000 mg Q6H PRN Administration Mild Pain (1-3) or Fever Potassium Chloride/Sodium Chloride 1,000 mls @ 100 mls/hr 06/18/25 13:55 06/20/25 10:00 Kcl 20 Meq/Ns IV CONT Infused .Q10H JAZMYN Infusion Piperacillin Sod/Tazobactam 50 mls @ 100 mls/hr 06/18/25 18:00 06/20/25 05:47 Sod 3.375 gm/ Sodium Chloride IVPB Infused Q6HR JAZMYN Infusion Lactated Ringer's 1,000 mls @ 150 mls/hr 06/20/25 10:20 06/20/25 11:06 Lr - Lactated Ringers Iv IV CONT 150 mls/hr .Q6H40M JAZMYN Infusion Loperamide HCl 2 mg 06/18/25 18:24 Loperamide Hcl 2 Mg Capsule PO PRN PRN Diarrhea Ondansetron HCl 4 mg 06/18/25 13:52 06/20/25 01:39 Ondansetron Inj 4 Mg/2 Ml Vial IV PUSH 4 mg Q4H PRN Administration Nausea And Vomiting Simethicone 0.6 ml 06/20/25 10:55 06/20/25 10:55 Simethicone Oral Suspension 20 Mg/0.3 Ml 30 Ml Bottle PO 0.6 ml ONCE PRN Administration Gas Discomfort Radiology Results: ITS Impressions Abdomen X-Ray 06/18/25 14:31 IMPRESSION: Findings are consistent with ileus, and have not significantly changed. Hip/Pelvis X-Ray 06/18/25 14:50 Impression: 1: No acute fracture. Chest/Abdomen/Pelvis CTA 06/18/25 16:08 IMPRESSION: 1. Thickening of the kunz of the bowel in the right lower abdomen/right upper hemipelvis with surrounding fat stranding and a few small hyperdensities possibly postsurgical change. Other etiologies are possible. Correlate clinically. History of recent laparoscopic appendectomy. 2. Dilated mid and distal small bowel loops. Follow-up is recommended. 3. Moderate amount of nonspecific fluid in the pelvis. 4. No central pulmonary embolism identified. Contrast bolus is suboptimal to evaluate for a pulmonary embolism. If symptoms persist or worsen, consider a short-term follow-up study or additional imaging for further assessment. Labs Labs: Laboratory Results - last 24 hr 06/19/25 06/20/25 18:05 05:07 WBC 6.2 RBC 3.72 L Hgb 8.2 L Hct 27.8 L MCV 74.7 L MCH 22.0 L MCHC 29.5 L RDW 16.9 H Plt Count 389 H MPV 9.1 Immature Gran % (Auto) 0.3 Neut % (Auto) 64.0 Lymph % (Auto) 24.4 [place] % (Auto) 9.5 H Eos % (Auto) 1.5 Baso % (Auto) 0.3 Lymph # (Auto) 1.51 [place] # (Auto) 0.6 Eos # (Auto) 0.1 Baso # (Auto) 0.0 Abs Immat Gran (auto) 0.02 Absolute Neuts (auto) 4.0 Absolute Nucleated RBC 0.000 Nucleated RBC % 0.0 Sodium 137 Potassium 4.3 Chloride 109 H Carbon Dioxide 21 L Anion Gap 7 BUN 3 L D Creatinine 0.69 L Estim Creat Clear Calc 84 Estimated GFR > 60 Glucose 85 Calcium 8.4 C-Reactive Protein 5.4 H
--- NOTE | 2025-06-20 11:35 | PC.NURSE ---
Returned from GI lab via stretcher.
[2025-06-20] MEDS: KCL 20MEQ/0.9% SOD CHL 1,000 ML 100 ML IV CONT (11:43)
--- NOTE | 2025-06-20 12:25 | P.PNGS_ITS ---
Progress Note: A&P Assessment and Plan (1) Crohn's disease: Code(s): K50.90 - Crohn's disease, unspecified, without complications Status: Acute Assessment and Plan: * Patient seen prior to colonoscopy today, but these results were reviewed. She has severe Crohn's disease with nearly complete obstruction. Will discuss results with Dr. Canseco. This is likely causing her symptoms and persistent inflammation noted on her CT scans. Continue IV Zosyn for now. (2) Anemia: Code(s): D64.9 - Anemia, unspecified Status: Acute Assessment and Plan: * Remains anemic but Hgb stable at 8.2 today. Likely related to her Crohn's disease as seen in colonoscopy, trend labs and monitor. (3) Syncope: Code(s): R55 - Syncope and collapse Status: Acute Assessment and Plan: * Syncope likely related to dehydration/volume depletion. Telemetry without any arrhythmias and she remains in sinus rhythm after receiving IV fluids. * Will d/c telemetry. * Continue to monitor. (4) Diarrhea: Qualifiers: Diarrhea type: unspecified type Qualified Code(s): R19.7 - Diarrhea, unspecified Code(s): R19.7 - Diarrhea, unspecified Status: Acute Assessment and Plan: * Stool studies sent. Cdiff negative. Influenza A/B, RSV, COVID all negative. Imodium PRN ordered. * Colonoscopy today showed severe Crohn's disease. Report reviewed, will discuss with Dr. Canseco. (5) History of appendectomy: Code(s): Z90.49 - Acquired absence of other specified parts of digestive tract Status: Acute Assessment and Plan: * 06/06/25 for uncomplicated acute appendicitis, pathology showed acute appendicitis Plan I have discussed the patient's case and plan of care with Dr. Canseco. Subjective Subjective Date/Time Seen: 06/20/25 09:25 Patient reports: no new complaints, flatus and diarrhea Interval history: Patient seen this morning before her colonoscopy. She had some stool incontinence from the bowel prep, but otherwise no complaints. Colonoscopy planned for later today. Exam Const: General: comfortable and no acute distress GI: Inspection: non-distended GI Palp: Yes Soft to palpation, Yes Tenderness to palpation present (GI) (mild epigastric and RLQ tenderness), No Guarding due to palpation present (GI) and No Rebound tenderness present Auscultation: normal bowel sounds Objective Data Vital Signs Vital Signs: Vital Signs - 24 hr 06/19/25 13:50 06/19/25 16:00 06/19/25 20:00 Temperature 97.8 F Pulse Rate 96 77 79 Respiratory Rate 14 Blood Pressure 101/64 Pulse Oximetry 100 Oxygen Delivery 06/19/25 20:51 06/19/25 21:04 06/20/25 00:00 Temperature 98.6 F Pulse Rate 87 74 Respiratory Rate 18 Blood Pressure 118/67 Pulse Oximetry 100 Oxygen Delivery Room Air 06/20/25 04:00 06/20/25 05:14 06/20/25 08:02 Temperature 98 F Pulse Rate 78 87 90 Respiratory Rate 16 Blood Pressure 119/72 Pulse Oximetry 98 Oxygen Delivery 06/20/25 08:05 06/20/25 10:17 06/20/25 11:10 Temperature 98.2 F Pulse Rate 76 79 Respiratory Rate 16 16 21 H Blood Pressure 122/77 102/55 L Pulse Oximetry 98 100 100 Oxygen Delivery Room Air Room Air Room Air 06/20/25 11:20 06/20/25 11:30 06/20/25 11:41 Temperature 97.9 F Pulse Rate 72 74 69 Respiratory Rate 19 17 16 Blood Pressure 104/62 115/69 125/77 Pulse Oximetry 100 100 100 Oxygen Delivery Room Air Room Air Intake/Output Intake/Output: Intake & Output 06/17/25 06/18/25 06/19/25 06/20/25 23:59 23:59 23:59 23:59 Intake Total 150 5243.3 2210 Output Total 450 Balance 150 4793.3 2210 Meds/Results Medications: Active Medications Generic Name Dose Route Start Last Admin Trade Name Freq PRN Reason Stop Dose Admin Acetaminophen 1,000 mg 06/18/25 15:20 06/19/25 20:59 Acetaminophen 500 Mg Tablet PO 1,000 mg Q6H PRN Administration Mild Pain (1-3) or Fever Potassium Chloride/Sodium Chloride 1,000 mls @ 100 mls/hr 06/18/25 13:55 06/20/25 12:18 Kcl 20 Meq/Ns IV CONT 100 mls/hr .Q10H JAZMYN Infusion Piperacillin Sod/Tazobactam 50 mls @ 100 mls/hr 06/18/25 18:00 06/20/25 12:18 Sod 3.375 gm/ Sodium Chloride IVPB Infused Q6HR JAZMYN Infusion Loperamide HCl 2 mg 06/18/25 18:24 Loperamide Hcl 2 Mg Capsule PO PRN PRN Diarrhea Ondansetron HCl 4 mg 06/18/25 13:52 06/20/25 01:39 Ondansetron Inj 4 Mg/2 Ml Vial IV PUSH 4 mg Q4H PRN Administration Nausea And Vomiting Simethicone 0.6 ml 06/20/25 10:55 06/20/25 10:55 Simethicone Oral Suspension 20 Mg/0.3 Ml 30 Ml Bottle PO 0.6 ml ONCE PRN Administration Gas Discomfort Radiology Results: ITS Impressions Abdomen X-Ray 06/18/25 14:31 IMPRESSION: Findings are consistent with ileus, and have not significantly changed. Hip/Pelvis X-Ray 06/18/25 14:50 Impression: 1: No acute fracture. Chest/Abdomen/Pelvis CTA 06/18/25 16:08 IMPRESSION: 1. Thickening of the kunz of the bowel in the right lower abdomen/right upper hemipelvis with surrounding fat stranding and a few small hyperdensities possibly postsurgical change. Other etiologies are possible. Correlate clinically. History of recent laparoscopic appendectomy. 2. Dilated mid and distal small bowel loops. Follow-up is recommended. 3. Moderate amount of nonspecific fluid in the pelvis. 4. No central pulmonary embolism identified. Contrast bolus is suboptimal to evaluate for a pulmonary embolism. If symptoms persist or worsen, consider a short-term follow-up study or additional imaging for further assessment. Labs Labs: Laboratory Results - last 24 hr 06/19/25 06/20/25 18:05 05:07 WBC 6.2 RBC 3.72 L Hgb 8.2 L Hct 27.8 L MCV 74.7 L MCH 22.0 L MCHC 29.5 L RDW 16.9 H Plt Count 389 H MPV 9.1 Immature Gran % (Auto) 0.3 Neut % (Auto) 64.0 Lymph % (Auto) 24.4 [place] % (Auto) 9.5 H Eos % (Auto) 1.5 Baso % (Auto) 0.3 Lymph # (Auto) 1.51 [place] # (Auto) 0.6 Eos # (Auto) 0.1 Baso # (Auto) 0.0 Abs Immat Gran (auto) 0.02 Absolute Neuts (auto) 4.0 Absolute Nucleated RBC 0.000 Nucleated RBC % 0.0 Sodium 137 Potassium 4.3 Chloride 109 H Carbon Dioxide 21 L Anion Gap 7 BUN 3 L D Creatinine 0.69 L Estim Creat Clear Calc 84 Estimated GFR > 60 Glucose 85 Calcium 8.4 C-Reactive Protein 5.4 H
[2025-06-20 13:32] LABS: Hepatitis B Surface Antigen Negative (Negative)
--- NOTE | 2025-06-20 14:26 | WPDGIPROGNO ---
Progress Note: A&P Assessment and Plan (1) Crohn's disease: Code(s): K50.90 - Crohn's disease, unspecified, without complications Status: Acute Assessment and Plan: The patient presents with pseudotumoral Crohn's disease involving the right colon, characterized by near-obstructive, stenotic, and likely fibrotic changes. Following discussion with Dr. Canseco, a trial of medical management was decided. The patient will immediately start budesonide 9 mg daily for four weeks, while we simultaneously work to secure insurance approval for an IL-23 inhibitor, likely Guselkumab (Tremfya). The patient will be scheduled for a follow-up appointment in approximately 4 weeks to assess the response; if there is no significant improvement in edward metrics?including stool calprotectin, general status, diarrhea, anemia, and inflammatory markers?the case will be re-discussed for semi-elective surgical intervention. Plan - Start Budesonide 9 mg once a day - Obtain a follow up consultation with our office in 3-4 weeks. Will order Stool calprotectin, CRP, CBC, Iron studies to be ready for the office visit - Pre biologic therapy labs already ordered (TPMT, HBsAg, Quantiron TB test) - Diet can be advanced as tolerated Subjective Date/time seen: 06/20/25 14:26 Interval history: Patient feels well after colonoscopy, tolerating diet. Objective Data Vital Signs Vital Signs: Vital Signs - 24 hr 06/19/25 16:00 06/19/25 20:00 06/19/25 20:51 Temperature Pulse Rate 77 79 Respiratory Rate Blood Pressure Pulse Oximetry Oxygen Delivery Room Air 06/19/25 21:04 06/20/25 00:00 06/20/25 04:00 Temperature 98.6 F Pulse Rate 87 74 78 Respiratory Rate 18 Blood Pressure 118/67 Pulse Oximetry 100 Oxygen Delivery 06/20/25 05:14 06/20/25 08:02 06/20/25 08:05 Temperature 98 F Pulse Rate 87 90 Respiratory Rate 16 16 Blood Pressure 119/72 Pulse Oximetry 98 98 Oxygen Delivery Room Air 06/20/25 10:17 06/20/25 11:10 06/20/25 11:20 Temperature 98.2 F Pulse Rate 76 79 72 Respiratory Rate 16 21 H 19 Blood Pressure 122/77 102/55 L 104/62 Pulse Oximetry 100 100 100 Oxygen Delivery Room Air Room Air Room Air 06/20/25 11:30 06/20/25 11:41 06/20/25 13:45 Temperature 97.9 F 97.8 F Pulse Rate 74 69 76 Respiratory Rate 17 16 16 Blood Pressure 115/69 125/77 128/79 Pulse Oximetry 100 100 100 Oxygen Delivery Room Air Intake/Output Intake/Output: Intake & Output 06/17/25 06/18/25 06/19/25 06/20/25 23:59 23:59 23:59 23:59 Intake Total 150 5243.3 2450 Output Total 450 Balance 150 4793.3 2450 Meds/Results Medications: Active Medications Generic Name Dose Route Start Last Admin Trade Name Freq PRN Reason Stop Dose Admin Acetaminophen 1,000 mg 06/18/25 15:20 06/19/25 20:59 Acetaminophen 500 Mg Tablet PO 1,000 mg Q6H PRN Administration Mild Pain (1-3) or Fever Budesonide 9 mg 06/21/25 09:00 Budesonide 3 Mg Cap.Sr.24h PO QAM JAZMYN Potassium Chloride/Sodium Chloride 1,000 mls @ 100 mls/hr 06/18/25 13:55 06/20/25 12:18 Kcl 20 Meq/Ns IV CONT 100 mls/hr .Q10H JAZMYN Infusion Piperacillin Sod/Tazobactam 50 mls @ 100 mls/hr 06/18/25 18:00 06/20/25 12:18 Sod 3.375 gm/ Sodium Chloride IVPB Infused Q6HR JAZMYN Infusion Loperamide HCl 2 mg 06/18/25 18:24 Loperamide Hcl 2 Mg Capsule PO PRN PRN Diarrhea Ondansetron HCl 4 mg 06/18/25 13:52 06/20/25 01:39 Ondansetron Inj 4 Mg/2 Ml Vial IV PUSH 4 mg Q4H PRN Administration Nausea And Vomiting Simethicone 0.6 ml 06/20/25 10:55 06/20/25 10:55 Simethicone Oral Suspension 20 Mg/0.3 Ml 30 Ml Bottle PO 0.6 ml ONCE PRN Administration Gas Discomfort Radiology Results: ITS Impressions Abdomen X-Ray 06/18/25 14:31 IMPRESSION: Findings are consistent with ileus, and have not significantly changed. Hip/Pelvis X-Ray 06/18/25 14:50 Impression: 1: No acute fracture. Chest/Abdomen/Pelvis CTA 06/18/25 16:08 IMPRESSION: 1. Thickening of the kunz of the bowel in the right lower abdomen/right upper hemipelvis with surrounding fat stranding and a few small hyperdensities possibly postsurgical change. Other etiologies are possible. Correlate clinically. History of recent laparoscopic appendectomy. 2. Dilated mid and distal small bowel loops. Follow-up is recommended. 3. Moderate amount of nonspecific fluid in the pelvis. 4. No central pulmonary embolism identified. Contrast bolus is suboptimal to evaluate for a pulmonary embolism. If symptoms persist or worsen, consider a short-term follow-up study or additional imaging for further assessment. Labs Labs: Laboratory Results - last 24 hr 06/19/25 06/20/25 06/20/25 18:05 05:07 12:13 WBC 6.2 RBC 3.72 L Hgb 8.2 L Hct 27.8 L MCV 74.7 L MCH 22.0 L MCHC 29.5 L RDW 16.9 H Plt Count 389 H MPV 9.1 Immature Gran % (Auto) 0.3 Neut % (Auto) 64.0 Lymph % (Auto) 24.4 [place] % (Auto) 9.5 H Eos % (Auto) 1.5 Baso % (Auto) 0.3 Lymph # (Auto) 1.51 [place] # (Auto) 0.6 Eos # (Auto) 0.1 Baso # (Auto) 0.0 Abs Immat Gran (auto) 0.02 Absolute Neuts (auto) 4.0 Absolute Nucleated RBC 0.000 Nucleated RBC % 0.0 Sodium 137 Potassium 4.3 Chloride 109 H Carbon Dioxide 21 L Anion Gap 7 BUN 3 L D Creatinine 0.69 L Estim Creat Clear Calc 84 Estimated GFR > 60 Glucose 85 Calcium 8.4 C-Reactive Protein 5.4 H Hep Bs Antigen Negative
--- NOTE | 2025-06-20 14:42 | WPDGIPROGNO ---
Progress Note: A&P Assessment and Plan (1) Iron deficiency anemia: Code(s): D50.9 - Iron deficiency anemia, unspecified Status: Acute Plan Iron panel ordered. Most likely iron deficient (microcytic anemia). Will order iron infusion now and recheck levels in 3 weeks in our office. Subjective Date/time seen: 06/20/25 14:42 Objective Data Vital Signs Vital Signs: Vital Signs - 24 hr 06/19/25 16:00 06/19/25 20:00 06/19/25 20:51 Temperature Pulse Rate 77 79 Respiratory Rate Blood Pressure Pulse Oximetry Oxygen Delivery Room Air 06/19/25 21:04 06/20/25 00:00 06/20/25 04:00 Temperature 98.6 F Pulse Rate 87 74 78 Respiratory Rate 18 Blood Pressure 118/67 Pulse Oximetry 100 Oxygen Delivery 06/20/25 05:14 06/20/25 08:02 06/20/25 08:05 Temperature 98 F Pulse Rate 87 90 Respiratory Rate 16 16 Blood Pressure 119/72 Pulse Oximetry 98 98 Oxygen Delivery Room Air 06/20/25 10:17 06/20/25 11:10 06/20/25 11:20 Temperature 98.2 F Pulse Rate 76 79 72 Respiratory Rate 16 21 H 19 Blood Pressure 122/77 102/55 L 104/62 Pulse Oximetry 100 100 100 Oxygen Delivery Room Air Room Air Room Air 06/20/25 11:30 06/20/25 11:41 06/20/25 13:45 Temperature 97.9 F 97.8 F Pulse Rate 74 69 76 Respiratory Rate 17 16 16 Blood Pressure 115/69 125/77 128/79 Pulse Oximetry 100 100 100 Oxygen Delivery Room Air Intake/Output Intake/Output: Intake & Output 06/17/25 06/18/25 06/19/25 06/20/25 23:59 23:59 23:59 23:59 Intake Total 150 5243.3 2450 Output Total 450 Balance 150 4793.3 2450 Meds/Results Medications: Active Medications Generic Name Dose Route Start Last Admin Trade Name Freq PRN Reason Stop Dose Admin Acetaminophen 1,000 mg 06/18/25 15:20 06/19/25 20:59 Acetaminophen 500 Mg Tablet PO 1,000 mg Q6H PRN Administration Mild Pain (1-3) or Fever Budesonide 9 mg 06/21/25 09:00 Budesonide 3 Mg Cap.Sr.24h PO QAM JAZMYN Potassium Chloride/Sodium Chloride 1,000 mls @ 100 mls/hr 06/18/25 13:55 06/20/25 12:18 Kcl 20 Meq/Ns IV CONT 100 mls/hr .Q10H JAZMYN Infusion Piperacillin Sod/Tazobactam 50 mls @ 100 mls/hr 06/18/25 18:00 06/20/25 12:18 Sod 3.375 gm/ Sodium Chloride IVPB Infused Q6HR JAZMYN Infusion Loperamide HCl 2 mg 06/18/25 18:24 Loperamide Hcl 2 Mg Capsule PO PRN PRN Diarrhea Ondansetron HCl 4 mg 06/18/25 13:52 06/20/25 01:39 Ondansetron Inj 4 Mg/2 Ml Vial IV PUSH 4 mg Q4H PRN Administration Nausea And Vomiting Simethicone 0.6 ml 06/20/25 10:55 06/20/25 10:55 Simethicone Oral Suspension 20 Mg/0.3 Ml 30 Ml Bottle PO 0.6 ml ONCE PRN Administration Gas Discomfort Radiology Results: ITS Impressions Abdomen X-Ray 06/18/25 14:31 IMPRESSION: Findings are consistent with ileus, and have not significantly changed. Hip/Pelvis X-Ray 06/18/25 14:50 Impression: 1: No acute fracture. Chest/Abdomen/Pelvis CTA 06/18/25 16:08 IMPRESSION: 1. Thickening of the kunz of the bowel in the right lower abdomen/right upper hemipelvis with surrounding fat stranding and a few small hyperdensities possibly postsurgical change. Other etiologies are possible. Correlate clinically. History of recent laparoscopic appendectomy. 2. Dilated mid and distal small bowel loops. Follow-up is recommended. 3. Moderate amount of nonspecific fluid in the pelvis. 4. No central pulmonary embolism identified. Contrast bolus is suboptimal to evaluate for a pulmonary embolism. If symptoms persist or worsen, consider a short-term follow-up study or additional imaging for further assessment. Labs Labs: Laboratory Results - last 24 hr 06/19/25 06/20/25 06/20/25 18:05 05:07 12:13 WBC 6.2 RBC 3.72 L Hgb 8.2 L Hct 27.8 L MCV 74.7 L MCH 22.0 L MCHC 29.5 L RDW 16.9 H Plt Count 389 H MPV 9.1 Immature Gran % (Auto) 0.3 Neut % (Auto) 64.0 Lymph % (Auto) 24.4 [place] % (Auto) 9.5 H Eos % (Auto) 1.5 Baso % (Auto) 0.3 Lymph # (Auto) 1.51 [place] # (Auto) 0.6 Eos # (Auto) 0.1 Baso # (Auto) 0.0 Abs Immat Gran (auto) 0.02 Absolute Neuts (auto) 4.0 Absolute Nucleated RBC 0.000 Nucleated RBC % 0.0 Sodium 137 Potassium 4.3 Chloride 109 H Carbon Dioxide 21 L Anion Gap 7 BUN 3 L D Creatinine 0.69 L Estim Creat Clear Calc 84 Estimated GFR > 60 Glucose 85 Calcium 8.4 C-Reactive Protein 5.4 H Hep Bs Antigen Negative
[2025-06-20 15:00] LABS: HBSAB RETEST 1 4.30 S/C
[2025-06-20 15:06] LABS: HBSAB RETEST 2 4.40 S/C; Hepatitis B Surface Anti Res Negative
[2025-06-20 15:14] LABS: Iron 27 ug/dL (37-170)
[2025-06-20 15:24] LABS: Percent Iron Saturation 12 % (20-50)
[2025-06-20] MEDS: IRON SUCROSE COMPLEX 200 MG in SODIUM CHLORIDE 0.9% IV 100 ML 220 MG IVPB (16:30)
[2025-06-21] MEDS: KCL 20MEQ/0.9% SOD CHL 1,000 ML 100 ML IV CONT ×2 (00:11→11:07)
[2025-06-21] MEDS: PIPERACILLIN/TAZOBACTAM SOD 3.375 GM in SODIUM CHLORIDE 0.9% IV 50 ML 100 ML IVPB ×2 (00:11→05:42)
[2025-06-21 05:02] VITALS: BP 111/55; PULSE 72; RESP 14; TEMP 36.6; O2SAT 100
[2025-06-21 05:24] LABS: Hematocrit 30.7 % (37.0-47.0); Hemoglobin 9.1 g/dL (12.0-15.0); Mean Corpuscular HGB Conc 29.6 g/dl (32-36); Mean Corpuscular Hemoglobin 22.2 pg (26-34); Mean Corpuscular Volume 74.9 fl (80-100); Platelet Count Result 484 k/mm3 (150-375); Red Blood Count 4.10 M/mm3 (4.2-5.4); White Blood Count 9.6 K/mm3 (4.5-10.0)
[2025-06-21 05:49] LABS: Alanine Aminotransferase 8 U/L (6-35); Albumin Level 3.5 g/dL (3.5-5.1); Alkaline Phosphatase 54 U/L (38-126); Anion Gap 9 mmol/L (4-12); Aspartate Amino Transferase 16 U/L (14-36); Bilirubin,Total 0.3 mg/dL (0.2-1.3); Blood Urea Nitrogen 2 mg/dL (7-17); Calcium 9.2 mg/dL (8.4-10.2); Carbon Dioxide 21 mmol/L (22-30); Chloride 106 mmol/L (98-107); Estimated CRCL calculation 86 ml/min; Estimated Glomerular Filt Rate > 60; Glucose 99 mg/dL (65-110); Potassium 4.7 mmol/L (3.4-5.0); Sodium 136 mmol/L (137-145); Total Protein 6.8 g/dL (6.3-8.2)
[2025-06-21 09:04] VITALS: RESP 16; O2SAT 100
[2025-06-21] MEDS: BUDESONIDE 3 MG CAP.SR.24H 9 MG PO (09:04)
--- NOTE | 2025-06-21 09:35 | P.PNGS_ITS ---
Progress Note: A&P Assessment and Plan (1) Crohn's disease: Code(s): K50.90 - Crohn's disease, unspecified, without complications Status: Acute Assessment and Plan: * Colonoscopy demonstrated severe Crohn's disease with near total obstruction. Likely the cause of patient's persistent abdominal pain s/p lap appe. Patient started on IV steroids while in hospital. Plan for another dose of methylprednisolone today and monitoring with likely discharge tomorrow. Upon discharge, she will be on an extended course of oral budesonide. Likely will then be started on biologic and follow up with GI in clinic. * WBC normal (2) Anemia: Code(s): D64.9 - Anemia, unspecified Status: Acute Assessment and Plan: * Remains anemic but Hgb stable at 9.1 today. Likely related to her Crohn's disease as seen in colonoscopy. * GI gave iron infusion and plans to recheck levels in office in 3 weeks. (3) Syncope: Code(s): R55 - Syncope and collapse Status: Acute Assessment and Plan: * Syncope likely related to dehydration/volume depletion. Telemetry without any arrhythmias and she remains in sinus rhythm after receiving IV fluids. * Telemetry d/c'd. * Continue to monitor. (4) Diarrhea: Qualifiers: Diarrhea type: unspecified type Qualified Code(s): R19.7 - Diarrhea, unspecified Code(s): R19.7 - Diarrhea, unspecified Status: Acute Assessment and Plan: * Stool studies sent. Cdiff negative. Influenza A/B, RSV, COVID all negative. Imodium PRN ordered. * Colonoscopy today showed severe Crohn's disease. Started on steroids. (5) History of appendectomy: Code(s): Z90.49 - Acquired absence of other specified parts of digestive tract Status: Acute Assessment and Plan: * 06/06/25 for uncomplicated acute appendicitis, pathology showed acute appendicitis Plan I have discussed the patient's case and plan of care with Dr. Canseco. Subjective Subjective Date/Time Seen: 06/21/25 09:35 Patient reports: no new complaints, feels better, bowel movement and afebrile Interval history: Patient doing well s/p colonoscopy yesterday. Has had multiple liquid stools. Minimal abdominal pain. Denies nausea or vomiting. Exam Const: General: comfortable and no acute distress GI: Inspection: non-distended GI Palp: Yes Soft to palpation, No Tenderness to palpation present (GI) and No Guarding due to palpation present (GI) Auscultation: normal bowel sounds Other: incisions are clean and dry with glue still intact Objective Data Vital Signs Vital Signs: Vital Signs - 24 hr 06/20/25 10:17 06/20/25 11:10 06/20/25 11:20 Temperature 98.2 F Pulse Rate 76 79 72 Respiratory Rate 16 21 H 19 Blood Pressure 122/77 102/55 L 104/62 Pulse Oximetry 100 100 100 Oxygen Delivery Room Air Room Air Room Air 06/20/25 11:30 06/20/25 11:41 06/20/25 13:45 Temperature 97.9 F 97.8 F Pulse Rate 74 69 76 Respiratory Rate 17 16 16 Blood Pressure 115/69 125/77 128/79 Pulse Oximetry 100 100 100 Oxygen Delivery Room Air 06/20/25 20:26 06/20/25 21:08 06/21/25 05:02 Temperature 98.8 F 97.8 F Pulse Rate 84 72 Respiratory Rate 16 14 Blood Pressure 120/75 111/55 L Pulse Oximetry 98 100 Oxygen Delivery Room Air Intake/Output Intake/Output: Intake & Output 06/18/25 06/19/25 06/20/25 06/21/25 23:59 23:59 23:59 23:59 Intake Total 150 5243.3 3840.0 1140 Output Total 450 Balance 150 4793.3 3840.0 1140 Meds/Results Medications: Active Medications Generic Name Dose Route Start Last Admin Trade Name Freq PRN Reason Stop Dose Admin Acetaminophen 1,000 mg 06/18/25 15:20 06/19/25 20:59 Acetaminophen 500 Mg Tablet PO 1,000 mg Q6H PRN Administration Mild Pain (1-3) or Fever Budesonide 9 mg 06/21/25 09:00 06/21/25 09:04 Budesonide 3 Mg Cap.Sr.24h PO 9 mg QAM JAZMYN Administration Potassium Chloride/Sodium Chloride 1,000 mls @ 100 mls/hr 06/18/25 13:55 06/21/25 08:00 Kcl 20 Meq/Ns IV CONT 100 mls/hr .Q10H JAZMYN Infusion Loperamide HCl 2 mg 06/18/25 18:24 Loperamide Hcl 2 Mg Capsule PO PRN PRN Diarrhea Methylprednisolone Sodium Succinate 40 mg 06/21/25 18:00 Methylprednisolone Sod Succ 40 Mg Vial IV PUSH 06/21/25 18:01 ONCE ONE Ondansetron HCl 4 mg 06/18/25 13:52 06/20/25 01:39 Ondansetron Inj 4 Mg/2 Ml Vial IV PUSH 4 mg Q4H PRN Administration Nausea And Vomiting Simethicone 0.6 ml 06/20/25 10:55 06/20/25 10:55 Simethicone Oral Suspension 20 Mg/0.3 Ml 30 Ml Bottle PO 0.6 ml ONCE PRN Administration Gas Discomfort Radiology Results: ITS Impressions Abdomen X-Ray 06/18/25 14:31 IMPRESSION: Findings are consistent with ileus, and have not significantly changed. Hip/Pelvis X-Ray 06/18/25 14:50 Impression: 1: No acute fracture. Chest/Abdomen/Pelvis CTA 06/18/25 16:08 IMPRESSION: 1. Thickening of the kunz of the bowel in the right lower abdomen/right upper hemipelvis with surrounding fat stranding and a few small hyperdensities possibly postsurgical change. Other etiologies are possible. Correlate clinically. History of recent laparoscopic appendectomy. 2. Dilated mid and distal small bowel loops. Follow-up is recommended. 3. Moderate amount of nonspecific fluid in the pelvis. 4. No central pulmonary embolism identified. Contrast bolus is suboptimal to e valuate for a pulmonary embolism. If symptoms persist or worsen, consider a short-term follow-up study or additional imaging for further assessment. Labs Labs: Laboratory Results - last 24 hr 06/20/25 06/20/25 06/21/25 05:07 12:13 05:14 WBC 9.6 RBC 4.10 L Hgb 9.1 L Hct 30.7 L MCV 74.9 L MCH 22.2 L MCHC 29.6 L RDW 16.9 H Plt Count 484 H MPV 9.3 Sodium 136 L Potassium 4.7 Chloride 106 Carbon Dioxide 21 L Anion Gap 9 BUN 2 L Creatinine 0.68 L Estim Creat Clear Calc 86 Estimated GFR > 60 Glucose 99 Calcium 9.2 Iron 27 L TIBC 218 L % Saturation 12 L Total Bilirubin 0.3 AST 16 ALT 8 Alkaline Phosphatase 54 Total Protein 6.8 Albumin 3.5 Hep Bs Antigen Negative Hep Bs Antibody Negative
[2025-06-21 11:10] VITALS: BMI 20.5
[2025-06-21 14:00] VITALS: BP 113/59; PULSE 98; RESP 16; TEMP 36.6; O2SAT 100
--- NOTE | 2025-06-21 14:18 | WPDANESPN ---
Anes - Prog Note Post-Op Date/Time: 06/21/25 14:18 Cardiovascular status: normal Respiratory status: normal Airway patency: baseline Mental status: baseline Post-Op hydration status: normal Vital Signs: Last Vital Signs Temp 97.8 F 06/21/25 05:02 Pulse 72 06/21/25 05:02 Resp 16 06/21/25 09:04 BP 111/55 L 06/21/25 05:02 Pulse Ox 100 06/21/25 09:04 O2 Del Method Room Air 06/21/25 09:04 Pain Score (VAS): 0/10 I/O: Intake & Output 06/20/25 06/21/25 06/21/25 23:59 07:59 15:59 Intake Total 1390.0 1140 880 Balance 1390.0 1140 880 Laboratory Tests 06/21/25 05:14 06/21/25 05:14 06/20/25 06/20/25 06/21/25 05:07 12:13 05:14 WBC 9.6 RBC 4.10 L Hgb 9.1 L Hct 30.7 L MCV 74.9 L MCH 22.2 L MCHC 29.6 L RDW 16.9 H Plt Count 484 H MPV 9.3 Sodium 136 L Potassium 4.7 Chloride 106 Carbon Dioxide 21 L Anion Gap 9 BUN 2 L Creatinine 0.68 L Estim Creat Clear Calc 86 Estimated GFR > 60 Glucose 99 Calcium 9.2 Iron 27 L TIBC 218 L % Saturation 12 L Total Bilirubin 0.3 AST 16 ALT 8 Alkaline Phosphatase 54 Total Protein 6.8 Albumin 3.5 Hep Bs Antibody Negative Microbiology 06/19/25 08:02 Stool Salmonella/Shigella Screen - Final 06/19/25 08:02 Stool Shiga Toxin (EIA) - Final 06/18/25 15:39 Blood Blood Culture - Preliminary 06/18/25 15:32 Blood Blood Culture - Preliminary Post-procedural complaints: none Patient Feedback: Patient satisfied with anesthetic care.
[2025-06-21 20:37] VITALS: BP 116/67; PULSE 88; RESP 18; TEMP 36.5; O2SAT 100
[2025-06-22 04:59] VITALS: BP 112/68; PULSE 77; RESP 18; TEMP 36.4; O2SAT 99
[2025-06-22] MEDS: BUDESONIDE 3 MG CAP.SR.24H 9 MG PO (10:32)
--- NOTE | 2025-06-22 10:57 | PM.PNGS ---
Progress Note: A&P Assessment and Plan (1) Crohn's disease: Code(s): K50.90 - Crohn's disease, unspecified, without complications Status: Acute Assessment and Plan: exam benign, we will advance to low-fiber low residual diet, if tolerating diet okay to DC home with medications as per GI Subjective Subjective Date/Time Seen: 06/22/25 10:57 Interval history: Feels good, tolerating a full liquid diet, denies any abdominal pain Review of Systems Review of Systems: All systems reviewed & are unremarkable except as noted in HPI and below Exam Const: General: cooperative, comfortable and no acute distress Resp: Auscultation: clear to auscultation bilaterally Cardio: Rate: regular rate Rhythm: regular rhythm GI: Inspection: normal to inspection and non-distended GI Palp: No abdominal tenderness and Yes Soft to palpation Objective Data Vital Signs Vital Signs: Vital Signs - 24 hr 06/21/25 14:00 06/21/25 20:37 06/22/25 04:59 Temperature 36.6 C 36.5 C 36.4 C Pulse Rate 98 88 77 Respiratory Rate 16 18 18 Blood Pressure 113/59 L 116/67 112/68 Pulse Oximetry 100 100 99 Intake/Output Intake/Output: Intake & Output 06/19/25 06/20/25 06/21/25 06/22/25 23:59 23:59 23:59 23:59 Intake Total 5243.3 3840.0 2140 290 Output Total 450 Balance 4793.3 3840.0 2140 290 Meds/Results Medications: Active Medications Generic Name Dose Route Start Last Admin Trade Name Freq PRN Reason Stop Dose Admin Acetaminophen 1,000 mg 06/18/25 15:20 06/19/25 20:59 Acetaminophen 500 Mg Tablet PO 1,000 mg Q6H PRN Administration Mild Pain (1-3) or Fever Budesonide 9 mg 06/21/25 09:00 06/22/25 10:32 Budesonide 3 Mg Cap.Sr.24h PO 9 mg QAM JAZMYN Administration Loperamide HCl 2 mg 06/18/25 18:24 Loperamide Hcl 2 Mg Capsule PO PRN PRN Diarrhea Ondansetron HCl 4 mg 06/18/25 13:52 06/20/25 01:39 Ondansetron Inj 4 Mg/2 Ml Vial IV PUSH 4 mg Q4H PRN Administration Nausea And Vomiting Simethicone 0.6 ml 06/20/25 10:55 06/20/25 10:55 Simethicone Oral Suspension 20 Mg/0.3 Ml 30 Ml Bottle PO 0.6 ml ONCE PRN Administration Gas Discomfort Radiology Results: ITS Impressions Abdomen X-Ray 06/18/25 14:31 IMPRESSION: Findings are consistent with ileus, and have not significantly changed. Hip/Pelvis X-Ray 06/18/25 14:50 Impression: 1: No acute fracture. Chest/Abdomen/Pelvis CTA 06/18/25 16:08 IMPRESSION: 1. Thickening of the kunz of the bowel in the right lower abdomen/right upper hemipelvis with surrounding fat stranding and a few small hyperdensities possibly postsurgical change. Other etiologies are possible. Correlate clinically. History of recent laparoscopic appendectomy. 2. Dilated mid and distal small bowel loops. Follow-up is recommended. 3. Moderate amount of nonspecific fluid in the pelvis. 4. No central pulmonary embolism identified. Contrast bolus is suboptimal to evaluate for a pulmonary embolism. If symptoms persist or worsen, consider a short-term follow-up study or additional imaging for further assessment. Labs Labs: Laboratory Results - last 24 hr 06/20/25 12:13 TB Test (QFT) Gold Plus Negative TB (QFT) Incubation TB Test (QFT) Nil 0.05 TB Test (QFT) Mitogen >10.00 TB Test (QFT) +TB1 -NIL 0.05 TB Test (QFT) +TB2 -NIL 0.06 TB Test (QFT) Criteria Comment
--- NOTE | 2025-06-24 15:26 | P.DS_ITS ---
DS: Admitting Diagnosis Discharge Date 06/22/25 Admitting Diagnosis Nausea and vomiting s/p laparoscopic appendectomy 06/06 DS: Discharge Diagnosis Discharge Diagnosis (1) Nausea & vomiting: Code(s): R11.2 - Nausea with vomiting, unspecified Status: Acute (2) Anemia: Code(s): D64.9 - Anemia, unspecified Status: Acute (3) Syncope: Code(s): R55 - Syncope and collapse Status: Acute (4) Diarrhea: Qualifiers: Diarrhea type: unspecified type Qualified Code(s): R19.7 - Diarrhea, unspecified Code(s): R19.7 - Diarrhea, unspecified Status: Acute (5) Epigastric pain: Code(s): R10.13 - Epigastric pain Status: Acute (6) Crohn's disease: Code(s): K50.90 - Crohn's disease, unspecified, without complications Status: Acute Assessment and Plan: Colonoscopy on 06/20 demonstrated severe localized inflammatory disease compatible with Crohn's disease in the ascending colon. Pseudotumor oral tissue proliferation with near total obstruction, not allowing passage of the scope more proximally to the cecal area. Serpinguinous ulcerations, easy bleeding with contact, erosions, and smaller pseudo polyps in the area. Biopsies sent and demonstrated chronic colitis with surface ulceration, crypt distortion and granulomas present. No evidence of acte cryptitis, crypt abscesses or transmural inflammation. (7) History of appendectomy: Code(s): Z90.49 - Acquired absence of other specified parts of digestive tract Status: Acute Assessment and Plan: Laparoscopic appendectomy on 06/06/2025. Appendix largely inflamed. No perforation. DS: Summary Hospital Course Reason for hospitalization: Patient underwent laparoscopic appendectomy on 06/06/2025 him was admitted for postoperative ileus from 06/12/2025 to 06/13 09/08. During this admission she was found to be anemic with hemoglobin as low as 7.8. Patient was also found to have nonsymptomatic atrophic kidney on CT imaging. Abnormal EKG reading also no amy. Patient was instructed to take multivitamin with iron and follow up with her PCP regarding these issues. However, sukhwinder was not yet able to make it to her PCP as she began having nausea and vomiting the morning of 06/18/2025. She also had an episode of syncope. Denied hitting her head. She was brought into the general surgery office be evaluated and appeared to be ill and tachycardic. Endorses abdominal pain. Patient also endorsed diarrhea since her previous discharge 5 days prior. Admitted to the hospital for workup. Hospital Course: Once admitted, IV Zosyn and Flagyl was started. Patient placed on telemetry. Labs drawn and demonstrated an elevated white blood cell count of 22.6. Abdominal x-ray was obtained and demonstrated findings consistent with ileus, not significantly changed from previous admission. An x-ray of the hip and pelvis were also obtained, as patient was having left hip pain after fall. CTA of the chest abdomen and pelvis was then obtained and demonstrated thickening of the kunz of the bowel in the right lower abdomen/right upper juancho pelvis with surrounding fat stranding few small hyperdensities possibly postsurgical change. Dilated mid and distal small bowel loops. Moderate amount of nonspecific fluid in the pelvis. No central pulmonary embolism identified. GI team was consulted, as suspicion for Crohn's/IBD was high. Patient continued on PPI and p.r.n. antiemetics and clear liquids. GI recommended colonsocopy, stool calprotectin, and CRP levels. Also d/c'd flagyl, as Zosyn was on board. The following day, colonoscopy was obtained and demonstrated severe localized inflammatory disease compatible with Crohn's disease in the ascending colon. Near total obstruction. This is likely the etiology of patient's symptoms and anemia. Hemoglobin stable on 06/20 8.2. Taken off of telemetry. After discussions between general surgery and GI team, patient was started on IV steroids with plan to continue extended course of oral budesonide upon discharge. Follow-up with GI team in clinic to likely include implementation of biologic. CRP 5.4. WBC count continued to decline to normal levels. Hemoglobin slowly increasing to 9.1 by 06/21. Abdominal pain improving. Diet slowly advanced as patient tolerated. Patient continued on IV steroid rates during hospital admission. Doing well on 06/22. Surgically stable for discharge. Sent home with prescription for budesonide instructions to follow up with both GI team and general surgery team. Status at Discharge Functional status at discharge: independent ambulation Overall status at discharge: patient is back to baseline Time Spent with Patient Time attestation: Total time spent providing and/or coordinating discharge services: Time spent: Greater than 30 minutes Exam Const: General: comfortable and no acute distress Eyes: General: appearance normal, both eyes and all related structures Neck: Neck: supple Resp: Effort & Inspection: normal respiratory effort Cardio: Rate: regular rate GI: Inspection: non-distended GI Palp: Yes Soft to palpation and No Tenderness to palpation present (GI) Skin: General skin exam: normal color Neuro: Sensory Exam: normal sensation Extrem: General: normal to inspection Psych: Mental Status: mental status grossly normal DS: Data Data Completed and Pending Completed studies during hospitalization: Pending at discharge 06/20/25 11:05 Surgical [PTH] Routine Procedures/Treatments: Procedures Operation Date: 06/20/25 11:30 Actual Procedure Side Surgeon p Screening Colonoscopy with right colon biopsies (cold forceps), tattoo injection 2 mL at site of right colon biopsies Abhijit Strickland MD Imaging Radiologist's impression: ITS Impressions Abdomen X-Ray 06/18/25 14:31 IMPRESSION: Findings are consistent with ileus, and have not significantly changed. Hip/Pelvis X-Ray 06/18/25 14:50 Impression: 1: No acute fracture. Chest/Abdomen/Pelvis CTA 06/18/25 16:08 IMPRESSION: 1. Thickening of the kunz of the bowel in the right lower abdomen/right upper hemipelvis with surrounding fat stranding and a few small hyperdensities possibly postsurgical change. Other etiologies are possible. Correlate clinically. History of recent laparoscopic appendectomy. 2. Dilated mid and distal small bowel loops. Follow-up is recommended. 3. Moderate amount of nonspecific fluid in the pelvis. 4. No central pulmonary embolism identified. Contrast bolus is suboptimal to evaluate for a pulmonary embolism. If symptoms persist or worsen, consider a short-term follow-up study or additional imaging for further assessment. Discharge Plan Discharge Attending physician on discharge: Isaiah Canseco Discharging Clinician: Isaiah Canseco Anticipated Discharge Date/Time: 06/22/25 12:00 Patient Disposition: Home Activity: unlimited Diet: low fiber Discharge Instructions: Return to ER or call office if recurrent pain or nausea and vomiting. Take discharge meds as written. Follow up with Dr. Canseco and Dr. Strickland as instructed. Patient Instructions: Antibiotic Form, Crohn Disease (DC), Low Fiber Diet (DC) Patient Language: [place] Stand Alone Forms: General Discharge Information, Work/School Release IP Follow-up/Referrals: Abhijit Strickland MD [Physician, Gastroenterology] Referral Note: Follow up with Dr. Strickland in 2-3 weeks. Call his office for appt. Isaiah Canseco MD [Physician, General Surgery] Referral Note: Follow up with Dr. Canseco in the office in 2 weeks. Call for appt. Discharge Medications: Continued multivitamin [Daily Multi-Vitamin] Tablet 1 tablet PO DAILY budesonide 3 mg capsule,delayed,extend.release 9 mg PO DAILY 30 Days Qty: 90 1RF Discontinued bisacodyl 5 mg tablet 5 mg PO DAILY Date of admission: 06/21/25 08:48 Primary Care Provider: Ann,Francy Admitting Provider: Isaiah Canseco Attending physician on admission: Isaiah Canseco Condition: Improved
== END 2025-06-22 14:00 | disposition home or self-care (01) | DRG 245 ==
PROVIDERS: Internal Medicine Gastroenterology; Nurse Practitioner Family; Admitting Provider Surgery
PROC: 0DJD8ZZ Inspection of Lower Intestinal Tract, Via Natural or Artificial Opening Endoscopic (ICD-10-PCS; CPT 45378; principal; 2025-06-20 11:30)
DX: K50.112 Crohn's disease of large intestine with intestinal obstruction (principal); D64.9 Anemia, unspecified; E86.0 Dehydration; R10.13 Epigastric pain; R55 Syncope and collapse; N26.1 Atrophy of kidney (terminal); Z20.822 Contact with and (suspected) exposure to COVID-19; Z90.49 Acquired absence of other specified parts of digestive tract
CPT/HCPCS: 36415; 71275; 73502; 74019; 74177; 80048; 80053; 81001; 83540; 83550; 83735; 84433; 85025; 85027; 86140; 86480; 86706; 86850; 86900; 86901; 87040; 87045; 87046; 87340; 87427; 87493; 87637; 88305; 93005; 96361; 96365; 96366; 96375; A9270; G0378; G0379; J1756; J1836; J2405; J2470; J2543; J2704; J2919; J3480; J7120; Q9967